=== PATIENT | male | born 1960 | race Caucasian/White ===

== ENCOUNTER 2024-03-10 21:38 | Inpatient (IN) | payer OTHER, SELFPAY ==
[2024-03-10 17:45] VITALS: BP 140/93
--- NOTE | 2024-03-10 18:39 | ED.GENMED ---
History of Present Illness
General
Chief Complaint: Abdominal Symptoms
Time Seen by Provider: 03/10/24 18:35
Travel History
Have you had any contact with someone who has COVID-19?: No
Do you have any symptoms of coronavirus? Fever > 100 degrees, chills, cough, shortness of breath, sore throat, loss of taste or smell, muscle aches, or headache?: No
History of Present Illness
History of Present Illness:
HPI: The patient presents with abrupt onset nausea and vomiting that started about 6 hours ago. He did not have any diarrhea. He states that he had a bowel movement about 4 hours ago that was like 'small boulders'�no diarrhea. He still has
ongoing symptoms. He denies any prior abdominal surgeries.
EXAM:
GENERAL: The patient has some intermittent retching and appears uncomfortable
HEENT: Moist oral mucosa
CARDIOVASCULAR: No murmurs, normal heart rate, regular rhythm, No chest wall tenderness
PULMONARY: No respiratory distress, breath sounds are clear and equal
ABDOMEN: Soft with no peritoneal signs, mild diffuse tenderness
NEUROLOGIC: Excellent strength all extremities, no coordination deficits
PSYCHIATRIC: Appropriate mental status, normal insight and judgement
EXTREMITIES: Nontender, no edema, moves all extremities equally
SKIN: No rash, no lesions
TIME OF INITIAL ENCOUNTER: 6:30 PM
NUMBER AND COMPLEXITY OF PROBLEMS ADDRESSED AT THE ENCOUNTER
� Chronic conditions affecting care: CAD, high blood pressure, hyperlipidemia, WPW, diabetes
� Acute Exacerbation and/or Progression of Chronic Illness:
� Differential Diagnosis includes: Viral syndrome/gastroenteritis, appendicitis less likely, bowel obstruction unlikely
AMOUNT AND/OR COMPLEXITY OF DATA TO BE REVIEWED AND ANALYZED
� I performed an independent evaluation of and my interpretation is:
EKG:
CT: CT imaging personally viewed and shows evidence of a bowel obstruction.
X-rays:
Laboratory Studies: White count 13.8, hemoglobin 0.4, renal function normal, glucose 365
Other:
� Review of other/old records: The patient was here in 2021 with chest pain in the setting of HOCM and had an elevated troponin at that time
� Clinical information was obtained by an independent historian: None needed
� Prescriptions/Medications Considered but not given:
� Further testing considered but not performed:
RISK OF COMPLICATIONS AND/OR MORBIDITY OR MORTALITY OF PATIENT MANAGEMENT
� Social determinants of health affecting care:
� Discussion with other providers: Discussed case with Dr. Remy -suspects that leukocytosis is related to dehydration as he does have hemoglobin of 16.4. The patient was given IV fluids. Dr. Nieves for admission
� Escalation of care including admission/observation vs risk of discharge considered: CT imaging shows bowel obstruction. Leukocytosis is noted. However on reassessment the patient appears more comfortable. Recommend keeping
the patient in the hospital for IV fluids/n.p.o.
Past History
Past History
ED Past Medical History: Arrthythmia (wpw), CAD, HTN, Hypercholesterolemia, NIDDM and Other (HOCM, WPW, LBBB, MR, BLAS, Migraines, )
ED Past Surgical History: Cardiac (ablation) and Orthopedic (Right hip replacement, Right hand surgery)
Social History
Tobacco: Smoker
Alcohol: None
Drug: None
Personal:
Living: with family
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
Family History
Family History: Other (Noncontributory)
Phy Exam
Physical Exam
Physical Exam:
See HPI
Course
Orders/Labs/Results
Orders:
Orders
03/10/24 18:35
0.9% Sodium Chloride 1000 ml [Nss] 1,000 ml IV BOLUS
Ondansetron Injectable [Zofran] 4 mg IV NOW STA
03/10/24 18:39
CT Abd/pelvis W Iv Cont Urgent
Comment:
Reason For Exam: pain vomiting
Famotidine [Pepcid] 20 mg IV NOW STA
03/10/24 18:44
Comprehensive Metabolic Panel Urgent
Lipase Urgent
03/10/24 18:45
Complete Blood Count/With Diff Urgent
Abnormal Lab Results
03/10/24 03/10/24
18:44 18:45
WBC 13.8 H 10^3/uL
(4.8-10.8)
MPV 10.9 H fL
(7.4-10.4)
Abs Immat Gran (auto) 0.1 H 10^3/uL
(0-0.05)
Absolute Neuts (auto) 12.2 H 10^3/uL
(1.4-6.5)
Absolute Lymphs (auto) 0.9 L 10^3/uL
(1.2-3.4)
Neutrophils % 88.2 H %
(42.2-75.2)
Lymphocytes % 6.8 L %
(20.5-51.1)
Glucose 365 H mg/dl
(70-99)
Calcium 10.4 H mg/dl
(8.4-10.2)
03/10/24 18:45
03/10/24 18:44
Vital Signs
Initial and Last Documented VS:
Initial Vital Signs
Temp Pulse Resp BP Pulse Ox
97.6 F 127 18 140/93 99
03/10/24 17:45 03/10/24 17:45 03/10/24 17:45 03/10/24 17:45 03/10/24 17:45
Last Documented Vital Signs
Temp Pulse Resp BP Pulse Ox
97.6 F 118 19 155/83 99
03/10/24 17:45 03/10/24 19:30 03/10/24 19:30 03/10/24 19:00 03/10/24 17:45
*Critical Care Note
Total Time (30-74mins, 75-104mins- exclusive of procedures): Not Applicable
ED Attending Note
-
Portions of this chart may have been created with voice recognition software.� Occasional wrong word or��sound alike� substitutions may have occurred due to the inherent limitations of voice recognition software.
Discharge Plan
Departure
Patient Disposition: Admit
Date of Disposition: 03/10/24
Time of Disposition: 20:52
Presentation/result/management discussed w/ accepting MD/DO: Hospitalist
Discharge Problem:
Small bowel obstruction
Prescriptions:
No Action
aspirin 81 mg Tablet,Chewable
81 mg PO DAILY 30 Days Qty: 30 0RF
rosuvastatin 40 mg Tablet
40 mg PO QPM 30 Days Qty: 30 0RF
insulin glargine [Lantus Solostar U-100 Insulin] 100 unit/mL (3 mL) insulin pen
10 unit SC QPM Qty: 15 2RF
(DME) pen needle, diabetic [1st Tier Unifine Pentips Plus] 29 gauge x 1/2' needle
See Rx Instructions .ROUTE Qty: 100 1RF
Rx Instructions:
As directed
atenolol 25 mg tablet
25 mg PO BID Qty: 60 2RF
Interventions
Interventions:
*Risk Screen - Suicide Last Done: 03/10/24 18:58
*General Assessment Last Done: 03/10/24 18:58
*Neglect/Abuse Screening Last Done: 03/10/24 18:58
ED- Fall Risk Assessment Last Done: 03/10/24 18:58
*ED COVID-19 Vaccine History Last Done: 03/10/24 17:46
BN-Lvuaui-Lmdnitjhtk Assessment Last Done: 03/10/24 18:58
Discharge Date and Time
Print Language: MONGOLIAN
[2024-03-10] MEDS: NSS 1000 IV ×2 (18:43→22:51)
[2024-03-10] MEDS: ZOFRAN 4 MG IV (18:44)
[2024-03-10] MEDS: PEPCID 20 MG IV (18:44)
[2024-03-10 18:51] VITALS: BP 155/103
[2024-03-10 18:59] LABS: % Basophils 0.6 % (0-2); % Eosinophils 0.1 % (0-6); % Immature Granulocytes 0.4 % (0-0.5); % Lymphocytes 6.8 % (20.5-51.1); % Monocytes 3.9 % (1.7-9.3); % Neutrophils 88.2 % (42.2-75.2); Absolute Basophils 0.1 10^3/uL (0-0.2); Absolute Immature Granulocytes 0.1 10^3/uL (0-0.05); Absolute Lymphocytes 0.9 10^3/uL (1.2-3.4); Absolute Monocytes 0.5 10^3/uL (0.1-0.6); Absolute Neutrophils 12.2 10^3/uL (1.4-6.5); Hemoglobin 16.4 g/dL (13.0-18.0); Mean Corp Hgb Conc. 35.7 g/dL (33.0-37.0); Mean Corpuscular Hgb 30.1 pg (27.0-31.0); Mean Corpuscular Volume 84.4 fL (80.0-94.0); Mean Platelet Volume 10.9 fL (7.4-10.4); Nucleated Red Blood Cells % 0 % (-); Platelet Count 240 10^3/uL (130-400); Red Blood Cell Count 5.45 10^6/uL (4.70-6.10); White Blood Cell Count 13.8 10^3/uL (4.8-10.8)
[2024-03-10 19:00] VITALS: BP 155/83
[2024-03-10 19:11] LABS: ALT (SGPT) 19 U/L (0-50); AST (SGOT) 20 U/L (17-59); Albumin 4.3 g/dl (3.5-5.0); Alkaline Phosphatase 98 U/L (38-126); Blood Urea Nitrogen 17 mg/dl (9-20); Calcium 10.4 mg/dl (8.4-10.2); Carbon Dioxide 29 mmol/L (22-30); Chloride 99 mmol/L (98-107); Glucose 365 mg/dl (70-99); Lipase 85 U/L (23-300); Potassium 4.5 mmol/L (3.5-5.1); Sodium 136 mmol/L (135-145); Total Bilirubin 0.7 mg/dl (0.2-1.3); Total Protein 6.9 g/dl (6.3-8.2); eGFR > 60.00
--- NOTE | 2024-03-10 21:33 | HPS.HSE ---
Family Physician
-
Family Physician: NOT KNOW UNKNOWN - PT DOES
Chief Complaint
-
Abd Pain
History of Present Illness
Patient is a 63y M with PMH significant for WPW and DM-II who presents to ED complaining of abdominal pain. Patient states that his symptoms started shortly after lunch today at [employer]. He developed a 'gassy' feeling that did not improve despite
time and 3 tabs of PeptoBismol. When he returned home from lunch, he had a small BM around 3 PM. This did not improve his symptoms. In fact, his pain became much more sever following this. Patient describes severe abdominal pain with inability to
find a comfortable position. He attempted to induce vomiting at home unsuccessfully. He presented to the ED for evaluation when his symptoms did not adam.
Patient has had no emesis [employer] or here in the ED.
He denies any prior history of similar symptoms.
He denies any prior history of intra-abdominal surgery.
Patient has multiple medical issues including Keisha-Parkinson's White Syndrome, HOCM, DM-II and hypertension. However, he admits that he is not taking any medications at present and has not been in quite some time.
Medical History
Past Medical History
Past Medical History: Reports Other
Additional Past Medical History:
WPW
HOCM
Hypertension
DM-II
Known LBBB
Past Surgical History: Reports Other
Additional Past Surgical History:
Cardiac / Catheter Ablation x Multiple - Partial Modification of Pathway (failed ablation)
Right VANNA
Right Hand Surgery
Social History
Tobacco: Smoker (Current every day smoker. 1/2 ppd with total of 40+ pack years.)
Alcohol: None
Drug: None
Family History
Family History: Other (Father: Colon Cancer Sister: Breast Cancer)
Allergies / Home Medications
Allergies reflects when Allergies were last updated in [facility].
Home Medications with original date entered in [facility]
Allergy/Medication List:
Allergies
Allergy/AdvReac Type Severity Reaction Status Date / Time
oxycodone Allergy Itching Verified 10/24/22 21:45
codeine [Codeine] AdvReac Nausea / Verified 10/24/22 21:45
Vomiting
Home Medications
No Meds [No Current Medications] 03/10/24
Patient is prescribed atenolol, Lantus and rosuvastatin - but admits he has taken no meds in quite some time.
Review of Systems
-
History Source: Patient
A 12 point ROS was completed and negative except as noted: Yes
Constitutional: Denies Fever or Chills
Respiratory: Denies Cough or Trouble Breathing
Cardiac: Denies Chest Pain or Palpitations
Abdomen/GI: Reports Abdominal Pain and Nausea; Denies Vomiting, Diarrhea, Bloody Stools or Black Stools
: Denies Dysuria, Frequency or Flank Pain
Neurological: Denies Dizzy or Headache
Psych: Denies Depression or Anxiety
Physical Exam
Vital Signs
Vital Signs
Temp Pulse Resp BP Pulse Ox
97.6 F 118 19 155/83 99
03/10/24 17:45 03/10/24 19:30 03/10/24 19:30 03/10/24 19:00 03/10/24 17:45
Physical Exam
General: Other (63y M in mild distress due to abdominal pain.)
HEENT: Moist mucous membranes and PERRLA
Respiratory: Clear; No Wheezes, Rales or Rhonchi
Cardiac: S1/S2, Tachycardia and Murmur (II/ MONI)
GI: Soft, Non Distended, Normal Bowel Sounds and Other (Pos tenderness with voluntary guarding - especially across lower abdomen.)
Musculoskeletal: No Clubbing, No Cyanosis and No Edema
Neuro: AO x 3
Laboratory Results
-
03/10/24 18:45
03/10/24 18:44
Laboratory Results
Total Bilirubin 0.7 mg/dl (0.2-1.3) 03/10/24 18:44
AST 20 U/L (17-59) 03/10/24 18:44
ALT 19 U/L (0-50) 03/10/24 18:44
Alkaline Phosphatase 98 U/L (38-126) 03/10/24 18:44
Lipase 85 U/L (23-300) 03/10/24 18:44
Impression/Plan
-
A/P: Patient is a 63y M with PMH significant for WPW, DM-II and noncompliance who presents to ED complaining of severe abdominal pain that started this afternoon.
SBO
- Admit for further evaluation and treatment.
- CT done today shows suspected SBO - though no transition point is identified by CT report.
- NPO, IVF, supportive care with pain control and antiemetics.
- NG decompression if pain worsens or patient develops emesis.
- Surgery consulted for additional recommendations / potential intervention.
- Follow for clinical improvement.
- Note no prior abdominal surgeries.
WPW
- Patient tachycardic on exam and tele showing HR = 124 bpm.
- Possible sinus tach due to pain; however, concern with partially treated WPW and regularity of his tachycardia.
- Check EKG now.
- Monitor on telemetry.
- Avoid AV doris blockers.
- Cardiology evaluation for additional recommendations.
DM-II
- Uncontrolled / noncompliant with treatment.
- Glucose > 300 today without elevated anion gap, etc.
- Begin Lantus daily.
- Follow glucose and cover with SSI as needed.
- Update A1C.
Benign Hypertension
- Previously on atenolol, but patient stopped this as he felt fatigued.
- Monitor BP with adequate pain control.
- Consider initiation of BP medication if needed.
DVT Prophylaxis: SCDs
Code Status: Full
[2024-03-10 22:47] VITALS: BP 154/92; BMI 25.9
[2024-03-10] MEDS: TORADOL 15 MG IV (22:53)
[2024-03-10 23:53] LABS: Glucose - Point of Care 301 mg/dl (70-99)
[2024-03-11] MEDS: TENORMIN 50 MG PO (00:41)
[2024-03-11] MEDS: LANTUS 0.0299999999999999989 UNITS SC (00:45)
[2024-03-11 02:47] LABS: TSH Reflex To Free T4 1.23 uIU/ml (0.47-4.68)
[2024-03-11 03:53] VITALS: BP 105/62
[2024-03-11 05:49] VITALS: BMI 26.0
[2024-03-11 05:56] LABS: Glucose - Point of Care 247 mg/dl (70-99)
--- NOTE | 2024-03-11 06:01 | PTCARENOTE ---
Patient received from ED via stretcher and ambulated to bed with Ax1. He was oriented to room and surroundings. Patient continues c/o abdominal pain and cramping. No BM this shift. Toradol as per prn order with relief. IVF as ordered. Tele
rhythm unclear. HR 110-120's. Am EKG done A-flutter with variable AV Block. TT to COURT COMMISSIONER, covering house. Atenolol as per order. Rate decreased to 70's and Aflutter noted on tele monitor. Fingerstick glucose 301. Patient refused Lantus 10
units stated she would take 3 units. Order obtained and administered. Am Fingerstick 247. Patient voided 300ml sade urine, Bladder scan 0.
[2024-03-11] MEDS: NOVOLOG FLEXPEN-MODERATE RESISTANCE 3 UNITS SC ×2 (06:11→12:41)
[2024-03-11] MEDS: NSS 1000 IV ×3 (06:13→22:37)
[2024-03-11 06:55] LABS: Hematocrit 41.1 % (39.0-52.0); Hemoglobin 14.4 g/dL (13.0-18.0); Mean Corpuscular Hgb 29.9 pg (27.0-31.0); Mean Corpuscular Volume 85.4 fL (80.0-94.0); Mean Platelet Volume 11.6 fL (7.4-10.4); Platelet Count 233 10^3/uL (130-400); Red Blood Cell Count 4.81 10^6/uL (4.70-6.10); Red Cell Dist. Width 12.9 % (11.5-14.5); White Blood Cell Count 10.1 10^3/uL (4.8-10.8)
--- NOTE | 2024-03-11 07:47 | CON.CAR ---
Addendum entered and electronically signed by Jignesh Smith MD 03/11/24 19:23:
63-year-old man with history of hypertrophic cardiomyopathy, also with history of WPW syndrome status post attempts at ablation, now with an accessory pathway that is not consistently conducting and not associated with tachyarrhythmia. Last seen in
our office in August 2020 now admitted with partial small bowel obstruction currently being managed medically, found to have new onset atrial flutter with controlled ventricular response. No symptoms, rate controlled
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
PSH: Right total hip arthroplasty, ORIF of right wrist
Meds: Currently none, had been on atenolol, statins in the past, had been on glimepiride
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
FH: Currently noncontributory
Allergies: Poorly tolerant of statins, OxyContin
ROS: Negative except as above
126/75, pulse 64, respirate 16, afebrile, sats 98%, disheveled, head neck exam unremarkable, lungs relatively clear, systolic murmur, no obvious jugular venous pressure, carotid bruits, abdomen somewhat tender to palpation with hypoactive bowel
sounds extremities without edema neuro nonfocal
Abdominal and pelvic CT: Pancreatic atrophy consistent with pancreatitis
Hemoglobin 14.4 white count 10.1, BUN and creatinine 19 and 0.6, troponin 0.017
Atrial flutter with 2:1 conduction and PVCs, intraventricular conduction delay
Impression:
SBO 03/10/24
Newly diagnosed atrial flutter of unclear duration
Hypertrophic cardiomyopathy
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
HTN
cLBBB
Mild to mod MR by echo 05/16/22
DM 2
Depression
Hypercholesterolemia
Ongoing tobacco abuse
History of sleep apnea
Lexiscan nuclear stress test 07/19/2017: Moderate area of mildly decreased perfusion that is minimally reversible in the inferior lateral, inferior, inferior septal segments consistent with soft tissue attenuation, EF 55%, dilated left ventricle
Echo February 2024: Small LV with severe LVH, EF 50-55%, LVOT gradient 147 mmHg increasing to 229 mmHg with Valsalva, severely dilated left atrium, mildly dilated right atrium, normal RV, mild to moderate MR chordal KADIE, aortic sclerosis with mild to
moderate aortic regurgitation normal pulmonary artery systolic pressure
Plan:
He presents with atrial flutter of uncertain duration and a ventricular response that is reasonable despite the absence of beta-kristi therapy. Furthermore he has hypertrophic cardiomyopathy with an extreme LVOT gradient.
This is all in the setting of a partial small bowel obstruction that hopefully can be managed noninvasively.
Inadequate social support and noncompliance or major issues in this case as well.
At present would simply focus on anticoagulation and adequate rate control. If a beta-kristi can be added without producing symptomatic bradycardia, that would be ideal.
For now, continue heparin. Start beta-blockade over the next 24 hours if possible.
Happily and surprisingly, his accessory pathway seems to have atrophied and is no longer a factor, which is especially of benefit in the setting of atrial arrhythmia
He will need case management consultation to see if he can obtain insurance, qualify for Medicaid, etc.
Thereafter we can determine whether he should undergo transesophageal echo, cardioversion, rate control, etc.
Further management can be based upon the results of his clinical course.
Original Note:
Consultation
Consultation Request
Date/Time Consultation Requested: 03/10/24 at 2305
Date/Time Consultation Performed: 03/11/24 at 0730
Requesting Provider: Dr. Nivees with the hospitalists
Performing Provider: Dr. ZIGGY Smith
Reason for Consultation: Abnormal ECG, possible atrial flutter
Medical History
-
History of Present Illness:
Patient came to [facility] last night with abdominal pain and is now admitted with a SBO, cardiology has been consulted for abnormal ECG. Patient has a h/o WPW and had previous slow pathway modification 25+ years ago that was only partially successful.
Patient also has a h/o HOCM. Patient was last seen in the cardiology office on 03/02/20 and has been a no-show for subsequent appointments. Patient was taking atenolol 50 mg daily at last office visit, but says he is no longer taking any daily
medications. Patient denies chest pain or palpitations. He says he had ANNA that felt like being out of shape when he was walking the boardwalk at the [place] this past Monday night, but otherwise no SOB. He ate lunch at [employer] on Monday afternoon
and hours later started with abdominal pain and vomiting. He came to [facility] and was admitted with SBO. ECG showed sinus tachycardia and with his h/o WPW and HOCM cardiology was consulted. ECG and tele reviewed by me today looks like atrial flutter. No
h/o atrial flutter.
PMH:
Hypertrophic cardiomyopathy
Xierq-Xttxeiuhb-Cfxfz syndrome status post attempted ablation, accessory pathway currently conduction intermittently only
HTN
cLBBB
Mild to mod MR by echo 05/16/22
DM 2
Depression
Hypercholesterolemia
Ongoing tobacco abuse
History of sleep apnea
Past Medical History
Past Medical History: Other (in HPI)
Past Surgical History: Cardiac (WPW with failed ablation with partial modification of pathway x2) and Orthopedic
Social History
Tobacco: Smoker
Alcohol: None
Drug: None
Personal: Single
Living: Alone
Employment: Employed (works for a [employer])
Family History
Family History: Cancer and Diabetes
Allergies / Home Medications
Allergy/AdvReac Type Severity Reaction Status Date / Time
oxycodone Allergy Itching Verified 10/24/22 21:45
codeine [Codeine] AdvReac Nausea / Verified 10/24/22 21:45
Vomiting
�Medication �Instructions �Recorded �Confirmed �Type
No Meds [No Current Medications] 03/10/24 03/10/24 History
Review of Systems
-
History Source: Patient
All other systems: Negative unless noted
Physical Exam
Vital Signs
Temp Pulse Resp BP Pulse Ox
98.5 F 85 18 105/62 98
03/11/24 03:53 03/11/24 03:53 03/11/24 03:53 03/11/24 03:53 03/11/24 03:53
GEN: NAD. AAOx3
HEENT: EOMI, MMM
LUNGS: CTA B/L, no wheezes or rales
CV: Irreg irreg, S1/S2, no murmur
ABD: soft, BS+, NT, ND
EXT: No clubbing, cyanosis, lesions or edema B/L
NEURO: Gross non-focal
SKIN: Warm, dry and pink. No rash
Lab Results
03/11/24 05:56
Impression / Plan
-
PCP: Garret BLASTING MINER
Human Resources Office Assistant: Dr. ZIGGY Smith
Impression:
Admitted with SBO 03/10/24
Newly diagnosed atrial flutter of unclear duration
Hypertrophic cardiomyopathy
Kwjjz-Gdoktyzxv-Gsoen syndrome status post attempted ablation, accessory pathway currently conduction intermittently only
HTN
cLBBB
Mild to mod MR by echo 05/16/22
DM 2
Depression
Hypercholesterolemia
Ongoing tobacco abuse
History of sleep apnea
Lexiscan nuclear stress test 07/19/2017: Moderate area of mildly decreased perfusion that is minimally reversible in the inferior lateral, inferior, inferior septal segments consistent with soft tissue attenuation, EF 55%, dilated left ventricle
Echo 07/19/2017:�EF 70 to 75%, severe LVH, stage I DD, LVOT gradient peak gradient 82 mmHg, moderate dilated LA, normal RA, thickened MV with moderate systolic anterior motion in the anterior leaflet and moderate eccentric posterior directed MR.
Calcified AV.� Trace AI.� Trace TR, PAP 20 to 25 mmHg
Echo 05/16/22: EF 55-60%, normal wall motion, severe conc LVH, LVOT gradient 102 mmHg at rest that increases 177 mmHg with Valsalva, stage I diastolic dysfunction, mild aortic regurgitation, mildly dilated aortic root
Plan:
-Patient came to [facility] last night with abdominal pain and is now admitted with a SBO, cardiology has been consulted for abnormal ECG. Patient has a h/o WPW and had previous slow pathway modification 25+ years ago that was only partially successful.
Patient also has a h/o HOCM. Patient was last seen in the cardiology office on 03/02/20 and has been a no-show for subsequent appointments. Patient was taking atenolol 50 mg daily at last office visit, but says he is no longer taking any daily
medications. Patient denies chest pain or palpitations. He says he had ANNA that felt like being out of shape when he was walking the boardwalk at the [place] this past Monday night, but otherwise no SOB. He ate lunch at [facility] on Monday afternoon
and hours later started with abdominal pain and vomiting. He came to [facility] and was admitted with SBO. ECG showed sinus tachycardia and with his h/o WPW and HOCM cardiology was consulted. ECG and tele reviewed by me today looks like atrial flutter. No
h/o atrial flutter.
-Check echo
-Tele and ECG reviewed by me, appears to be newly diagnosed atrial flutter of unclear duration. He is asymptomatic.
-Will add Heparin gtt.
-Patient does not appear to have health insurance, will ask CM to check on cost of Eliquis 5 mg BID. Patient can use the 1 month free card and afterwards might be eligible for patient prescription assistance.
-Patient had fatigue with atenolol. HRs controlled so will not start BB at this time.
-Consider TAMIKO/CV prior to discharge pending SBO outcome. Patient would need to be able to take uninterrupted for 4 weeks after CV.
-Patient previously prescribed glimepiride 4 mg BID and metformin 1000 mg BID, but has not taken any meds for years. HgbA1c is pending, but patient has been hyperglycemic since admission. Recommend tighter blood sugar control.
-Eventual outpatient BLAS evaluation with new atrial arrhythmia.
-TSH was normal
[2024-03-11 07:55] VITALS: BP 102/60
[2024-03-11 07:58] LABS: Blood Urea Nitrogen 19 mg/dl (9-20); Calcium 9.6 mg/dl (8.4-10.2); Carbon Dioxide 22 mmol/L (22-30); Chloride 107 mmol/L (98-107); Estimated Creatinine Clearance > 125 ml/min; Glucose 250 mg/dl (70-99); Potassium 4.5 mmol/L (3.5-5.1); Sodium 136 mmol/L (135-145); eGFR > 60.00
[2024-03-11] MEDS: PROTONIX IV 40 MG IV (09:13)
[2024-03-11] MEDS: NSS (PRESERVATIVE FREE) 10 ML IV (09:13)
--- NOTE | 2024-03-11 09:44 | W.PN.HOSP.TC ---
Today's Communication/Plan
-
see bold
Assessment / Plan
Assessment / Plan
HPI: 63y M with PMH significant for WPW, DM-II and noncompliance who presents to ED complaining of severe abdominal pain that started this afternoon.
SBO
- CT done shows suspected SBO - though no transition point is identified by CT report.
- Appreciate general surgery input, NPO, IVF, supportive care with pain control and antiemetics.
- NG decompression if pain worsens or patient develops emesis.
- Likely will need small bowel follow-through with contrast tomorrow
WPW
Newly diagnosed atrial flutter
-Appreciate cardiology input, started on heparin drip
-Monitor on telemetry
DM-II
- Uncontrolled / noncompliant with treatment.
- Hemoglobin A1c 13.1, patient stopped taking his metformin and his glimepiride
- Patient refusing glargine 10 units at bedtime
Benign Hypertension
- Previously on atenolol, but patient stopped this as he felt fatigued.
- Monitor BP with adequate pain control.
DVT Prophylaxis: Heparin drip
Code Status: Full
Total time spent to see the patient on the floor, examine the patient, review data and lab results, discuss treatment plan with patient, nursing staff around 35 minutes.
Physical Exam
General: No acute distress
HEENT: Normocephalic, Atraumatic, EOMI, MMM
Respiratory: Clear to Auscultation bilaterally
Cardiac: Normal S1/S2, Regular Rate and Rhythm
GI: Soft, hypoactive bowel sounds, nontender, mildly distended
Extremities: No Clubbing, Cyanosis, or Edema
Neuro: Nonfocal/Grossly Intact
Psych: Calm, Cooperative
Derm: No Visible lesions
Anticipated Discharge: 24 - 48 hours
Subjective/Interval History
-
Date of Service: March 11, 2024
Patient denies nausea, vomiting, abdominal pain. No bowel movement. He is passing gas. No fever.
Objective Data
-
Labs:
Laboratory Results
03/11/24 03/11/24
05:56 09:04
WBC 10.1
Hgb 14.4
Hct 41.1
Plt Count 233
APTT 24.0
Sodium 136
Potassium 4.5
Chloride 107
Carbon Dioxide 22
BUN 19
Creatinine 0.6 L
Glucose 250 H
Calcium 9.6
Vital Signs:
Vital Signs
Temp Pulse Resp BP Pulse Ox
98.2 F 60 16 102/60 97
03/11/24 07:55 03/11/24 07:55 03/11/24 07:55 03/11/24 07:55 03/11/24 07:55
I&O
03/10/24 03/11/24 03/12/24
06:59 06:59 06:59
Intake Total 1000 / 1000
Output Total 300 / 300
Balance 700 / 700
[2024-03-11] MEDS: HEPARIN 25000 UNITS/250 ML IV (10:06)
--- NOTE | 2024-03-11 10:11 | CON.GS ---
Addendum entered and electronically signed by Arias Remy MD 03/11/24 17:15:
I saw and examined the patient independently.
The Senior Office Assistant's note was reviewed and I agree with the note, assessment and plan except where noted below.
Comment: This is a 63-year-old male with a history of Aucvk-Cewoccdqa-Wwdev, not on medications, diabetes uncontrolled, no prior abdominal surgeries who presents with a 1 day history of abdominal pain after eating a large lunch. He did have some
nausea but no vomiting. He does endorse passing flatus today and had a small BM yesterday evening. He did have a CT scan last night which did show dilated proximal loops of bowel and distal decompressed loops without clear transition point
although there is a tapering that could be appreciated. On exam today he is soft minimally distended and nontender.
Will manage this partial small bowel obstruction nonoperatively for now.
N.p.o., IV fluids.
If clinically improves will probably be able to advance his diet tomorrow however if not we will plan for contrasted small bowel follow-through study.
Patient agreeable to plan of care above.
Remainder of medical care per primary.
General surgery will continue to follow.
Original Note:
Medical History
-
Chief Complaint: Abdominal pain
History of Present Illness:
Mr. Ford is a 63 yo male with a h/o WPW, DM and no prior abdominal surgeries who presents with abdominal pa9in which began yesterday after a large lunch at [facility]. He notes that he tried to vomit to see if this would give him relief but was unable.
He otherwise denies nausea/vomiting. He notes his pain is better but is yeast distiller to the mid upper abdomen on exam with distention noted. He reports that he was able to pass a very small BM yesterday evening and has had some flatus since. He
denies sick contacts.
Past Medical History
Past Medical History: Arrhythmias (WPW, HOCM), HTN and NIDDM
Past Surgical History: Cardiac (ablations) and Orthopedic (right alma, right hand surgery)
Social History
Tobacco: Smoker (1/2 ppd x40+ years)
Alcohol: None
Drug: None
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
Family History
Family History: Cancer (colon ca father)
Allergies / Home Medications
Allergy/AdvReac Type Severity Reaction Status Date / Time
oxycodone Allergy Itching Verified 10/24/22 21:45
codeine [Codeine] AdvReac Nausea / Verified 10/24/22 21:45
Vomiting
�Medication �Instructions �Recorded �Confirmed �Type
No Meds [No Current Medications] 03/10/24 03/10/24 History
Review of Systems
-
History Source: Patient
All other systems: Negative unless noted
A 10 point review of systems was completed, and was negative except as per HPI.
Physical Exam
Vital Signs
Temp Pulse Resp BP Pulse Ox
98.2 F 60 16 102/60 97
03/11/24 07:55 03/11/24 07:55 03/11/24 07:55 03/11/24 07:55 03/11/24 07:55
03/10/24 03/11/24 03/12/24
06:59 06:59 06:59
Actual Weight 79.832 kg
Body Mass Index (BMI) 26.0
Lab Results
03/11/24 05:56
03/11/24 05:56
WBC 10.1 10^3/uL (4.8-10.8) 03/11/24 05:56
Hgb 14.4 g/dL (13.0-18.0) 03/11/24 05:56
Hct 41.1 % (39.0-52.0) 03/11/24 05:56
Plt Count 233 10^3/uL (130-400) 03/11/24 05:56
Abs Immat Gran (auto) 0.1 10^3/uL (0-0.05) H 03/10/24 18:45
Neutrophils % 88.2 % (42.2-75.2) H 03/10/24 18:45
Physical Exam
General: Well Developed, Well Nourished and No Apparent Distress
HEENT: Moist Mucous Membranes
Respiratory: Non Labored Respirations
GI: Soft, Tender (right mid abdomen) and Distended (tympany present)
Skin: Warm and Dry
Neuro: Awake, Alert and AO x 3
Psych: Calm
Data Reviewed
-
CT Scan: Image Personally Visualized and interpreted, Report Reviewed by me, Discussed with Physician and Discussed with Patient
Labs: Labs Reviewed by me, Discussed with Physician and Discussed with Patient
Old Records: Reviewed
Assessment / Plan
-
63 yo male with h/o WPW and DM and no prior abdominal surgeries presenting with acute onset of abdominal pain yesterday. Leukocytosis on presentation now resolved. AFVSS. CT with IV contrast only reviewed with SB distention present and concern for
possible pSBO of unclear etiology. No evidence of closed loop obstruction or bowel threat/compromise. Passing flatus with some improvement in symptoms/pain.
No plans for emergent surgery at this time, will follow closely with medical management
--NPO for bowel rest, NGT if develops n/v
--IVF while NPO
--analgesics/antiemetics prn
--tentative PO contrast study if no improvement
[2024-03-11 10:16] LABS: Glycohemoglobin (HgbA1c) 13.1 % (4.0-5.6)
[2024-03-11 11:20] VITALS: BP 117/60
[2024-03-11 12:20] LABS: Glucose - Point of Care 208 mg/dl (70-99)
[2024-03-11 12:58] LABS: Glucose - Point of Care 194 mg/dl (70-99)
--- NOTE | 2024-03-11 13:18 | PTCARENOTE ---
pt c/o chest discomfort, no pain. states having difficulty breathing and his heart feels like racing. pt is clammy. EKG done Aflutter, BP is 113/66 Hr in 60's, pulse o2 97% on room air. Accu check 196. no fever. Cardio and Hospitalist made aware.
no new order at this time. will continue plan of care.
[2024-03-11 13:50] LABS: Troponin I 0.018 ng/ml
[2024-03-11 15:55] VITALS: BP 126/75
--- NOTE | 2024-03-11 15:57 | CM ---
Alert awake oriented patient who lives with his daughter Maggie who lives in an apartment with 14 step to enter. He is independent in driving and in all activities of daily living.He was offered VN he declined need.Pt has no insurance . LM with
[facility] concerning no insurance.
No VN hx / No SNF history
Pharmacy [facility]
PCP DR Aniyah Tyson
PLAN Home Declined VN
[2024-03-11 16:16] LABS: APTT 33.8 Sec (23.4-35.0)
[2024-03-11 16:27] LABS: Troponin I 0.017 ng/ml
[2024-03-11 17:39] LABS: Glucose - Point of Care 168 mg/dl (70-99)
[2024-03-11] MEDS: NOVOLOG FLEXPEN-MODERATE RESISTANCE 1 UNITS SC (17:50)
[2024-03-11] MEDS: DILAUDID 0.5 MG IV (19:14)
[2024-03-11 19:55] VITALS: BP 113/64
[2024-03-11 23:05] VITALS: BP 122/68
[2024-03-11 23:21] LABS: APTT 51.5 Sec (23.4-35.0)
[2024-03-11 23:36] LABS: Glucose - Point of Care 141 mg/dl (70-99)
[2024-03-11] MEDS: NOVOLOG FLEXPEN-MODERATE RESISTANCE SC (23:37)
[2024-03-12 03:49] VITALS: BP 130/83
[2024-03-12] MEDS: HEPARIN 25000 UNITS/250 ML IV ×2 (05:16→21:19)
[2024-03-12 05:44] LABS: Glucose - Point of Care 150 mg/dl (70-99)
[2024-03-12] MEDS: NOVOLOG FLEXPEN-MODERATE RESISTANCE 1 UNITS SC ×2 (05:44→17:03)
[2024-03-12 06:00] VITALS: BMI 26.6
[2024-03-12 06:17] LABS: Troponin I 0.021 ng/ml
[2024-03-12 07:47] VITALS: BP 138/85
[2024-03-12] MEDS: NSS (PRESERVATIVE FREE) 10 ML IV (08:02)
[2024-03-12] MEDS: NSS 1000 IV (08:02)
[2024-03-12] MEDS: PROTONIX IV 40 MG IV (08:02)
--- NOTE | 2024-03-12 09:04 | W.PN.GS2 ---
Addendum entered and electronically signed by Beni David MD 03/12/24 11:40:
Nursing reports that patient has had a bowel movement. Will hold on UGI given clinical improvement. Plan to start trial of clears.
Original Note:
Today's Communication / Plan
-
-- SBFT, dietary advancement pending findings
-- OOB/ambulate, correct lytes, minimize narcotics
-- No plans for surgical intervention at this time
Assessment / Plan
-
Patient is a 63 yo M p/w pSBO versus ileus
Some clinical improvement with passage of flatus. Continues to have crampy lower abdominal pain with no passage of a BM. Likely slow clinical improvement. Plan for UGI with SBFT both for diagnostic and therapeutic purposes. Dietary advancement
pending these findings. All questions answered.
-- SBFT, dietary advancement pending findings
-- OOB/ambulate, correct lytes, minimize narcotics
-- No plans for surgical intervention at this time
Subjective Data
-
Date of Service: March 12, 2024
Reports abdominal crampy lower abdominal pain in the evening. Denies any nausea or vomiting. No worsening abdominal distention. Passing flatus, no BM. Ambulating.
Objective Data
-
Intake and Output
03/11/24 03/12/24 03/13/24
06:59 06:59 06:59
Intake Total 1000 / 1000 3282 / 3282
Output Total 300 / 300 190 / 190
Balance 700 / 700 3092 / 3092
Intake:
Oral fluids 0 / 0
IV fluids (Total) 1000 / 1000 3000 / 3000
IV piggybacks 282 / 282
Output:
Urine, Voided 300 / 300 190 / 190
Other:
Number of approximated MODERATE 1
amounts of urine
Vital Signs
Temp Pulse Resp BP Pulse Ox
98.4 F 92 18 138/85 96
03/12/24 07:47 03/12/24 07:47 03/12/24 07:47 03/12/24 07:47 03/12/24 07:47
Lab Results
03/11/24 05:56
03/11/24 05:56
Calcium 9.6 mg/dl (8.4-10.2) 03/11/24 05:56
Total Bilirubin 0.7 mg/dl (0.2-1.3) 03/10/24 18:44
AST 20 U/L (17-59) 03/10/24 18:44
ALT 19 U/L (0-50) 03/10/24 18:44
Alkaline Phosphatase 98 U/L (38-126) 03/10/24 18:44
Total Protein 6.9 g/dl (6.3-8.2) 03/10/24 18:44
Albumin 4.3 g/dl (3.5-5.0) 03/10/24 18:44
Physical Exam
-
Gen: NAD
Abd: soft, mild tenderness, ND, non-peritoneal
--- NOTE | 2024-03-12 09:06 | W.PN.HOSP.TC ---
Today's Communication/Plan
-
see bold
Assessment / Plan
Assessment / Plan
HPI: 63y M with PMH significant for WPW, DM-II and noncompliance who presents to ED complaining of severe abdominal pain that started this afternoon.
SBO
- CT done shows suspected SBO - though no transition point is identified by CT report.
- Appreciate general surgery input, start clear liquid diet, since patient had BM today
- Continue to monitor
WPW
Newly diagnosed atrial flutter
-Appreciate cardiology input, started on heparin drip, likely can transition to Xarelto tomorrow
-Monitor on telemetry
DM-II
- Uncontrolled / noncompliant with treatment.
- Hemoglobin A1c 13.1, patient stopped taking his metformin and his glimepiride
- Patient refusing glargine 10 units at bedtime, he is willing to take glargine 5 units at bedtime�will decrease dose
Benign Hypertension
- Previously on atenolol, but patient stopped this as he felt fatigued.
- Monitor BP with adequate pain control.
DVT Prophylaxis: Heparin drip
Code Status: Full
Total time spent to see the patient on the floor, examine the patient, review data and lab results, discuss treatment plan with patient, nursing staff around 35 minutes.
Physical Exam
General: No acute distress
HEENT: Normocephalic, Atraumatic, EOMI, MMM
Respiratory: Clear to Auscultation bilaterally
Cardiac: Normal S1/S2, Regular Rate and Rhythm
GI: Soft, hypoactive bowel sounds, nontender, mildly distended
Extremities: No Clubbing, Cyanosis, or Edema
Neuro: Nonfocal/Grossly Intact
Psych: Calm, Cooperative
Derm: No Visible lesions
Anticipated Discharge: 24 - 48 hours
Subjective/Interval History
-
Date of Service: March 12, 2024
Patient had a bowel movement today. No abdominal pain, no nausea, no vomiting. No fever.
Objective Data
-
Labs:
Laboratory Results
03/11/24 03/12/24 03/12/24
23:00 05:40 12:10
APTT 51.5 H 60.0 H Pending
Vital Signs:
Vital Signs
Temp Pulse Resp BP Pulse Ox
98.4 F 92 18 138/85 96
03/12/24 07:47 03/12/24 07:47 03/12/24 07:47 03/12/24 07:47 03/12/24 07:47
I&O
03/11/24 03/12/24 03/13/24
06:59 06:59 06:59
Intake Total 1000 / 1000 3282 / 3282
Output Total 300 / 300 190 / 190
Balance 700 / 700 3092 / 3092
--- NOTE | 2024-03-12 09:33 | W.PN.CARDCBS ---
Addendum entered and electronically signed by Adriana Mendez PA-C 03/12/24 15:04:
Patient agreeable to start Xarelto 20 mg once a day. Discussed this needs to be taken with food. He was given 6 weeks of samples plus free 30-day co-pay card until insurance issues can be worked out.
Per discussion with surgical team, Dr. David, continue IV heparin until 03/13/2024 then hopefully transition to Xarelto pending resolution of SBO as pt diet is still being advanced.
Dr. Sanchez also updated via TT
Addendum entered and electronically signed by Fidel Hurtado MD 03/12/24 12:34:
I saw and examined the patient.
The TELEPHONE AD TAKER or PA's note was reviewed and I agree with the note.
Comment: General: Well developed, well nourished in NAD.
Neck: Supple, no JVD, HJR, carotids +2 B/L, no bruits bilaterally.
Heart: Non displaced PMI, irregular, no murmurs, No S3, S4, no rubs.
Lungs: Clear to auscultation bilaterally, no wheeze, rhonchi, rubs bilaterally,
normal expiratory phase.
Extremities: No clubbing, cyanosis or edema bilaterally.
Neuro: Grossly nonfocal, awake, alert and oriented x3.
He really wants to go home. Heart rate control is reasonable and will add Toprol-XL 25 mg daily. Will add either Xarelto or Eliquis depending on better program for possible free meds. Will arrange outpatient follow-up and consider cardioversion
if patient has been compliant. Stable cardiology status for discharge.
Original Note:
Today's Communication / Plan
-
Continue rate control, will add Toprol 25 mg daily
Case management working on if patient would qualify for insurance/Medicaid
Continue heparin with hopeful transition to DOAC versus Coumadin
Consider unit educator consultation
Impression / Plan
-
PCP: Garret CASTANEDA
Logistics Solution Manager: Dr. ZIGGY Smith
Impression:
Admitted with SBO 03/10/24
Newly diagnosed atrial flutter of unclear duration
Hypertrophic cardiomyopathy
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
HTN
cLBBB
Mild to mod MR by echo 05/16/22
DM 2
Depression
Hypercholesterolemia
Ongoing tobacco abuse
History of sleep apnea
Lexiscan nuclear stress test 07/19/2017: Moderate area of mildly decreased perfusion that is minimally reversible in the inferior lateral, inferior, inferior septal segments consistent with soft tissue attenuation, EF 55%, dilated left ventricle
Echo 07/19/2017:�EF 70 to 75%, severe LVH, stage I DD, LVOT gradient peak gradient 82 mmHg, moderate dilated LA, normal RA, thickened MV with moderate systolic anterior motion in the anterior leaflet and moderate eccentric posterior directed MR.
Calcified AV.� Trace AI.� Trace TR, PAP 20 to 25 mmHg
Echo 05/16/22: EF 55-60%, normal wall motion, severe conc LVH, LVOT gradient 102 mmHg at rest that increases 177 mmHg with Valsalva, stage I diastolic dysfunction, mild aortic regurgitation, mildly dilated aortic root
Echo 03/11/2024: EF 50 to 55%, LVOT 147 that increases to 229 with Valsalva. Severe concentric LVH biatrial enlargement. Mild to moderate MR. Mild to moderate AI. Moderate TR, PAP 20 to 25 mmHg
Plan:
-Presented 03/10/2024 with abdominal pain and found to have SBO
-New onset atrial flutter unknown duration, asymptomatic. Favor rate control and initiation of anticoagulation with consideration of eventual outpatient cardioversion if patient has been compliant with anticoagulation for 4 weeks.
-Previously on atenolol however due to lack of follow-up, insurance issues and fatigue patient self discontinued medication years ago. Would consider adding back low-dose beta-kristi, Toprol 25 mg daily
-Continue Heparin gtt.
-Patient does not have health insurance. Case management left message with [facility] concerning no insurance to see if patient will qualify for Medicaid awaiting response.
-He will need anticoagulation. Awaiting input from case management to check on cost of Eliquis 5 mg BID vs Xarelto. Patient can use the 1 month free card and afterwards might be eligible for patient prescription assistance. If not may need to
consider Coumadin, although compliance with INRs may be an issue
-Patient had large bowel movement this morning. No surgical intervention warranted at this time for SBO. Diet being advanced
-Patient previously prescribed glimepiride 4 mg BID and metformin 1000 mg BID, but has not taken any meds for years. HgbA1c 13.1%. Needs consult with unit educator.
-Eventual outpatient BLAS evaluation with new atrial arrhythmia.
-TSH was normal
HPI 03/11/24:
Patient came to [facility] last night with abdominal pain and is now admitted with a SBO, cardiology has been consulted for abnormal ECG. Patient has a h/o WPW and had previous slow pathway modification 25+ years ago that was only partially successful.
Patient also has a h/o HOCM. Patient was last seen in the cardiology office on 03/02/20 and has been a no-show for subsequent appointments. Patient was taking atenolol 50 mg daily at last office visit, but says he is no longer taking any daily
medications. Patient denies chest pain or palpitations. He says he had ANNA that felt like being out of shape when he was walking the board[place] at the [place] this past Monday night, but otherwise no SOB. He ate lunch at [facility] on Monday afternoon
and hours later started with abdominal pain and vomiting. He came to [facility] and was admitted with SBO. ECG showed sinus tachycardia and with his h/o WPW and HOCM cardiology was consulted. ECG and tele reviewed by me today looks like atrial flutter. No
h/o atrial flutter
Progress Note - Logistics Solution Manager
Subjective
Date of Service: March 12, 2024
Patient seen and examined. Patient resting comfortably in bed. Patient denies having abdominal pain reports he had a bowel movement this morning. Denies chest pain, shortness of breath, dizziness, lightheadedness or palpitations.
Objective
Labs:
03/11/24 05:56
03/11/24 05:56
Labs
Hgb 14.4 g/dL (13.0-18.0) 03/11/24 05:56
Hct 41.1 % (39.0-52.0) 03/11/24 05:56
Plt Count 233 10^3/uL (130-400) 03/11/24 05:56
APTT 60.0 Sec (23.4-35.0) H 03/12/24 05:40
Sodium 136 mmol/L (135-145) 03/11/24 05:56
Potassium 4.5 mmol/L (3.5-5.1) 03/11/24 05:56
BUN 19 mg/dl (9-20) 03/11/24 05:56
Creatinine 0.6 mg/dL (0.7-1.3) L 03/11/24 05:56
Glucose 250 mg/dl (70-99) H 03/11/24 05:56
Troponins
03/11/24 03/11/24 03/12/24
13:15 15:56 05:40
Troponin I 0.018 0.017 0.021
Vital Signs and I&O:
Vital Signs
Temp Pulse Resp BP Pulse Ox
98.4 F 92 18 138/85 96
03/12/24 07:47 03/12/24 07:47 03/12/24 07:47 03/12/24 07:47 03/12/24 07:47
Vital Signs
Temp Pulse Resp BP Pulse Ox
98.4 F 92 18 138/85 96
03/12/24 07:47 03/12/24 07:47 03/12/24 07:47 03/12/24 07:47 03/12/24 07:47
Intake & Output
03/10/24 03/11/24 03/12/24 03/13/24
06:59 06:59 06:59 06:59
Intake Total 1000 / 1000 3282 / 3282
Output Total 300 / 300 190 / 190
Balance 700 / 700 3092 / 3092
Physical Exam
Physical Exam
GEN: No distress, awake, Ox3
HEENT: supple, anicteric, mmm
LUNGS: CTA, no wheezes/rales
CV: Re irregularly irregular, S1/S2, 1/6 syst murmur, no rubs or gallops
ABD: soft, BS+, NT/ND
EXT: No edema, clubbing or cyanosis
NEURO: Gross non-focal
SKIN: No rash, warm, dry, pink
[2024-03-12 11:12] LABS: Glucose - Point of Care 136 mg/dl (70-99)
[2024-03-12] MEDS: NOVOLOG FLEXPEN-MODERATE RESISTANCE SC (11:15)
[2024-03-12 11:23] VITALS: BP 137/82
[2024-03-12 12:18] LABS: APTT 77.1 Sec (23.4-35.0)
[2024-03-12] MEDS: TOPROL XL 25 MG PO (12:27)
[2024-03-12 15:32] VITALS: BP 155/80
[2024-03-12] MEDS: NSS IV (15:51)
[2024-03-12 16:37] LABS: Glucose - Point of Care 167 mg/dl (70-99)
[2024-03-12 18:37] LABS: APTT 107.8 Sec (23.4-35.0)
[2024-03-12 19:40] VITALS: BP 122/73
[2024-03-12 21:17] LABS: Glucose - Point of Care 190 mg/dl (70-99)
[2024-03-12] MEDS: LANTUS 0.0500000000000000028 UNITS SC (21:21)
[2024-03-12 23:42] VITALS: BP 105/62
[2024-03-13 03:42] VITALS: BP 118/59
--- NOTE | 2024-03-13 05:28 | DOWNTIME ---
There was a [employer] Client Derrick Hand Downtime on 03/13/2024 from 0100 to 03/13/2024 at 0337. Downtime documentation of patient's care, including medication administrations, has been reconciled in the electronic record per guidelines. Refer to the
patient's paper chart under the miscellaneous tab to see printed paper medication records and downtime forms.
[2024-03-13 06:00] VITALS: BMI 26.8
[2024-03-13 06:32] LABS: Hemoglobin 13.7 g/dL (13.0-18.0); Mean Corp Hgb Conc. 35.1 g/dL (33.0-37.0); Mean Corpuscular Hgb 30.1 pg (27.0-31.0); Mean Corpuscular Volume 85.7 fL (80.0-94.0); Mean Platelet Volume 10.8 fL (7.4-10.4); Platelet Count 212 10^3/uL (130-400); Red Blood Cell Count 4.55 10^6/uL (4.70-6.10); Red Cell Dist. Width 13.1 % (11.5-14.5); White Blood Cell Count 5.8 10^3/uL (4.8-10.8)
[2024-03-13 07:03] LABS: APTT > 200 Sec (23.4-35.0)
[2024-03-13 07:04] VITALS: BP 147/75
[2024-03-13 07:47] LABS: Glucose - Point of Care 140 mg/dl (70-99)
[2024-03-13] MEDS: TOPROL XL 25 MG PO (07:52)
[2024-03-13] MEDS: NOVOLOG FLEXPEN-MODERATE RESISTANCE SC ×2 (07:52→10:57)
[2024-03-13] MEDS: NSS (PRESERVATIVE FREE) 10 ML IV (07:53)
[2024-03-13] MEDS: PROTONIX IV 40 MG IV (07:53)
[2024-03-13 08:04] LABS: Blood Urea Nitrogen 11 mg/dl (9-20); Calcium 8.3 mg/dl (8.4-10.2); Carbon Dioxide 21 mmol/L (22-30); Chloride 112 mmol/L (98-107); Estimated Creatinine Clearance > 125 ml/min; Glucose 114 mg/dl (70-99); Magnesium 1.6 mg/dl (1.6-2.3); Phosphorus 3.4 mg/dl (2.5-4.5); Potassium 3.4 mmol/L (3.5-5.1); Sodium 139 mmol/L (135-145); eGFR > 60.00
--- NOTE | 2024-03-13 08:49 | W.PN.CARDCBS ---
Addendum entered and electronically signed by Karthik Grant MD 03/13/24 10:43:
I saw and examined the patient.
The Return Agent Airport's note was reviewed and I agree with the note.
Comment: Briefly, 63-year-old man past medical history of hypertrophic cardiomyopathy who was admitted with SBO found to have new diagnosis of atrial flutter
Ventricular rates are well-controlled on p.o. metoprolol
Started on Xarelto for cardioembolic prophylaxis
Outpatient cardiology follow-up arranged
Stable cardiac status, we will sign off
Original Note:
Today's Communication / Plan
-
Xarelto samples and sample card provided
He can fill Toprol XL Rx at [facility]
Cardiology f/u arranged
Impression / Plan
-
PCP: Garret CASTANEDA
Machine Marker: Dr. ZIGGY Smith
Impression:
Admitted with SBO 03/10/24
Newly diagnosed atrial flutter of unclear duration
Hypertrophic cardiomyopathy
Kelsp-Rxvcuwyhu-Dawfh syndrome status post attempted ablation, accessory pathway currently conduction intermittently only
HTN
cLBBB
Mild to mod MR by echo 05/16/22
DM 2
Depression
Hypercholesterolemia
Ongoing tobacco abuse
History of sleep apnea
Lexiscan nuclear stress test 07/19/2017: Moderate area of mildly decreased perfusion that is minimally reversible in the inferior lateral, inferior, inferior septal segments consistent with soft tissue attenuation, EF 55%, dilated left ventricle
Echo 07/19/2017:�EF 70 to 75%, severe LVH, stage I DD, LVOT gradient peak gradient 82 mmHg, moderate dilated LA, normal RA, thickened MV with moderate systolic anterior motion in the anterior leaflet and moderate eccentric posterior directed MR.
Calcified AV.� Trace AI.� Trace TR, PAP 20 to 25 mmHg
Echo 05/16/22: EF 55-60%, normal wall motion, severe conc LVH, LVOT gradient 102 mmHg at rest that increases 177 mmHg with Valsalva, stage I diastolic dysfunction, mild aortic regurgitation, mildly dilated aortic root
Echo 03/11/2024: EF 50 to 55%, LVOT 147 that increases to 229 with Valsalva. Severe concentric LVH biatrial enlargement. Mild to moderate MR. Mild to moderate AI. Moderate TR, PAP 20 to 25 mmHg
Plan:
-SBO has resolved and patient is hoping for discharge 03/13/24.
-Gave patient a note to return to work at regular duty 03/14/24 from a cardiac perspective.
-Newly diagnosed atrial flutter present since admission. HR controlled and patient overall asymptomatic. Patient has no insurance and no real plans to obtain insurance. Plan is for rate control. Samples of Xarelto 20 mg daily given to patient, 6
weeks worth of sample bottles plus an additional 30 day supply card that he can submit to a pharmacy for additional free samples. Beyond that it isn't clear if he will qualify for patient prescription assistance.
-Consideration of eventual outpatient cardioversion if patient has been compliant with anticoagulation for 4 weeks, but if he doesn't have outpatient medical insurance then he won't be able to have elective outpatient CV.
-New to Toprol XL 25 mg daily this admission and he can fill this at [facility]
-Patient previously prescribed glimepiride 4 mg BID and metformin 1000 mg BID, but has not taken any meds for years. HgbA1c 13.1%.
-Eventual outpatient BLAS evaluation with new atrial arrhythmia, but not sure how he can complete outpatient testing without insurance.
-TSH was normal
-Cardiology will be able to see patient once in the office at no cost to patient due to lack of insurance, but beyond that he will need to pay walsh which he says he isn't interested in doing
HPI 03/11/24:
Patient came to [facility] last night with abdominal pain and is now admitted with a SBO, cardiology has been consulted for abnormal ECG. Patient has a h/o WPW and had previous slow pathway modification 25+ years ago that was only partially successful.
Patient also has a h/o HOCM. Patient was last seen in the cardiology office on 03/02/20 and has been a no-show for subsequent appointments. Patient was taking atenolol 50 mg daily at last office visit, but says he is no longer taking any daily
medications. Patient denies chest pain or palpitations. He says he had ANNA that felt like being out of shape when he was walking the boardwalk at the [place] this past Monday night, but otherwise no SOB. He ate lunch at [facility] on Monday afternoon
and hours later started with abdominal pain and vomiting. He came to [facility] and was admitted with SBO. ECG showed sinus tachycardia and with his h/o WPW and HOCM cardiology was consulted. ECG and tele reviewed by me today looks like atrial flutter. No
h/o atrial flutter
Progress Note - Machine Marker
Subjective
Date of Service: March 13, 2024
He feels well and wants to go home
Objective
Labs:
03/13/24 06:23
03/13/24 06:24
Labs
Hgb 13.7 g/dL (13.0-18.0) 03/13/24 06:23
Hct 39.0 % (39.0-52.0) 03/13/24 06:23
Plt Count 212 10^3/uL (130-400) 03/13/24 06:23
APTT > 200 Sec (23.4-35.0) H* 03/13/24 06:23
Sodium 139 mmol/L (135-145) 03/13/24 06:24
Potassium 3.4 mmol/L (3.5-5.1) L 03/13/24 06:24
BUN 11 mg/dl (9-20) 03/13/24 06:24
Creatinine 0.5 mg/dL (0.7-1.3) L 03/13/24 06:24
Glucose 114 mg/dl (70-99) H 03/13/24 06:24
Troponins
03/11/24 03/11/24 03/12/24
13:15 15:56 05:40
Troponin I 0.018 0.017 0.021
Vital Signs and I&O:
Vital Signs
Temp Pulse Resp BP Pulse Ox
97.5 F 62 18 147/75 99
03/13/24 07:04 03/13/24 07:04 03/13/24 07:04 03/13/24 07:04 03/13/24 07:04
Vital Signs
Temp Pulse Resp BP Pulse Ox
97.5 F 62 18 147/75 99
03/13/24 07:04 03/13/24 07:04 03/13/24 07:04 03/13/24 07:04 03/13/24 07:04
Intake & Output
03/11/24 03/12/24 03/13/24 03/14/24
06:59 06:59 06:59 06:59
Intake Total 1000 / 1000 3282 / 3282 3326 / 3326
Output Total 300 / 300 190 / 190
Balance 700 / 700 3092 / 3092 3326 / 3326
Physical Exam
Physical Exam
GEN: NAD. AAOx3
HEENT: MMM
LUNGS: No audible wheeze
CV: Atrial flutter on tele
ABD: ND
EXT: No edema B/L
NEURO: Gross non-focal
SKIN: No rash
--- NOTE | 2024-03-13 09:04 | W.PN.HOSP.TC ---
Today's Communication/Plan
-
Discharge if tolerating solids
Assessment / Plan
Assessment / Plan
HPI: 63y M with PMH significant for WPW, DM-II and noncompliance who presents to ED complaining of severe abdominal pain that started this afternoon.
SBO
- CT done shows suspected SBO - though no transition point is identified by CT report.
- Appreciate general surgery input, advance to solids, discharge if tolerating solids
- Continue to monitor
WPW
Newly diagnosed atrial flutter
-Appreciate cardiology input, can transition to Xarelto today, status post IV heparin drip
-Monitor on telemetry
DM-II
- Uncontrolled / noncompliant with treatment.
- Hemoglobin A1c 13.1, patient stopped taking his metformin and his glimepiride
- Patient refusing glargine 10 units at bedtime, he is willing to take glargine 5 units at bedtime�prescription sent
Benign Hypertension
- Previously on atenolol, but patient stopped this as he felt fatigued.
- Monitor BP with adequate pain control.
Chronic pancreatitis
� Monitor
DVT Prophylaxis: Xarelto
Code Status: Full
Physical Exam
General: No acute distress
HEENT: Normocephalic, Atraumatic, EOMI, MMM
Respiratory: Clear to Auscultation bilaterally
Cardiac: Normal S1/S2, Regular Rate and Rhythm
GI: Soft, hypoactive bowel sounds, nontender, mildly distended
Extremities: No Clubbing, Cyanosis, or Edema
Neuro: Nonfocal/Grossly Intact
Psych: Calm, Cooperative
Derm: No Visible lesions
Anticipated Discharge: Today
Subjective/Interval History
-
Date of Service: March 13, 2024
Patient continues to have multiple bowel movements. He tolerated his clear liquid diet. No chest pain, shortness of breath, palpitations.
Objective Data
-
Labs:
Laboratory Results
03/13/24 03/13/24
06:23 06:24
WBC 5.8
Hgb 13.7
Hct 39.0
Plt Count 212
APTT > 200 H*
Sodium 139
Potassium 3.4 L
Chloride 112 H
Carbon Dioxide 21 L
BUN 11
Creatinine 0.5 L
Glucose 114 H
Calcium 8.3 L
Vital Signs:
Vital Signs
Temp Pulse Resp BP Pulse Ox
97.5 F 62 18 147/75 99
03/13/24 07:04 03/13/24 07:04 03/13/24 07:04 03/13/24 07:04 03/13/24 07:04
I&O
03/12/24 03/13/24 03/14/24
06:59 06:59 06:59
Intake Total 3282 / 3282 3326 / 3326
Output Total 190 / 190
Balance 3092 / 3092 3326 / 3326
[2024-03-13] MEDS: KCL 20 MEQ PO (09:21)
[2024-03-13 11:06] LABS: Glucose - Point of Care 146 mg/dl (70-99)
--- NOTE | 2024-03-13 11:12 | W.PN.GS2 ---
Today's Communication / Plan
-
Adv to LRD >> DC when tolerating
Assessment / Plan
-
Patient is a 63 yo M p/w pSBO versus ileus
Some clinical improvement with passage of flatus. Continues to have crampy lower abdominal pain with no passage of a BM. Likely slow clinical improvement. Plan for UGI with SBFT both for diagnostic and therapeutic purposes. Dietary advancement
pending these findings. All questions answered.
-- Adv to LRD
-- OOB/ambulate, correct lytes, minimize narcotics
-- GS will sign off, OK for DC when tolerating LRD, pls call with ?s
Subjective Data
-
Date of Service: March 13, 2024
No com,plaints, denies n/v, passing flatus, radha fulls
Objective Data
-
Intake and Output
03/12/24 03/13/24 03/14/24
06:59 06:59 06:59
Intake Total 3282 / 3282 3326 / 3326
Output Total 190 / 190
Balance 3092 / 3092 3326 / 3326
Intake:
Oral fluids 0 / 0 1680 / 1680
IV fluids (Total) 3000 / 3000 1250 / 1250
IV piggybacks 282 / 282 396 / 396
Output:
Urine, Voided 190 / 190
Other:
Number of approximated MODERATE 1 2
amounts of urine
Vital Signs
Temp Pulse Resp BP Pulse Ox
97.5 F 62 18 147/75 99
03/13/24 07:04 03/13/24 07:04 03/13/24 07:04 03/13/24 07:04 03/13/24 08:00
Lab Results
03/13/24 06:23
03/13/24 06:24
Calcium 8.3 mg/dl (8.4-10.2) L 03/13/24 06:24
Phosphorus 3.4 mg/dl (2.5-4.5) 03/13/24 06:24
Magnesium 1.6 mg/dl (1.6-2.3) 03/13/24 06:24
Total Bilirubin 0.7 mg/dl (0.2-1.3) 03/10/24 18:44
AST 20 U/L (17-59) 03/10/24 18:44
ALT 19 U/L (0-50) 03/10/24 18:44
Alkaline Phosphatase 98 U/L (38-126) 03/10/24 18:44
Total Protein 6.9 g/dl (6.3-8.2) 03/10/24 18:44
Albumin 4.3 g/dl (3.5-5.0) 03/10/24 18:44
Physical Exam
-
Gen: NAD
Abd: soft, nt, nd
[2024-03-13 11:22] VITALS: BP 153/89
--- NOTE | 2024-03-13 11:50 | W.DCSUMMARY ---
Discharge Summary
Discharge Data
Date of Admission: 03/10/24
Date of Discharge: 03/13/24
-
Pending Results: No
Hospital Course
Discharge diagnosis:
Acute partial small bowel obstruction
New onset atrial flutter
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
History of hypertrophic cardiomyopathy
Uncontrolled type 2 diabetes
Cigarette nicotine dependency
Benign essential hypertension
Depression
Hyperlipidemia
Consults: Cardiology, general surgery
CT abd/pelvis:
Small bowel obstruction. Uncertain etiology. No evidence of wall thickening or pneumatosis. No evidence of perforation. No abscess.
Progressive coarse pancreatic calcification, most likely reflecting changes of chronic pancreatitis. No acute peripancreatic inflammatory changes.
Diverticulosis without acute diverticulitis.
Mild to moderate constipation.
Echo:
Left ventricle is small in size. Severe concentric left ventricular
hypertrophy. Normal systolic function. No regional wall motion abnormalities
are seen. LV ejection fraction is 50-55% by Downs's method of discs. There is
an LVOT gradient of 147 mmHg that increases to 229 mmHg with Valsalva.
Biatrial enlargement
Thickened mitral valve leaflets with chordal systolic anterior motion of the
anterior mitral valve leaflet. Mild to moderate mitral regurgitation.
Mild to moderate aortic regurgitation.
Mild tricuspid regurgitation. Estimated pulmonary artery pressure of 20-25 mmHg.
Compared to the previous echo from Apr 2022, AR was noted to be mild and the
LVOT gradient is slightly higher, no other significant change.
Hospital course:
63-year-old male with a past medical history of HOCM, WPW syndrome, hypertension, hyperlipidemia, cigarette nicotine dependency, and type 2 diabetes presented with abdominal pain, was found to have an acute partial small bowel obstruction.
Patient was seen in conjunction with general surgery. He was treated conservatively with bowel rest, IV fluids. He did not require an NG tube. After several days, he passed gas and stool. He tolerated a clear liquid diet, and then was advanced.
He then tolerated solids.
Patient's hospital course was complicated by new onset atrial flutter. Patient was seen in conjunction with cardiology. He was treated with an IV heparin drip while on bowel rest. He was then converted to Xarelto. He was also started on
metoprolol succinate 25 mg daily. His heart rate is controlled.
Patient has uncontrolled type 2 diabetes, with a hemoglobin A1c of 13.1. Patient self discontinued his metformin and glimepiride. He is agreeable to taking Lantus. He states he has it at home. He is willing to take Lantus 5 units at bedtime,
prescriptions were sent.
Patient's multiple medical conditions have been optimized. He is medically stable for discharge. He needs to follow-up with cardiology as directed, as well as his primary care doctor in 1 week.
Disposition: Home self-care
Discharge planning: Required 38 minutes
Discharge Plan
-
Patient Disposition: Home (Routine Discharge)
Discharge Diagnosis/Procedures: Small bowel obstruction, new onset atrial flutter, type 2 diabetes
Condition: Good
Diet: Diabetic, Carb Controlled
Activity: As tolerated
Driving Restrictions: As prior to admission
Activity Restrictions/Additional Instructions:
Please follow-up with your primary care doctor in 1 week, and cardiology as scheduled.
Referrals:
Giselle Pfeiffer PA-C [Specified Professional Personl] - 04/08/24 8:00 am (You have cardiology follow up with Giselle Pfeiffer PA-C April 08 at 8 [address] in [address] in [address] [facility] which is located behind the hospital. If you are unable to make this
appointment please call [phone] to reschedule)
Dariela Combs CRNP [Non-Admitting Privileges] - in one week
UNKNOWN - PT DOES,NOT KNOW [Family Provider] -
Additional Discharge Medication Instructions: -You can use the 'free 30 day' card for your first prescription fill of Xarelto, you also have 6 weeks worth of samples in bottles given to you prior to discharge that you can use. Beyond that you might
qualify for patient prescription assistance through the Xarelto wind turbine mechanical engineer. You can apply with the help of 's office.
Prescriptions:
New
metoprolol succinate 25 mg Tablet Extended Release 24 Hr
25 mg PO DAILY Qty: 30 11RF
Xarelto 20 mg tablet
20 mg PO DAILY Qty: 30 11RF
insulin glargine [Lantus U-100 Insulin] 100 unit/mL solution
5 unit SC QPM Qty: 10 0RF
(DME) insulin syringe-needle U-100 [Insulin Syringe] 0.5 mL 29 gauge x 1/2' syringe
See Rx Instructions .Route Qty: 100 0RF
Rx Instructions:
As directed
Discharge Orders:
Discharge Patient (As Directed); Ordered 03/13/24
Ordered By: Norberto Sanchez
Discharge Date and Time
Discharge Date/Time: 03/13/24 13:11
Print Language: SERBIAN
[2024-03-13] MEDS: XARELTO 20 MG PO (12:21)
--- NOTE | 2024-03-13 13:35 | PN.CDI ---
CDI
- -
CDI:
Physician Documentation Request
Admit Date: 03/10/24 21:38
Dear Doctor Do,
Please review the following and provide your response in the progress notes.
Clinical Indicators:
Pt admitted with Small bowel obstruction.
The diagnosis of chronic pancreatitis was included in the signed CT Abd/Pelvis on
03/10 CT Abd/Pelvis: 'Progressive coarse pancreatic calcification, most likely reflecting changes of chronic pancreatitis. No acute peripancreatic inflammatory changes.' Laboratory Tests
03/10/24
18:44
Total Bilirubin 0.7
AST 20
ALT 19
Alkaline Phosphatase 98
Lipase 85
.
Additional clinical indicators in the chart include:
Please indicate in your progress notes if you are in agreement that the above diagnosis is valid for this patient:
- Chronic Pancreatitis is a valid diagnosis (Please include it in your progress notes)
- Chronic Pancreatitis s not a valid diagnosis for this patient
- Chronic Pancreatitis is not yet confirmed but remains a suspected condition
- Other
- Unable to determine
Use of terms such as suspected, likely, concern for, or probable are acceptable for a diagnosis that is being evaluated, monitored or treated as if it exists and can be coded in the inpatient setting, when documented at the time of discharge.
Thank you,
Beba Jerome RN, BSN
CDI Specialist
Available via [facility] [employer]
Please use your independent medical judgment in providing your response.
--- NOTE | 2024-03-13 15:27 | CM ---
MD entered order for discharge.
[facility]SI saw pt .
Family drove him home.
PLAN Home no needs
== END 2024-03-13 13:11 | disposition home or self-care (01) | DRG 389 ==
LOC: 4 EAST ACU 21:38
PROVIDERS: Physician Assistant Medical; ADMITTING PHYSICIAN Hospitalist; ATTENDING PHYSICIAN Family Medicine; CONSULT PHYSICIAN Surgery; EMERGENCY PHYSICIAN Emergency Medicine; OTHER PHYSICIAN Internal Medicine Cardiovascular Disease
DX: K56.600 Partial intestinal obstruction, unspecified as to cause (principal); I42.1 Obstructive hypertrophic cardiomyopathy; I48.92 Unspecified atrial flutter; K86.1 Other chronic pancreatitis; E11.9 Type 2 diabetes mellitus without complications; I10 Essential (primary) hypertension; F32.A Depression, unspecified; K57.30 Diverticulosis of large intestine without perforation or abscess without bleeding; I45.6 Pre-excitation syndrome; K59.09 Other constipation; T44.7X6A Underdosing of beta-adrenoreceptor antagonists, initial encounter; T38.3X6A Underdosing of insulin and oral hypoglycemic [antidiabetic] drugs, initial encounter; T46.6X6A Underdosing of antihyperlipidemic and antiarteriosclerotic drugs, initial encounter; Z91.128 Patient's intentional underdosing of medication regimen for other reason; I44.7 Left bundle-branch block, unspecified; I25.10 Atherosclerotic heart disease of native coronary artery without angina pectoris; G47.33 Obstructive sleep apnea (adult) (pediatric); G43.909 Migraine, unspecified, not intractable, without status migrainosus; F17.210 Nicotine dependence, cigarettes, uncomplicated; E78.00 Pure hypercholesterolemia, unspecified; Z96.641 Presence of right artificial hip joint; Z88.5 Allergy status to narcotic agent
CPT/HCPCS: 74177; 80048; 80053; 82962; 83036; 83690; 83735; 84100; 84443; 84484; 85025; 85027; 85730; 93005; 93306; 96361; 96374; 96375; 99285; 99406; Q9967

== ENCOUNTER 2025-03-30 01:31 | Inpatient (IN) | payer OTHER, SELFPAY ==
[2025-03-29 19:53] VITALS: BMI 23.5
[2025-03-29 19:56] VITALS: BP 128/85
[2025-03-29 20:12] LABS: Hematocrit 42.7 % (39.0-52.0); Hemoglobin 14.9 g/dL (13.0-18.0); Mean Corp Hgb Conc. 34.9 g/dL (33.0-37.0); Mean Corpuscular Volume 88.8 fL (80.0-94.0); Nucleated Red Blood Cells % 0 % (-); Platelet Count 262 10^3/uL (130-400); Red Cell Dist. Width 12.7 % (11.5-14.5)
[2025-03-29 20:26] LABS: ALT (SGPT) 21 U/L (0-50); AST (SGOT) 20 U/L (17-59); Albumin 3.6 g/dl (3.5-5.0); Alkaline Phosphatase 104 U/L (38-126); Blood Urea Nitrogen 14 mg/dl (9-20); Calcium 9.6 mg/dl (8.4-10.2); Carbon Dioxide 28 mmol/L (22-30); Chloride 98 mmol/L (98-107); Potassium 4.9 mmol/L (3.5-5.1); Sodium 129 mmol/L (135-145); Total Protein 5.9 g/dl (6.3-8.2); eGFR > 60.00
[2025-03-29 20:38] LABS: Glucose 712 mg/dl (70-99)
[2025-03-29 21:05] VITALS: BP 97/75
[2025-03-29 21:25] VITALS: BP 120/78
[2025-03-29] MEDS: NSS 1000 IV (21:44)
[2025-03-29 22:00] VITALS: BP 122/80
[2025-03-29 22:01] LABS: Venous Blood Gas B.E. 0.5 mmol/L (-4 to +4); Venous Blood Gas O2 Sat % 98.4 %
[2025-03-29 22:45] LABS: Glucose - Point of Care > 600 mg/dl (70-99)
--- NOTE | 2025-03-29 22:50 | ED.GENMED ---
History of Present Illness
General
Chief Complaint: Urinary Symptoms
Time Seen by Provider: 03/29/25 21:18
History of Present Illness
History of Present Illness:
64-year-old male with history of WPW and diabetes on insulin, however notes that he has been noncompliant with his insulin for years, secondary to insurance reasons, presenting for incontinence of urine. Patient in the past few days he has been
urinating on himself secondary to urgency, cannot make it to the bathroom. Also notes increased thirst. Patient does not check his sugar. Denies any back pain. Denies any chest pain. Denies any abdominal pain. Denies any burning with
urination. Does note some dizziness and generalized weakness, which has also been ongoing for several days. Denies any fever. Denies additional acute medical complaints
Past History
Past History
ED Past Medical History: Arrthythmia (wpw), CAD, HTN, Hypercholesterolemia, NIDDM and Other (HOCM, WPW, LBBB, MR, BLAS, Migraines, )
ED Past Surgical History: Cardiac (ablation) and Orthopedic (Right hip replacement, Right hand surgery)
Social History
Tobacco: Smoker
Alcohol: None
Drug: None
Personal:
Living: with family
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
Family History
Family History: Other (Noncontributory)
Phy Exam
Physical Exam
Physical Exam:
General: Dry mucous membranes
HEENT: protecting airway
Neck: appears supple
CV: Normal heart rate, regular rhythm
Resp: No accessory muscle use, no increased work of breathing, lungs clear to auscultation bilaterally
Abd: Soft and non-distended, no tenderness to palpation
Extremities: No deformities, no swelling, no erythema. No tenderness to the back
Neuro: alert, no focal neurologic deficit
: deferred
Rectal: deferred
Psych: Normal affect
Skin: Intact
Course
Orders/Labs/Results
Orders:
Orders
03/29/25 20:04
B-Hydroxybutyrate Urgent
Comment: ADD ON
Complete Blood Count/With Diff Urgent
Comprehensive Metabolic Panel Urgent
03/29/25 21:12
Urinalysis Reflex To Culture Urgent
Date Specimen was Collected: 03/29/25
Time Specimen was Collected: 22:47
03/29/25 21:38
0.9% Sodium Chloride 1000 ml [Nss] 1,000 ml IV BOLUS
03/29/25 21:56
Venous Blood Gas Urgent
%Oxygen/Room Air: 21
03/29/25 22:30
Insulin Human Regular [Novolin R] 10 units SC NOW STA
03/29/25 22:48
Glucose Stat
0.9% Sodium Chloride 500 ml [Nss] 500 ml IV BOLUS
Abnormal Lab Results
03/29/25 03/29/25 03/29/25
20:04 21:56 22:44
MPV 10.9 H fL
(7.4-10.4)
VBG pO2 130 H mmHg
(30-50)
Sodium 129 L mmol/L
(135-145)
Creatinine 0.6 L mg/dL
(0.7-1.3)
Glucose 712 H* mg/dl
(70-99)
Total Protein 5.9 L g/dl
(6.3-8.2)
POC Glucose > 600 H* mg/dl
(70-99)
03/29/25 20:04
Vital Signs
Initial and Last Documented VS:
Initial Vital Signs
Temp Pulse Resp BP Pulse Ox
98.0 F 121 16 128/85 100
03/29/25 19:56 03/29/25 19:56 03/29/25 19:56 03/29/25 19:56 03/29/25 19:56
Last Documented Vital Signs
Temp Pulse Resp BP Pulse Ox
98.0 F 118 25 122/80 97
03/29/25 19:56 03/29/25 22:00 03/29/25 22:00 03/29/25 22:00 03/29/25 22:00
MDM/Problems Addressed
MDM/Problems Addressed:
64-year-old male with history of untreated diabetes presenting for polyuria and polydipsia. Vital signs on arrival significant for tachycardia.
On exam, patient is very dry in appearance, dry mucous membranes, tachycardic. He is otherwise afebrile, nontoxic. Glucose on arrival are than 700. Suspect patient's presenting urinary symptoms are from profound hyperglycemia with consideration
of DKA. Suspect that hyperglycemia secondary to medication noncompliance. Patient notes that he has been 'incontinent ', however on further questioning, reports that he can feel himself urinating, however has difficulty making it to the bathroom.
Without any present concern for spinal compromise as etiology of urinary symptoms. Plan for laboratory analysis and IV fluids.
22:50 - Patient without anion gap. Normal beta hydroxybutyrate. Glucose rechecked after a liter of fluids, still reading high. Will administer insulin, continue IV fluids and plan for admission
*Pulse Oximetry
SaO2: 97
Oxygen Mode of Delivery: Room air
Patient hypoxic: no
*Critical Care Note
Total Time (30-74mins, 75-104mins- exclusive of procedures): Not Applicable
ED Attending Note
-
Portions of this chart may have been created with voice recognition software.� Occasional wrong word or��sound alike� substitutions may have occurred due to the inherent limitations of voice recognition software.
Discharge Plan
Departure
Prescriptions:
No Action
metoprolol succinate 25 mg Tablet Extended Release 24 Hr
25 mg PO DAILY Qty: 30 11RF
Xarelto 20 mg tablet
20 mg PO DAILY Qty: 30 11RF
insulin glargine [Lantus U-100 Insulin] 100 unit/mL solution
5 unit SC QPM Qty: 10 0RF
(DME) insulin syringe-needle U-100 [Insulin Syringe] 0.5 mL 29 gauge x 1/2' syringe
See Rx Instructions .Route Qty: 100 0RF
Rx Instructions:
As directed
Referrals:
NONE,* [Family Provider, Internal Medicine]
Interventions
Interventions:
*Risk Screen - Suicide Last Done: 03/29/25 19:56
*General Assessment Last Done: 03/29/25 19:56
*Neglect/Abuse Screening Last Done: 03/29/25 21:00
*ED- Fall Risk Assessment Last Done: 03/29/25 21:00
*ED COVID-19 Vaccine History Last Done: 03/29/25 21:00
ED-Male Genitourinary Assessment Last Done: 03/29/25 21:59
Discharge Date and Time
Print Language: AMHARIC
[2025-03-29] MEDS: NOVOLIN R 10 UNITS SC (22:55)
[2025-03-29] MEDS: NSS 500 IV (22:55)
[2025-03-29 23:00] VITALS: BP 108/82
[2025-03-29 23:02] LABS: Urine Character Clear (Clear)
[2025-03-29 23:14] LABS: Urine Red Blood Cell 0-2 /HPF (0-2); Urine White Cell 0-2 /HPF (0-5)
[2025-03-29 23:15] LABS: Glucose 553 mg/dl (70-99)
[2025-03-29] MEDS: NOVOLIN R INSULIN INFUSION 100 IV (23:28)
[2025-03-30] VITALS (14 sets, daily range): BP systolic 84–127; BP diastolic 56–89; BMI 23.1
--- NOTE | 2025-03-30 00:14 | HPS.HSE ---
Family Physician
-
Family Physician: * NONE
Chief Complaint
-
urinary incontinence
History of Present Illness
Mr. Zana Ford is a 64 yo man with hx CAD, essential HTN, HLD, WPW s/p ablation, IDDM with medication non-compliance (hasn't used insulin for years 2/2 insurance reasons) presents to the ER with urinary incontinence and increased thirst.
Patient has been off of insulin for years. He currently doesn't take any medications. He reports that over past several weeks he has been urinating more and yesterday couldn't make it to the bathroom.
No recent fevers/chills. No chest pain or shortness of breath. No nausea/vomiting. No LE swelling. No rash.
Medical History
Past Medical History
Past Medical History: Reports Other (CAD, essential HTN, HLD, WPW s/p ablation, IDDM with medication non-compliance)
Past Surgical History: Reports Cardiac (ablation) and Orthopedic
Social History
Tobacco: Smoker
Alcohol: None
Family History
Family History: Not pertinent
Allergies / Home Medications
Allergies reflects when Allergies were last updated in [facility].
Home Medications with original date entered in [facility]
Allergy/Medication List:
*patient reports not taking any medications
Review of Systems
-
History Source: Patient
A 12 point ROS was completed and negative except as noted: Yes
Physical Exam
Vital Signs
Vital Signs
Temp Pulse Resp BP Pulse Ox
98.0 F 117 19 108/82 97
03/29/25 19:56 03/29/25 23:15 03/29/25 23:15 03/29/25 23:00 03/29/25 23:15
Physical Exam
General: No Apparent Distress
Respiratory: Clear; No Wheezes
Cardiac: S1/S2 and Regular Rhythm
GI: Soft and Non Tender
Musculoskeletal: No Edema
Skin: Warm and Dry; No Rash
Neuro: AO x 3
Psych: Calm
Laboratory Results
-
03/29/25 20:04
03/29/25 22:53
Laboratory Results
Total Bilirubin 0.6 mg/dl (0.2-1.3) 03/29/25 20:04
AST 20 U/L (17-59) 03/29/25 20:04
ALT 21 U/L (0-50) 03/29/25 20:04
Alkaline Phosphatase 104 U/L (38-126) 03/29/25 20:04
Data Reviewed
-
Diagnostic Radiology: Report Reviewed by me
Lab Data: Labs Reviewed by me
Impression/Plan
-
Mr. Zana Ford is a 64 yo man with hx CAD, essential HTN, HLD, WPW s/p ablation, IDDM with medication non-compliance (hasn't used insulin for years 2/2 insurance reasons) presents to the ER with urinary incontinence and increased thirst.
Triage VS: T 98, P 121, RR 16, BP 128/85, SpO2 100%
LABS: WBC 6.7, Hg 14.9, PLT 262, Na 129 (corrected 139), K+ 4.9, CO2 28, BUN 14, Cr 0.6, Glucose 712, liver enzymes WNL
UA with 4+ glucose, 0-2 WBC
MAR: regular insulin 10 units followed by IV insulin gtt, 1.5L
Hyperglycemia with glucose 712 on admit
DM, medication non-compliance
-insulin gtt started in the ER given degree of hyperglycemia. Patient is not acidotic or confused
-admit to IMU
-additional 500cc x 1 now (total 2)
-K 4.9; will start running IVF with 20MeQ K
-BMP q 4 hours to monitor K on insulin
-when glucose < 250 then OK to start diet and transition to subQ insulin
-DM PRIZE COORDINATOR consult, DM educator consult
-CM consult to help with insurance coverage of insulin
Sinus tachycardia
-in setting of dehydration and elevated glucose levels
-obtain EKG
-additional IVF now, monitor on telemetry
Hx CAD
Essential HTN
-patient does not take any medications
WPW s/p ablation
DVT Ppx Lovenox subQ
FULL CODE
76 minute spent on patient care
[2025-03-30 00:34] LABS: Glucose - Point of Care 416 mg/dl (70-99)
[2025-03-30] MEDS: NSS 500 IV (01:09)
[2025-03-30 01:20] LABS: Potassium 3.6 mmol/L (3.5-5.1)
[2025-03-30 01:23] LABS: Blood Urea Nitrogen 14 mg/dl (9-20); Calcium 8.9 mg/dl (8.4-10.2); Carbon Dioxide 24 mmol/L (22-30); Chloride 108 mmol/L (98-107); Estimated Creatinine Clearance 124 ml/min; Glucose 366 mg/dl (70-99); Sodium 134 mmol/L (135-145); eGFR > 60.00
[2025-03-30 01:39] LABS: Glucose - Point of Care 288 mg/dl (70-99)
[2025-03-30] MEDS: NSS with KCL 20 MEQ 1000 IV ×4 (01:39→20:47)
[2025-03-30 02:21] LABS: Blood Urea Nitrogen 13 mg/dl (9-20); Calcium 8.6 mg/dl (8.4-10.2); Carbon Dioxide 25 mmol/L (22-30); Chloride 112 mmol/L (98-107); Estimated Creatinine Clearance 124 ml/min; Glucose 243 mg/dl (70-99); Potassium 3.0 mmol/L (3.5-5.1); Sodium 137 mmol/L (135-145); eGFR > 60.00
[2025-03-30] MEDS: KCL 40 MEQ PO (02:39)
[2025-03-30 02:47] LABS: Magnesium 1.7 mg/dl (1.6-2.3)
[2025-03-30 02:53] LABS: Glucose - Point of Care 181 mg/dl (70-99)
[2025-03-30 05:23] LABS: Hematocrit 36.9 % (39.0-52.0); Hemoglobin 12.8 g/dL (13.0-18.0); INR 0.90; Mean Corp Hgb Conc. 34.7 g/dL (33.0-37.0); Mean Corpuscular Volume 88.3 fL (80.0-94.0); Nucleated Red Blood Cells % 0 % (-); PT 12.4 Sec (11.4-14.6); Platelet Count 224 10^3/uL (130-400); Red Cell Dist. Width 12.5 % (11.5-14.5)
[2025-03-30 05:24] LABS: APTT 24.0 Sec (23.4-35.0)
[2025-03-30 05:42] LABS: Blood Urea Nitrogen 12 mg/dl (9-20); Calcium 8.6 mg/dl (8.4-10.2); Carbon Dioxide 22 mmol/L (22-30); Chloride 112 mmol/L (98-107); Estimated Creatinine Clearance 124 ml/min; Glucose 127 mg/dl (70-99); Potassium 3.8 mmol/L (3.5-5.1); Sodium 137 mmol/L (135-145); eGFR > 60.00
[2025-03-30 06:29] LABS: Magnesium 1.8 mg/dl (1.6-2.3)
--- NOTE | 2025-03-30 06:31 | PTCARENOTE ---
Received patient from the ED with insulin gtt on hold. Blood sugar less than 250- construction carpenters helper provider made aware and d/cd insulin gtt and started patient on a diet and sq insulin. automation design engineer provider reviewed am BMP.
[2025-03-30 08:37] LABS: Glucose - Point of Care 208 mg/dl (70-99)
[2025-03-30] MEDS: LANTUS 0.1 UNITS SC (08:44)
[2025-03-30] MEDS: NOVOLOG FLEXPEN-LOW RESISTANCE 2 UNITS SC (09:13)
[2025-03-30 10:26] LABS: Glycohemoglobin (HgbA1c) 16.5 % (4.0-5.6)
--- NOTE | 2025-03-30 11:19 | CM ---
CM following re: discharge planning.
Reviewed pt's chart, met with pt.
Pt is a 64 year old male, admitted with primary dx of Hyperglycemia with glucose 712 on admit.
Pt reports he lives with daughter and a granddaughter in an apartment, has 2 living supportive daughters, one daughter and today is 1 year anniversary. Emotional support offered and provided. 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
CM received TTed consult from MD to assist pt with insulin affordable coverage. CM reports he cannot afford insurance. [facility] insurance information provided and pt stated he will apply.
CM spoke to [facility] pharmacist in [facility] and she confirmed they do have programs for uninsured patients and pt will need to come to the pharmacy with insulin prescription and they will help to afford the flaherty. Per pharmacist Novolog pen -
$83.88 for 1500 units and Novolog vill 1500 units - $57.88.
CM discussed it with the pt and pt stated he goes to [facility] pharmacy and pt stated he will afford $57.88 flaherty and he will come to [facility] pharmacy to get prescribed insulin. Also, pt has been informed of using [facility] for affordable
flaherty for insulin. A printed coupon for Novolin with $57.25 for 100 units for topday 03/30/25 given to the pt and pt is aware to have [facility] printed coupon on the day coming to the pharmacy.
PCP: [facility] [place]
Pharmacy: [facility].
D/C plan: home with family support and to follow up with [facility] to obtain an affordable insurance.
CM will follow with discharge plan updates as hospitalization progresses
[2025-03-30 13:00] LABS: Glucose - Point of Care 310 mg/dl (70-99)
[2025-03-30] MEDS: NOVOLOG FLEXPEN-LOW RESISTANCE 4 UNITS SC (13:29)
--- NOTE | 2025-03-30 16:43 | W.PN.HOSP.TC ---
Today's Communication/Plan
-
Assessment / Plan
Assessment / Plan
Uncontrolled Diabetes
A1c 16.3
Off insulin gtt
Without evidence of HHNK or DKA
Now started on long and short acting insulin
Will need CM help in assistance of affording insulin
Will need a new glucometer
Diabetes education
Diabetes management consult
Hypokalemia
Repleted
CAD hx
Not on statin nor Asa
Will check Lipid profile
Anticipated Discharge: Within 24 hours
Subjective/Interval History
-
Date of Service: March 30, 2025
seen and exmained. no new complaints. no acute ovenright events
Objective Data
-
Labs:
Laboratory Results
03/30/25
04:54
WBC 6.8
Hgb 12.8 L
Hct 36.9 L
Plt Count 224
PT 12.4
INR 0.90
APTT 24.0
Sodium 137
Potassium 3.8 D
Chloride 112 H
Carbon Dioxide 22
BUN 12
Creatinine 0.4 L
Glucose 127 H
Calcium 8.6
Vital Signs:
Vital Signs
Temp Pulse Resp BP Pulse Ox
98.5 F 96 10 86/65 98
03/30/25 15:51 03/30/25 08:02 03/30/25 08:02 03/30/25 08:02 03/30/25 14:29
I&O
03/29/25 03/30/25 03/31/25
06:59 06:59 06:59
Intake Total 600 / 600
Output Total 600 / 600
Balance 600 / 600 -600 / -600
Physical Exam
-
General: Well Developed and Well Nourished
HEENT: Normocephalic and Atraumatic
Respiratory: Clear to Auscultation
Cardiac: Regular Rhythm and S1/S2
Musculoskeletal: No Clubbing, No Cyanosis and No Edema
Neuro: Awake and AO x 3
[2025-03-30] MEDS: LOVENOX 40 MG SC (17:36)
[2025-03-30 17:48] LABS: Glucose - Point of Care 447 mg/dl (70-99)
[2025-03-30 18:18] LABS: Glucose 356 mg/dl (70-99)
[2025-03-30] MEDS: NOVOLOG FLEXPEN-LOW RESISTANCE 5 UNITS SC (18:32)
[2025-03-30] MEDS: TYLENOL 650 MG PO (23:38)
[2025-03-31] VITALS (10 sets, daily range): BP systolic 109–146; BP diastolic 67–99
[2025-03-31] MEDS: NSS with KCL 20 MEQ 1000 IV (03:23)
--- NOTE | 2025-03-31 06:25 | PTCARENOTE ---
No acute events overnight. Remains on IVF. Plan for solution director and case management consult today.
--- NOTE | 2025-03-31 07:48 | PN.DE.MGMTRT ---
Insulin Management
- -
03/31/2025: Diabetes Management Consult
64 yo man with hx CAD, essential HTN, HLD, WPW s/p ablation, IDDM with medication non-compliance. Patient presented to the ER with urinary incontinence, increased thirst and generalized weakness. States he has been off of insulin for a few years and
currently doesn't take any medications due to cost and lack of insurance coverage. on admission he was noted for severe hyperglycemia (glucose 712). No evidence of DKA or HHS given pt was not acidotic or confused.
he was initiated on the critical care glycemic protocol for a brief period of time and was transitioned to SQ insulin; Lantus 10 unit in AM with corrective insulin.
Will stop Lantus and switch to 70/30 insulin, due cost and no health insurance coverage,
Start 70/30 insulin - 15 units BID, 1st dose now and Metformin 500 mg BID. Change to moderate corrective with meals.
Discussed regimen with pt and he was receptive. Will cont to follow and make further dose adjustments if necessary
Discussed with Nurse at bedside.
Diabetes History
- -
Type of Diabetes: 2 requiring insulin
Pre-Admission Diabetes Regimen
Lab Results
Hemoglobin A1c 16.5 % (4.0-5.6) H 03/30/25 04:54
Insulin Pump Settings
IP Diabetes Regimen
03/30/25 03/30/25 03/30/25
08:26 12:49 17:37
Glucose
POC Glucose 208 H 310 H 447 H
03/30/25
17:46
Glucose 356 H
POC Glucose
Patient Education
[2025-03-31] MEDS: LANTUS SC (08:28)
[2025-03-31 08:44] LABS: Glucose - Point of Care 288 mg/dl (70-99)
--- NOTE | 2025-03-31 08:50 | W.PN.HOSP.TC ---
Today's Communication/Plan
-
Diabetes STABLE HELPER consult
Cardiology consult
Assessment / Plan
Assessment / Plan
Gen-AAOx3, NAD
HEENT-NC, AT, anicteric, clear oral mm
Neck-supple
CV-reg, no M, +S1/S2, tachycardic
Lungs-clear B/L
Abd-soft, NT, ND
Ext-no edema
Musculoskeletal-no cyanosis, clubbing
Skin-warm and dry
Neuro-grossly non-focal
Psych-calm, cooperative
DM2 with hyperglycemia -has been noncompliant with diabetes care for at least 2 years. Stopped insulin a couple years ago. Does not have health insurance.
Hemoglobin A1c 16.5%. Glucose 288 this morning.
Diabetes STABLE HELPER consulted. Case management to assist with Medical assistance, currently does not have health insurance.
Hypokalemia -resolved.
Rapid Atrial flutter/WPW -discontinued atenolol, Xarelto years ago. Was lost to follow-up with cardiology. Known to Dr. Jignesh Smith. Currently heart rate in the 120s. Asymptomatic. Cardiology consulted.
CAD hx
Not on statin nor Asa
Will check Lipid profile
Full code
Anticipated Discharge: 24 - 48 hours
Subjective/Interval History
-
Date of Service: March 31, 2025
Patient seen and examined. No complaints.
Objective Data
-
Vital Signs:
Vital Signs
Temp Pulse Resp BP Pulse Ox
98.1 F 101 7 129/76 95
03/31/25 07:10 03/31/25 04:00 03/31/25 04:00 03/31/25 04:00 03/31/25 00:26
I&O
03/30/25 03/31/25 04/01/25
06:59 06:59 06:59
Intake Total 600 / 600 1800 / 1800
Output Total 2049 350 / 350
Balance 600 / 600 -250 / -250 -350 / -350
Review of Systems
-
History Source: Patient
All other systems: Reviewed and negative
[2025-03-31] MEDS: NOVOLOG FLEXPEN-LOW RESISTANCE 3 UNITS SC (09:12)
[2025-03-31] MEDS: GLUCOPHAGE 500 MG PO ×2 (09:12→17:42)
[2025-03-31] MEDS: NOVOLOG MIX 70/30 FLEXPEN 15 UNITS SC ×2 (09:48→18:28)
--- NOTE | 2025-03-31 09:57 | PTCARENOTE ---
Patient AOx3. On RA with SpO2 greater than 92%. Sinus tach with PAC's, PVC's, and a fib on the monitor. BP stable. Assist x1 when ambulating in room. Call rowan within reach, bed in lowest position, and bed of wheels locked.
--- NOTE | 2025-03-31 10:36 | CON.CAR ---
Addendum entered and electronically signed by Fidel Hurtado MD 03/31/25 12:43:
I saw and examined the patient.
The GRADER PATROL or PA's note was reviewed and I agree with the note.
Comment: General: Well developed, well nourished in NAD.
Neck: Supple, no JVD, HJR, carotids +2 B/L, no bruits bilaterally.
Heart: Non displaced PMI, RRR, no murmurs, No S3, S4, no rubs.
Lungs: Clear to auscultation bilaterally, no wheeze, rhonchi, rubs bilaterally,
normal expiratory phase.
Extremities: No clubbing, cyanosis or edema bilaterally.
Neuro: Grossly nonfocal, awake, alert and oriented x3.
Zana has a history of atrial flutter not anticoagulated as patient unable to afford anticoagulation, type 2 diabetes, hypertrophic cardiomyopathy with LVOT gradient of 147 mm at rest increased to 9 mmHg with Valsalva in February 2024,
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 Patient has
been lost to follow-up in our office since March 2024. He presented with decreased urine output and generalized weakness admitted with type 2 diabetes [id number]. Cardiology is consulted for rapid atrial flutter on ECG.
Will start Toprol and attempt to control atrial flutter. Unclear if he will be a candidate for TAMIKO/cardioversion as compliance with anticoagulation may be an issue and also has no insurance. Will continue rate control for now. Will check
echocardiogram.
Original Note:
Consultation
Consultation Request
Date/Time Consultation Requested: 03/31/2025 at 0845
Date/Time Consultation Performed: 03/31/2025 at 1025
Requesting Provider: Dr. Ventura
Performing Provider: Dr. Hurtado
Reason for Consultation: Atrial flutter
Medical History
-
History of Present Illness:
Patient came to the ER yesterday with increased urine output and generalized weakness and was admitted with type 2 diabetes that was tcr-vi-[id number] with hyperglycemia and cardiology is consulted for persistent atrial flutter seen on ECG. Patient
was admitted to [facility] 03/10/2024 until 03/13/2024 with SBO and was newly diagnosed with atrial flutter at that time. TAMIKO/CV was deferred due to the SBO, but unfortunately the patient did not have medical insurance and while he was able to follow-up
in the office once 04/08/2024 he did not have additional follow-up because he could not afford it and he also could not afford an elective outpatient TAMIKO/CV. When he was last seen in the office on 04/08/2024 he reported that he was taking his Xarelto
20 mg daily and at that time we increased his Toprol XL to 50 mg daily. Patient says at this point he is not taking any medications. He thinks he stopped taking his Xarelto because it made him feel poorly, but he is really not sure. ECG on
admission shows atrial flutter with HR 103 bpm. HR is a bit faster up to 120 in the room with me now, the patient denies any palpitations and overall seems to be asymptomatic with his atrial flutter. He denies any chest pain or SOB. No orthopnea
or edema.
PM:
Previous admission for SBO and atrial flutter 03/10/2024 until 03/13/2024
Type 2 diabetes
Persistent atrial flutter, present since at least 02/2024
Not chronically anticoagulated, unable to afford OAC as an outpatient
h/o hypertrophic cardiomyopathy
LVOT 147 mmHg at rest, increased to 229 mmHg with Valsalva by echo 03/11/2024
h/o Jpgpq-Ujpngycld-Cpbti syndrome status post attempted ablation, accessory pathway currently conduction intermittently only
HTN
cLBBB
Mild to mod MR by echo 05/16/22, stable on echo 03/11/2024
Depression
Hypercholesterolemia
Ongoing tobacco abuse
History of sleep apnea
Past Medical History
Past Medical History: Other (in HPI)
Past Surgical History: Cardiac (WPW with failed ablation with partial modification of pathway x2) and Orthopedic
Social History
Tobacco: Smoker
Alcohol: None
Drug: None
Personal: Single
Living: Alone
Employment: Employed (works for a [employer])
Family History
Family History: Cancer and Diabetes
Allergies / Home Medications
Allergy/AdvReac Type Severity Reaction Status Date / Time
oxycodone Allergy Itching Verified 03/29/25 19:55
codeine (Codeine) AdvReac Nausea / Verified 03/29/25 19:55
Vomiting
�Medication �Instructions �Recorded �Confirmed �Type
insulin glargine 100 unit/mL 5 unit (0.05 mL) SC QPM #10 mL 03/13/24 Rx
subcutaneous solution (Lantus
U-100 Insulin)
insulin syringe-needle U-100 0.5 #100 ea 03/13/24 Rx
mL 29 gauge x 1/2' (Insulin
Syringe)
metoprolol succinate 25 mg 25 mg PO DAILY Arrhythmia #30 tabs 03/13/24 Rx
tablet,extended release 24 hr
rivaroxaban 20 mg tablet (Xarelto) 20 mg PO DAILY Blood clot 03/13/24 Rx
prevention/tx #30 tabs
Review of Systems
-
History Source: Patient
All other systems: Negative unless noted
Physical Exam
Vital Signs
Temp Pulse Resp BP Pulse Ox
98.1 F 122 10 132/74 96
03/31/25 07:10 03/31/25 10:00 03/31/25 10:00 03/31/25 08:00 03/31/25 08:00
GEN: NAD. AAOx3
HEENT: MMM
LUNGS: RA. No audible wheeze
CV: Atrial flutter on tele. Irreg irreg. No murmur
ABD: ND, NT, +BS, soft
EXT: No edema B/L
NEURO: Gross non-focal
SKIN: No rash
Lab Results
03/30/25 04:54
03/30/25 22:00
Impression / Plan
-
PCP: Garret CASTANEDA
Hide Buyer: Dr. ZIGGY Smith
Impression:
Admitted with DM 2 and hyperglycemia and atrial flutter 03/29/25
Previous admission for SBO and atrial flutter 03/10/2024 until 03/13/2024
Type 2 diabetes, HgbA1c 16%
Persistent atrial flutter, present since at least 02/2024
Not chronically anticoagulated, unable to afford OAC as an outpatient
h/o hypertrophic cardiomyopathy
LVOT 147 mmHg at rest, increased to 229 mmHg with Valsalva by echo 03/11/2024
h/o Zhuqn-Zsyhobwsu-Oreom syndrome status post attempted ablation, accessory pathway currently conduction intermittently only
HTN
cLBBB
Mild to mod MR by echo 05/16/22, stable on echo 03/11/2024
DM 2
Depression
Hypercholesterolemia
Ongoing tobacco abuse
History of sleep apnea
Lexiscan nuclear stress test 07/19/2017: Moderate area of mildly decreased perfusion that is minimally reversible in the inferior lateral, inferior, inferior septal segments consistent with soft tissue attenuation, EF 55%, dilated left ventricle
Echo 07/19/2017:�EF 70 to 75%, severe LVH, stage I DD, LVOT gradient peak gradient 82 mmHg, moderate dilated LA, normal RA, thickened MV with moderate systolic anterior motion in the anterior leaflet and moderate eccentric posterior directed MR.
Calcified AV.� Trace AI.� Trace TR, PAP 20 to 25 mmHg
Echo 05/16/22: EF 55-60%, normal wall motion, severe conc LVH, LVOT gradient 102 mmHg at rest that increases 177 mmHg with Valsalva, stage I diastolic dysfunction, mild aortic regurgitation, mildly dilated aortic root
Echo 03/11/2024: EF 50 to 55%, LVOT 147 that increases to 229 with Valsalva. Severe concentric LVH biatrial enlargement. Mild to moderate MR. Mild to moderate AI. Moderate TR, PAP 20 to 25 mmHg
Plan:
-Patient came to the ER yesterday with increased urine output and generalized weakness and was admitted with type 2 diabetes that was hru-wh-tzpmfch with hyperglycemia and cardiology is consulted for persistent atrial flutter seen on ECG. Patient
was admitted to [facility] 03/10/2024 until 03/13/2024 with SBO and was newly diagnosed with atrial flutter at that time. TAMIKO/CV was deferred due to the SBO, but unfortunately the patient did not have medical insurance and while he was able to follow-up
in the office once 04/08/2024 he did not have additional follow-up because he could not afford it and he also could not afford an elective outpatient TAMIKO/CV. When he was last seen in the office on 04/08/2024 he reported that he was taking his Xarelto
20 mg daily and at that time we increased his Toprol XL to 50 mg daily. Patient says at this point he is not taking any medications. He thinks he stopped taking his Xarelto because it made him feel poorly, but he is really not sure. ECG on
admission shows atrial flutter with HR 103 bpm. HR is a bit faster up to 120 in the room with me now, the patient denies any palpitations and overall seems to be asymptomatic with his atrial flutter. He denies any chest pain or SOB. No orthopnea
or edema.
-ECG reviewed by me looks like atrial flutter with HR 103 bpm. QTc looks long at 513 ms, but he is in atrial flutter
-Recheck ECG, recheck QT, ordered by me
-Patient with persistent atrial flutter. We were previously unable to perform TAMIKO/CV as his admission 02/2024 was due to SBO and outpatient care complicated by lack of medical insurance. We made a plan to check echo and if EF is reduced then make
an attempt at TAMIKO/CV. If EF is otherwise preserved then we will have to discuss ongoing management with rate control and OAC vs an attempt at rhythm control to see if there is any change in his symptoms, but otherwise he is asymptomatic with atrial
flutter.
-Patient plans to sign up for Medicare when he turns 65 in July, but until then he will not have the ability to pay for OAC. If patient were to have TAMIKO/CV this admission we could use a 30-day free Eliquis card to get us through that month.
Otherwise he will likely be unable to afford both his insulin and generic Pradaxa which would be the only generic DOAC available. He would be unable to use warfarin as he would have to pay [id number] for INRs.
-Check echo, ordered by me
-Restart Toprol XL at 25 mg daily and then increase as BP tolerates, ordered by me
-Patient also with history of hypertrophic cardiomyopathy gradients as outlined above, recheck gradients on echo
[2025-03-31 12:03] LABS: Glucose - Point of Care 325 mg/dl (70-99)
--- NOTE | 2025-03-31 12:48 | PTCARENOTE ---
03/31/2025
I met with Zana to review diabetes management. He is inpatient with hyperglycemia, not taking Lantus due to cost and does not have health insurance due to high premium cost through his employer. Spoke to CM and requested consult. He also states
that he has been drinking 1 liter regular soda per day. I educated patient to avoid soda and increase water intake.
I educated on physiology of T2D, organ damage, managing with medications, monitoring BG, nutrition, activity, sleep and managing stress. He states he does have neuropathy. I reinforced signs of hyperglycemia, hypoglycemia and hypoglycemia protocol;
BS parameters and recommended HbA1c goals, glucometer instructions, glucose tracker, medic alert bracelet and outpatient DSME program. Written material provided.
I educated and reviewed using Contour Next glucometer, member acknowledged understanding with a self demonstration of checking BS. Provided him with a Contour Next sample kit.
I educated and demonstrated on insulin injection technique, timing, and storage. Discussed long, short acting and 70/30 insulin onset/peak/duration. Discussed normal target glucose ranges and a monitoring schedule 30 minutes before each meal
when prescribed 70/30, and preprandial AM and/or bedtime as recommended by MD. Mr. Ford states that he does not eat breakfast, just lunch and dinner. Encouraged him to discuss this with
Referred patient to [facility] for their over the counter glucometer, test, strips and lancets. 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
He has not seen his PCP in years, I encouraged patient to follow up with his PCP for post d/c appointment and to monitor medication and blood glucose levels. Provided list of endocrinologists if desired. Patient verbalized understanding.
--- NOTE | 2025-03-31 12:50 | PTCARENOTE ---
Assumed care of patient. Assessment completed and documented in shift assessment.
Patient is AAOX4, cooperative with care. A Flutter on monitor. B/L FA IV patent. R FA Abrasion. BP Stable. Trace edema to bilateral pedals, + pulses. RA, diminished throughout/crackles to bases. Round abdomen, + BS, ordered 1800 diabetic diet. Voids
clear/yellow urine. OOB without assist. Pending echocardiogram. Evaluated by Diabetic SPRING BENDER this afternoon.
[2025-03-31] MEDS: NOVOLOG FLEXPEN-LOW RESISTANCE SC (13:14)
[2025-03-31] MEDS: TOPROL XL 25 MG PO (13:55)
[2025-03-31] MEDS: NOVOLOG FLEXPEN-MODERATE RESISTANCE 7 UNITS SC (14:32)
[2025-03-31 17:39] LABS: Glucose - Point of Care 434 mg/dl (70-99)
[2025-03-31] MEDS: LOVENOX 40 MG SC (17:42)
[2025-03-31 17:57] LABS: Glucose 295 mg/dl (70-99)
[2025-03-31] MEDS: NOVOLOG FLEXPEN-MODERATE RESISTANCE 5 UNITS SC (18:29)
[2025-03-31 22:12] LABS: Glucose - Point of Care 265 mg/dl (70-99)
--- NOTE | 2025-03-31 23:55 | PTCARENOTE ---
Patient aao x3 since start of shift, denies pain, able to make needs known. ST on the monitor with PVCs, PACs, a flutter at times. Lungs cta throughout, bs active x4. Patient using call rowan appropriately, will continue to monitor patient closely.
[2025-04-01] VITALS (10 sets, daily range): BP systolic 98–131; BP diastolic 60–86
[2025-04-01 03:30] LABS: Hematocrit 38.9 % (39.0-52.0); Hemoglobin 13.5 g/dL (13.0-18.0); Mean Corp Hgb Conc. 34.7 g/dL (33.0-37.0); Mean Corpuscular Volume 88.0 fL (80.0-94.0); Platelet Count 231 10^3/uL (130-400); Red Cell Dist. Width 12.7 % (11.5-14.5)
[2025-04-01 03:55] LABS: Blood Urea Nitrogen 12 mg/dl (9-20); Calcium 9.4 mg/dl (8.4-10.2); Carbon Dioxide 27 mmol/L (22-30); Chloride 106 mmol/L (98-107); Estimated Creatinine Clearance 124 ml/min; Glucose 203 mg/dl (70-99); Magnesium 1.7 mg/dl (1.6-2.3); Potassium 4.3 mmol/L (3.5-5.1); Sodium 135 mmol/L (135-145); eGFR > 60.00
--- NOTE | 2025-04-01 04:13 | PTCARENOTE ---
Earlier this am, patients hr increased to 200's, then quickly returned to low 100's. Shortly after, patients hr increased to high 100's. Patient denies palpitations, pain, or discomfort and states that he was returning to bed and adjusting the
blankets. EKG obtained to confirm, am labwork drawn and sent at that time as well. HOOKER OPERATOR notified, no changed, no new orders. Will continue to monitor.
[2025-04-01 07:54] LABS: Glucose - Point of Care 330 mg/dl (70-99)
--- NOTE | 2025-04-01 08:27 | PTCARENOTE ---
Patient received from shift manager. Patient resting comfortably in bed. AAO, VSS. No events noted overnight. No complaints of pain at this time. Currently on Room Air. Continuing glucose management. No fluids via IV. Patient in for ECHO
today, no other tests scheduled. Call rowan in reach.
--- NOTE | 2025-04-01 08:36 | W.PN.HOSP.TC ---
Addendum entered and electronically signed by Bebo Ventura DO 04/01/25 12:40:
I spoke with Dr. Deng, unfortunately patient can not afford DOAC (Xarelto, Eliquis) on discharge. Case management states cost would be $800/month.
Cardiology office no longer provides samples.
Will discharge him on aspirin for stroke prophylaxis.
Addendum entered and electronically signed by Bebo Ventura DO 04/01/25 12:29:
Hyponatremia -present on admission. Likely pseudohyponatremia due to hyperglycemia. Resolved.
Cardiology to comment on need for anticoagulation on discharge.
Possible discharge later today after echocardiogram if stable.
Original Note:
Today's Communication/Plan
-
Await echocardiogram
Assessment / Plan
Assessment / Plan
Gen-AAOx3, NAD
HEENT-NC, AT, anicteric, clear oral mm
Neck-supple
CV-reg, no M, +S1/S2, tachycardic
Lungs-clear B/L
Abd-soft, NT, ND
Ext-no edema
Musculoskeletal-no cyanosis, clubbing
Skin-warm and dry
Neuro-grossly non-focal
Psych-calm, cooperative
DM2 with hyperglycemia -has been noncompliant with diabetes care for at least 2 years. Stopped insulin a couple years ago. Does not have health insurance.
Hemoglobin A1c 16.5%. Glucose 203 this morning.
Diabetes REFRACTORY SPECIALIST consulted. Case management to assist with Medical assistance, currently does not have health insurance.
Currently on NovoLog Mix 70/30, 15 units twice daily. Moderate resistance NovoLog scale. Will need higher doses moving forward, awaiting diabetes REFRACTORY SPECIALIST to round.
Hypokalemia -resolved.
Rapid Atrial flutter/WPW -discontinued atenolol, Xarelto years ago. Was lost to follow-up with cardiology. Known to Dr. Jignesh Smith. Currently heart rate in the 120s. Started Toprol XL. Check echocardiogram.
CAD hx
Not on statin nor Asa
Will check Lipid profile
Full code
Anticipated Discharge: Within 24 hours
Subjective/Interval History
-
Date of Service: April 01, 2025
Patient seen and examined. No complaints.
Objective Data
-
Labs:
Laboratory Results
04/01/25
03:00
WBC 6.9
Hgb 13.5
Hct 38.9 L
Plt Count 231
Sodium 135
Potassium 4.3
Chloride 106
Carbon Dioxide 27
BUN 12
Creatinine 0.4 L
Glucose 203 H
Calcium 9.4
Vital Signs:
Vital Signs
Temp Pulse Resp BP Pulse Ox
98.4 F 93 9 107/66 96
04/01/25 07:05 04/01/25 04:00 04/01/25 04:00 04/01/25 04:00 04/01/25 04:17
I&O
03/31/25 04/01/25 04/02/25
06:59 06:59 06:59
Intake Total 1800 / 1800
Output Total 2049 1600 / 1600
Balance -250 / -250 -1600 / -1600
Review of Systems
-
History Source: Patient
All other systems: Reviewed and negative
--- NOTE | 2025-04-01 09:11 | PN.DE.MGMTRT ---
Insulin Management
- -
04/01/2025: Diabetes Management Consult Follow up
Patient admitted 03/29 with urinary incontinence, increased thirst and generalized weakness. PMH CAD, essential HTN, HLD, WPW s/p ablation, IDDM with medication non-compliance. States he has been off of insulin for a few years and currently doesn't
take any medications due to cost and lack of insurance coverage.
Lantus stopped 03/31, switched to 70/30 insulin, due cost and no health insurance coverage, received 70/30 15 units BID and Metformin 500 mg BID with moderate corrective with meals.
04/01 Patient is awake alert and oriented, able to discuss diabetes care. States he has had diabetes 12 years, hasn't seen his primary due to no insurance. Fasting glucose 330, will increase 70/30 to 20 units BID, continue metformin and moderate
corrective.
Discussed regimen with pt and he was receptive. Strongly encouraged to reconnect with primary doctor. He is also encouraged to obtain the [facility] glucose monitor as the supplies are more reasonable. He has been given the Contour glucose
monitor. Will cont to follow and make further dose adjustments if necessary
Discussed with Nurse.
Will follow.
Diabetes History
- -
Type of Diabetes: 2 requiring insulin
Pre-Admission Diabetes Regimen
04/01/25
03:00
Creatinine 0.4 L
Lab Results
Hemoglobin A1c 16.5 % (4.0-5.6) H 03/30/25 04:54
Insulin Pump Settings
IP Diabetes Regimen
03/31/25 03/31/25 03/31/25
11:50 17:27 17:35
Glucose 295 H
POC Glucose 325 H 434 H
03/31/25 04/01/25 04/01/25
22:00 03:00 07:41
Glucose 203 H
POC Glucose 265 H 330 H
Patient Education
[2025-04-01] MEDS: GLUCOPHAGE 500 MG PO ×2 (09:17→17:39)
[2025-04-01] MEDS: TOPROL XL 25 MG PO ×2 (09:17→11:22)
[2025-04-01] MEDS: NOVOLOG MIX 70/30 FLEXPEN SC (09:24)
[2025-04-01] MEDS: NOVOLOG FLEXPEN-MODERATE RESISTANCE 7 UNITS SC ×2 (09:29→13:19)
[2025-04-01] MEDS: NOVOLOG MIX 70/30 FLEXPEN 20 UNITS SC ×2 (09:31→17:39)
--- NOTE | 2025-04-01 10:11 | W.PN.CARDCBS ---
Documented by User: Silvio CorneliusVeronica Deep, [facility] 04/01/25 11:19
Today's Communication / Plan
-
We met with the patient to discuss his plan for potential discharge later today or tomorrow. We discussed increasing his Toprol XL to 50mg daily due to persistent atrial flutter with a HR up to 122 when seen today. Patient is agreeable with this
plan and will receive an additional dose of Toprol XL 25mg this afternoon. We will monitor his blood pressure and assure good tolerance before discharge. We are awaiting results of the echo to determine if cardioversion is an appropriate course of
action, emphasizing the importance of adherence to anticoagulation following cardioversion with the patient. He verbalized his understanding, but we will return to discuss treatment options once the results of the echo are in.
Impression / Plan
-
PCP: Garret CASTANEDA
Stitch Bonding Machine Tender: Dr. ZIGGY Smith
Impression:
Admitted with DM 2 and hyperglycemia and atrial flutter 03/29/25
Previous admission for SBO and atrial flutter 03/10/2024 until 03/13/2024
Type 2 diabetes, HgbA1c 16%
Persistent atrial flutter, present since at least 02/2024
Not chronically anticoagulated, unable to afford OAC as an outpatient
h/o hypertrophic cardiomyopathy
LVOT 147 mmHg at rest, increased to 229 mmHg with Valsalva by echo 03/11/2024
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
HTN
cLBBB
Mild to mod MR by echo 05/16/22, stable on echo 03/11/2024
DM 2
Depression
Hypercholesterolemia
Ongoing tobacco abuse
History of sleep apnea
Lexiscan nuclear stress test 07/19/2017: Moderate area of mildly decreased perfusion that is minimally reversible in the inferior lateral, inferior, inferior septal segments consistent with soft tissue attenuation, EF 55%, dilated left ventricle
Echo 07/19/2017:�EF 70 to 75%, severe LVH, stage I DD, LVOT gradient peak gradient 82 mmHg, moderate dilated LA, normal RA, thickened MV with moderate systolic anterior motion in the anterior leaflet and moderate eccentric posterior directed MR.
Calcified AV.� Trace AI.� Trace TR, PAP 20 to 25 mmHg
Echo 05/16/22: EF 55-60%, normal wall motion, severe conc LVH, LVOT gradient 102 mmHg at rest that increases 177 mmHg with Valsalva, stage I diastolic dysfunction, mild aortic regurgitation, mildly dilated aortic root
Echo 03/11/2024: EF 50 to 55%, LVOT 147 that increases to 229 with Valsalva. Severe concentric LVH biatrial enlargement. Mild to moderate MR. Mild to moderate AI. Moderate TR, PAP 20 to 25 mmHg
Echo 04/01/2025: pending
Plan:
-HR is elevated to 122 in the room with me 04/01/25, the patient denies any palpitations, chest pain, SOB, orthopnea or edema.
-ECG 04/01/2025 reviewed by me looks like atrial flutter with HR 93 bpm. QTc has shortened to 447 ms from 513 ms 03/30/2025.
-Patient with persistent atrial flutter. We were previously unable to perform TAMIKO/CV as his admission 02/2024 was due to SBO and outpatient care complicated by lack of medical insurance. The plan remains to check echo and if EF is reduced then make
an attempt at TAMIKO/CV. If EF is otherwise preserved then we will have to discuss ongoing management with rate control and OAC vs an attempt at rhythm control to see if there is any change in his symptoms, but otherwise he is asymptomatic with atrial
flutter. We will discuss again with patient once we have results of echo.
-Patient plans to sign up for Medicare when he turns 65 in July, but until then he will not have the ability to pay for OAC. If patient were to have TAMIKO/CV this admission we could use a 30-day free [employer] card to get us through that month.
Otherwise he will likely be unable to afford both his insulin and generic Pradaxa which would be the only generic DOAC available. He would be unable to use warfarin as he would have to pay [id number] for INRs.
-Echo pending, ordered by me
-Increase Toprol XL to 50 mg daily and then increase as BP tolerates, ordered by me
-Continue Lovenox 40mg sc QPM, but consider changing to Eliquis 5 mg BID (age 64 and wt 70kg) and then we could use the 30 day free sample card upon d/c
-Patient is currently attempting to quit nicotine use and would not like NRT at this time, tolerating well with no withdrawal symptoms
-Patient also with history of hypertrophic cardiomyopathy gradients as outlined above, recheck gradients on echo
HPI: Patient came to the ER 03/29/2025 with increased urine output and generalized weakness and was admitted with type 2 diabetes that was [id number] with hyperglycemia and cardiology is consulted for persistent atrial flutter seen on ECG.
Patient was admitted to [facility] 03/10/2024 until 03/13/2024 with SBO and was newly diagnosed with atrial flutter at that time. TAMIKO/CV was deferred due to the SBO, but unfortunately the patient did not have medical insurance and while he was able to
follow-up in the office once 04/08/2024 he did not have additional follow-up because he could not afford it and he also could not afford an elective outpatient TAMIKO/CV. When he was last seen in the office on 04/08/2024 he reported that he was taking
his Xarelto 20 mg daily and at that time we increased his Toprol XL to 50 mg daily. Patient says at this point he is not taking any medications. He thinks he stopped taking his Xarelto because it made him feel poorly, but he is really not sure.
ECG on admission shows atrial flutter with HR 103 bpm.
Progress Note - Stitch Bonding Machine Tender
Subjective
Date of Service: April 01, 2025
Patient us a 64 y.o WM admitted 02/27/2025 for hyperglycemia and cardiology consulted for uncontrolled asymptomatic atrial flutter. He has not been adherent to any medications due to lack of insurance and financial hardships. His hyperglycemia is
being managed by the hospitalist team and has improved. He is feeling well and in good spirits, denying palpitations, SOB, chest pain, edema or orthopnea.
Objective
Labs:
04/01/25 03:00
04/01/25 03:00
Labs
Hgb 13.5 g/dL (13.0-18.0) 04/01/25 03:00
Hct 38.9 % (39.0-52.0) L 04/01/25 03:00
Plt Count 231 10^3/uL (130-400) 04/01/25 03:00
PT 12.4 Sec (11.4-14.6) 03/30/25 04:54
INR 0.90 03/30/25 04:54
APTT 24.0 Sec (23.4-35.0) 03/30/25 04:54
Sodium 135 mmol/L (135-145) 04/01/25 03:00
Potassium 4.3 mmol/L (3.5-5.1) 04/01/25 03:00
BUN 12 mg/dl (9-20) 04/01/25 03:00
Creatinine 0.4 mg/dL (0.7-1.3) L 04/01/25 03:00
Glucose 203 mg/dl (70-99) H 04/01/25 03:00
Vital Signs and I&O:
Vital Signs
Temp Pulse Resp BP Pulse Ox
98.4 F 120 9 110/67 96
04/01/25 07:05 04/01/25 09:17 04/01/25 04:00 04/01/25 09:17 04/01/25 04:17
Vital Signs
Temp Pulse Resp BP Pulse Ox
98.4 F 120 9 110/67 96
04/01/25 07:05 04/01/25 09:17 04/01/25 04:00 04/01/25 09:17 04/01/25 04:17
Intake & Output
03/30/25 03/31/25 04/01/25 04/02/25
06:59 06:59 06:59 06:59
Intake Total 600 / 600 1800 / 1800
Output Total 2049 / 2049 1600 / 1600
Balance 600 / 600 -250 / -250 -1600 / -1600
Physical Exam
Physical Exam
GEN: NAD. AAOx3
HEENT: MMM
LUNGS: RA. No audible wheeze
CV: Atrial flutter on tele. Reg irreg. No murmur
ABD: ND, NT, +BS, soft
EXT: No edema B/L
NEURO: Gross non-focal
SKIN: No rash

Documented by User: Guillermina Rock PA-C 04/01/25 14:41
Impression / Plan
-
PCP: Garret CASTANEDA
Stitch Bonding Machine Tender: Dr. ZIGGY Smith
Impression:
Admitted with DM 2 and hyperglycemia and atrial flutter 03/29/25
Previous admission for SBO and atrial flutter 03/10/2024 until 03/13/2024
Type 2 diabetes, HgbA1c 16%
Persistent atrial flutter, present since at least 02/2024
Not chronically anticoagulated, unable to afford OAC as an outpatient
h/o hypertrophic cardiomyopathy
LVOT 147 mmHg at rest, increased to 229 mmHg with Valsalva by echo 03/11/2024
h/o Dzkfo-Zspvialzx-Kqrtq syndrome status post attempted ablation, accessory pathway currently conduction intermittently only
HTN
cLBBB
Mild to mod MR by echo 05/16/22, stable on echo 03/11/2024
DM 2
Depression
Hypercholesterolemia
Ongoing tobacco abuse
History of sleep apnea
Lexiscan nuclear stress test 07/19/2017: Moderate area of mildly decreased perfusion that is minimally reversible in the inferior lateral, inferior, inferior septal segments consistent with soft tissue attenuation, EF 55%, dilated left ventricle
Echo 07/19/2017:�EF 70 to 75%, severe LVH, stage I DD, LVOT gradient peak gradient 82 mmHg, moderate dilated LA, normal RA, thickened MV with moderate systolic anterior motion in the anterior leaflet and moderate eccentric posterior directed MR.
Calcified AV.� Trace AI.� Trace TR, PAP 20 to 25 mmHg
Echo 05/16/22: EF 55-60%, normal wall motion, severe conc LVH, LVOT gradient 102 mmHg at rest that increases 177 mmHg with Valsalva, stage I diastolic dysfunction, mild aortic regurgitation, mildly dilated aortic root
Echo 03/11/2024: EF 50 to 55%, LVOT 147 that increases to 229 with Valsalva. Severe concentric LVH biatrial enlargement. Mild to moderate MR. Mild to moderate AI. Moderate TR, PAP 20 to 25 mmHg
Echo 04/01/2025: pending
Plan:
-HR is elevated to 122 in the room with me 04/01/25, the patient denies any palpitations, chest pain, SOB, orthopnea or edema.
-ECG 04/01/2025 reviewed by me looks like atrial flutter with HR 93 bpm. QTc has shortened to 447 ms from 513 ms 03/30/2025.
-Patient with persistent atrial flutter. We were previously unable to perform TAMIKO/CV as his admission 02/2024 was due to SBO and outpatient care complicated by lack of medical insurance. The plan remains to check echo and if EF is reduced then make
an attempt at TAMIKO/CV. If EF is otherwise preserved then we will have to discuss ongoing management with rate control and OAC vs an attempt at rhythm control to see if there is any change in his symptoms, but otherwise he is asymptomatic with atrial
flutter. We will discuss again with patient once we have results of echo.
-Patient plans to sign up for Medicare when he turns 65 in July, but until then he will not have the ability to pay for OAC. If patient were to have TAMIKO/CV this admission we could use a 30-day free Eliquis card to get us through that month.
Otherwise he will likely be unable to afford both his insulin and generic Pradaxa which would be the only generic DOAC available. He would be unable to use warfarin as he would have to pay [id number] for INRs.
-Echo pending, ordered by me
-Increase Toprol XL to 50 mg daily and then increase as BP tolerates, ordered by me
-Continue Lovenox 40mg sc QPM, but consider changing to Eliquis 5 mg BID (age 64 and wt 70kg) and then we could use the 30 day free sample card upon d/c
-Patient is currently attempting to quit nicotine use and would not like NRT at this time, tolerating well with no withdrawal symptoms
-Patient also with history of hypertrophic cardiomyopathy gradients as outlined above, recheck gradients on echo
HPI: Patient came to the ER 03/29/2025 with increased urine output and generalized weakness and was admitted with type 2 diabetes that was [id number] with hyperglycemia and cardiology is consulted for persistent atrial flutter seen on ECG.
Patient was admitted to [facility] 03/10/2024 until 03/13/2024 with SBO and was newly diagnosed with atrial flutter at that time. TAMIKO/CV was deferred due to the SBO, but unfortunately the patient did not have medical insurance and while he was able to
follow-up in the office once 04/08/2024 he did not have additional follow-up because he could not afford it and he also could not afford an elective outpatient TAMIKO/CV. When he was last seen in the office on 04/08/2024 he reported that he was taking
his Xarelto 20 mg daily and at that time we increased his Toprol XL to 50 mg daily. Patient says at this point he is not taking any medications. He thinks he stopped taking his Xarelto because it made him feel poorly, but he is really not sure.
ECG on admission shows atrial flutter with HR 103 bpm.
--- NOTE | 2025-04-01 10:37 | CM ---
Addendum entered by Jodi Hedrick RN 04/01/25 17:25:
Spoke with patient who was preparing for discharge. The patient states he feels ready to go home today. Reviewed his d/c med list with him- he feels he can afford what was ordered. The patient will drive himself home.
Plan home today.
Original Note:
Patient with Dx DM2 with hyperglycemia, Rapid Atrial flutter/WPW. Room air. Receiving SQ Insulin. Per nurse; ambulatory in room.
Spoke with Mari [facility]; the patient will not qualify for Medicaid as he is over-income.
Spoke with patient and daughter Katja;
provided update that we were informed by [facility] Rep that patient is over-income for Medicaid.
Patient aware that he can apply for Medicare 2 months before his birthday in Jul.
Patient states he can afford the 70/30 Insulin (around $60 per prior CM notes) at [facility], however the cost of additional meds would need to be checked. Katja was advised to register with [employer] or other discount program for additional
savings.
Patient states he was issued a glucometer by the development educator.
Plan assist patient with cost savings for d/c meds as needed.
Plan home.
--- NOTE | 2025-04-01 12:01 | PN.CDI ---
CDI
- -
CDI:
Physician Documentation Request
Admit Date: 03/30/25 01:31
Dear Doctor Audrey,
Patient admitted for management of DM2 with hyperglycemia.
Sodium results:
Laboratory Tests
03/29/25 03/30/25 04/01/25
20:04 00:38 03:00
Sodium 129 L 134 L 135
Could you please provide a diagnosis that supports the above lab abnormalities and additional evaluation/monitoring:
Hyponatremia
abnormal lab value clinically insignificant
Other
Use of terms such as suspected, likely, concern for, or probable (associated with a specific diagnosis that is being evaluated, monitored, or treated as if it exists) are acceptable and can be coded in the inpatient setting, when documented at the
time of discharge.
Thank you,
Britt Combs RN, BSN
CDI Specialist
tiger text
Please use your independent medical judgment in providing your response.
[2025-04-01 12:26] LABS: Glucose - Point of Care 327 mg/dl (70-99)
--- NOTE | 2025-04-01 14:05 | W.DS.TRANS ---
DC Summary - Cigarette Maker
-
Discharge Instructions:
Discharge Diagnosis/Procedures Uncontrolled diabetes, rapid atrial flutter
Diet Diabetic, Carb Controlled
Activity As tolerated
Driving Restrictions As prior to admission
Bathing Restrictions None
Instructions:
Stand-Alone Forms:
Changes to Home Medications: No
Discharge Medications:
DC Medications w/original date entered in [employer]
insulin syringe-needle U-100 0.5 mL 29 gauge x 1/2' (Insulin Syringe) #100 ea 03/13/24
aspirin 81 mg tablet 81 mg PO DAILY #60 tabs 04/01/25
insulin NPH-regular 70-30 U-100 insulin 100 unit/mL subcutaneous pen (Novolin 70-30 FlexPen U-100 Insulin) 20 unit (0.2 mL) SC BID@0800,1700 #5 mL 04/01/25
metformin 500 mg tablet 500 mg PO BID@0800,1700 #60 tabs 04/01/25
metoprolol succinate 50 mg tablet,extended release 24 hr 50 mg PO DAILY #30 tabs 04/01/25
pen needle, diabetic 32 gauge x ' (Annelise 2nd Gen Pen Needle) #100 ea 04/01/25
Home Medication Changes
Pending Results: No
--- NOTE | 2025-04-01 17:06 | W.PN.UPDATE ---
Update Note
Progress Note Update
Called patient in the room to update him on the results of echo, EF remains preserved. Patient is not interested in rhythm control therapy at this time so we will continue with rate control in the form of Toprol-XL. Cardiology follow-up arranged.
Patient is stable for discharge from cardiac standpoint and communicated with hospitalist attending.
[2025-04-01] MEDS: NOVOLOG FLEXPEN-MODERATE RESISTANCE SC ×2 (17:39→17:43)
[2025-04-01 17:48] LABS: Glucose - Point of Care 280 mg/dl (70-99)
--- NOTE | 2025-04-01 18:37 | PTCARENOTE ---
Patient was discharged. Patient left with all known belongings. Discharge instructions reviewed and all questions answered. Patient escorted via wheel chair and staff member to main lobby.
== END 2025-04-01 18:24 | disposition home or self-care (01) | DRG 638 ==
LOC: IMU 01:31
PROVIDERS: Hospitalist; Nurse Practitioner Family; ADMITTING PHYSICIAN Student in an Organized Health Care Education/Training Program; ATTENDING PHYSICIAN Hospitalist; CONSULT PHYSICIAN Internal Medicine Cardiovascular Disease; EMERGENCY PHYSICIAN Student in an Organized Health Care Education/Training Program
DX: E11.65 Type 2 diabetes mellitus with hyperglycemia (principal); E87.1 Hypo-osmolality and hyponatremia; I48.92 Unspecified atrial flutter; E87.6 Hypokalemia; I45.6 Pre-excitation syndrome; R32 Unspecified urinary incontinence; Z59.71 Insufficient health insurance coverage; I25.10 Atherosclerotic heart disease of native coronary artery without angina pectoris; I10 Essential (primary) hypertension; F17.200 Nicotine dependence, unspecified, uncomplicated; Z91.148 Patient's other noncompliance with medication regimen for other reason; Z91.128 Patient's intentional underdosing of medication regimen for other reason; F32.A Depression, unspecified; E78.00 Pure hypercholesterolemia, unspecified; Z79.4 Long term (current) use of insulin; Z79.01 Long term (current) use of anticoagulants; G47.33 Obstructive sleep apnea (adult) (pediatric); I48.91 Unspecified atrial fibrillation; T45.516A Underdosing of anticoagulants, initial encounter; Z88.5 Allergy status to narcotic agent; Z96.641 Presence of right artificial hip joint
CPT/HCPCS: 80048; 80053; 81003; 81015; 82010; 82805; 82947; 82962; 83036; 83735; 85025; 85027; 85610; 85730; 93005; 93306; 96361; 96365; 96366; 96372; 96375; 99284; 99406

== ENCOUNTER 2025-05-15 18:51 | Inpatient (IN) | payer OTHER, SELFPAY ==
[2025-05-15] VITALS (19 sets, daily range): BP systolic 82–146; BP diastolic 51–91; BMI 23.9; BMI 23.0
[2025-05-15 12:40] LABS: Hematocrit 43.3 % (39.0-52.0); Hemoglobin 14.7 g/dL (13.0-18.0); Mean Corp Hgb Conc. 33.9 g/dL (33.0-37.0); Mean Corpuscular Volume 88.2 fL (80.0-94.0); Nucleated Red Blood Cells % 0 % (-); Platelet Count 250 10^3/uL (130-400); Red Cell Dist. Width 12.8 % (11.5-14.5)
[2025-05-15 12:49] LABS: ALT (SGPT) 16 U/L (0-50); AST (SGOT) 17 U/L (17-59); Albumin 3.9 g/dl (3.5-5.0); Alkaline Phosphatase 102 U/L (38-126); Blood Urea Nitrogen 14 mg/dl (9-20); Calcium 9.7 mg/dl (8.4-10.2); Carbon Dioxide 29 mmol/L (22-30); Chloride 99 mmol/L (98-107); Glucose 388 mg/dl (70-99); Potassium 5.5 mmol/L (3.5-5.1); Sodium 133 mmol/L (135-145); Total Protein 6.3 g/dl (6.3-8.2); eGFR > 60.00
[2025-05-15] MEDS: NSS 1000 IV ×3 (14:02→20:26)
--- NOTE | 2025-05-15 14:29 | ED.GENMED ---
History of Present Illness
General
Chief Complaint: Skin Problem
Source: patient
Exam Limitations: none
Time Seen by Provider: 05/15/25 13:31
Nursing documentation reviewed up to this point in time: agreed with
History of Present Illness
History of Present Illness:
The patient is a pleasant 64-year-old man with a past medical history of insulin-dependent diabetes who reports gradual onset of bump under his left armpit which is now become painful, red and swollen over the last 2 to 3 days. Patient denies
fevers and chills. Patient reports his blood sugar is elevated because he admits he did not take his insulin last night or this morning. He reports he last took insulin at 11:30 AM today. Patient reports he has never had an abscess before. He
denies injury to the area. Patient reports that the pain is mild to moderate and worse when he touches the area. Patient denies chest pain shortness of breath
Past History
Past History
ED Past Medical History: Arrthythmia (wpw), CAD, HTN, Hypercholesterolemia, NIDDM and Other (HOCM, WPW, LBBB, MR, BLAS, Migraines, )
ED Past Surgical History: Cardiac (ablation) and Orthopedic (Right hip replacement, Right hand surgery)
Social History
Tobacco: Smoker
Alcohol: None
Drug: None
Personal:
Living: with family
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
Family History
Family History: Other (Noncontributory)
Review of Systems
Review of Systems
Allergies reviewed?: Yes
All Other Systems: ROS reviewed and negative except as documented in HPI and ROS
Constitutional: Reports no symptoms
EENT: Reports no symptoms
Respiratory: Reports no symptoms
Cardiac: Reports no symptoms
ABD/GI: Reports no symptoms
: Reports no symptoms
Musculoskeletal: Reports no symptoms
Skin: Reports other
Neurological: Reports no symptoms
Endocrine: Reports no symptoms
Hematologic/Lymphatic: Reports no symptoms
Psychiatric: Reports no symptoms
Phy Exam
Physical Exam
Physical Exam:
Physical Exam
General: no apparent distress, not acutely ill. Well appearing
Neck: supple. no meningeal signs. normal psoterior pharynx
Heart: Tachycardic, irregular
Lungs: no acute respiratory distress. clear bilaterally
Abdomen: normal bowel sounds. not tender. no CVAT
Neuro: alert and oriented. no focal neurological deficits
Skin: Fluctuant, erythematous and tender lump in left axilla area surrounded by 6 cm x 4 cm area of skin warmth and erythema
Psychiatric: well kept. interactive and cooperative
Extremities: no edema. no calf tenderness. negative homans. good distal pulses
Course
Orders/Labs/Results
Orders:
Orders
05/15/25 12:21
Complete Blood Count/With Diff Urgent
Comprehensive Metabolic Panel Urgent
05/15/25 13:36
Electrocardiogram (*1) Urgent
Reason for Study: Tachycardia
EKG- Treatment ONCE
05/15/25 13:47
0.9% Sodium Chloride 1000 ml [Nss] 1,000 ml IV BOLUS
05/15/25 14:08
Wound Culture [Wound/Abscess/Other Culture] Urgent
LISA Source: Axilla
Specimen Description:
Date Specimen was Collected: 05/15/25
Time Specimen was Collected: 14:06
Comment: left axilla
05/15/25 14:15
Acetaminophen [Tylenol] 1,000 mg PO NOW STA
05/15/25 14:33
Clindamycin 600 mg/50 ml [Cleocin] 600 mg in 50 ml IV NOW
05/15/25 15:39
Glucose Urgent
Potassium Urgent
05/15/25 15:47
Electrocardiogram (*1) Urgent
Reason for Study: Tachycardia
EKG- Treatment ONCE
05/15/25 17:48
0.9% Sodium Chloride 1000 ml [Nss] 1,000 ml IV BOLUS
05/15/25 17:49
Vancomycin [Vancocin] 2,000 mg 0.9% Sodium Chloride 500 ml [Nss] 500 ml IV NOW
05/15/25 17:50
Admit/Transfer Patient As Directed
Co-Sign Provider:
Level of Care: Inpatient admission
Assign to:: Telemetry
Physician / Group: Jossie
Diagnosis: Cellulitis, subaxillar abscess
Reason for Telemetry: Arrhythmia
Date to Stop Telemetry: 05/18/25
Time to Stop Telemetry: 11:00
Reason for Hospitalization: Cellulitis, subaxillar abscess
Expected length of stay greater than two midnights?: Yes
ELOS- Estimated Length of Stay in days: 2
I certify the patient meets the requirements for IP care: Yes
VANCOMYCIN Pharmacy to Dose [VANCOCIN Pharmacy to Dose] 1 each Pharmacy To Prepare [Call Pharmacy To Prepare] 0 ml IV PER PROTOCOL
PRN Pain Medication Management As Directed
May give lesser potent ordered pain med per pt: Yes
preference::
Protocol:: Medication orders for pain may be administered in a
manner that supports deferring to patient preference
when the pt is:
- Requesting an ordered lesser potent pain medication.
Least to most potent pain medications are defined
as: acetaminophen < NSAID < tramadol < opioids
(morphine, oxycodone, hydromorphone).
- Requesting a lesser dose of the same medication IF
ORDERED.
- Requesting a less intrusive route of administration
if both routes are prescribed by the provider (PO <
IV).
05/15/25 17:51
Code Status As Directed
Resuscitation Status: Full Code
05/15/25 18:01
Piperacillin/Tazo 3.375 Gram [Zosyn] 3.375 gram in 50 ml IV NOW
05/15/25 18:06
CARDIOLOGY CONSULT Routine
Consulting Provider: Ramón Sparrow
Was physician already notified: Yes
Reason for consult: afib, aflutter not on AC
05/15/25 18:31
Lactate Level [Lactic Acid] Q6H
Blood Culture Q30M
LISA Source: Blood/Venous
Specimen Description:
Blood Culture Q30M
LISA Source: Blood/Venous
Specimen Description:
Vancomycin MRSA PCR Screen Routine
LISA Source: Nose
Specimen Description:
05/16/25 00:00
Lactate Level [Lactic Acid] Q6H
Piperacillin/Tazo 3.375 Gram [Zosyn] 3.375 gram in 50 ml IV Q6H
05/18/25 11:00
DC Protocol for Telemetry ONCE
Abnormal Lab Results
05/15/25 05/15/25 05/15/25
12:21 15:39 18:31
WBC 12.3 H 10^3/uL
(4.8-10.8)
MPV 10.8 H fL
(7.4-10.4)
Absolute Neuts (auto) 10.5 H 10^3/uL
(1.4-6.5)
Absolute Lymphs (auto) 0.9 L 10^3/uL
(1.2-3.4)
Absolute Monos (auto) 0.7 H 10^3/uL
(0.1-0.6)
Neutrophils % 85.4 H %
(42.2-75.2)
Lymphocytes % 7.2 L %
(20.5-51.1)
Sodium 133 L mmol/L
(135-145)
Potassium 5.5 H mmol/L
(3.5-5.1)
Creatinine 0.5 L mg/dL
(0.7-1.3)
Glucose 388 H mg/dl 199 H mg/dl
(70-99) (70-99)
Lactic Acid 2.7 H mmol/L
(0.7-2.0)
05/15/25 12:21
05/15/25 15:39
Vital Signs
Initial and Last Documented VS:
Initial Vital Signs
Temp Pulse Resp BP Pulse Ox
98.4 F 122 18 146/91 100
05/15/25 12:14 05/15/25 12:14 05/15/25 12:14 05/15/25 12:14 05/15/25 12:14
Last Documented Vital Signs
Temp Pulse Resp BP Pulse Ox
98.4 F 109 18 101/63 98
05/15/25 12:14 05/15/25 13:41 05/15/25 18:45 05/15/25 19:15 05/15/25 19:12
Procedures
Incision/Drainage/Joint Aspiration
Left:
Anethesia: 1% Lidocaine with Epi
Type of procedure: incise and drain
Nature of site: abscess
Description of abscess: less than 3cm
Loculations broken up: Yes
How much fluid was obtained?: small amount
Fluid description: blood tinged and yellowish
Treatment: packed with gauze and antibiotics started
Additional information:
Location of incision and drainage was left axilla area
MDM/Problems Addressed
Differential Diagnosis Includes:
Infected left axilla cyst, abscess, cellulitis
MDM/Problems Addressed:
Patient presents with acute red, swollen and painful soft tissue lump with surrounding redness
Chronic conditions affecting care: DM
Acute Exacerbation and/or Progression of Chronic Illness:
Patient is acutely hyperglycemic, likely due to mild infection as well as admittedly not taking insulin both last night and this morning. Labs do not suggest DKA patient appears nontoxic and well
*Pulse Oximetry
SaO2: 98
Oxygen Mode of Delivery: Room air
Patient hypoxic: no
Comment: 98% on room air
*EKG
Interpreted by ED Provider?: Yes
Interpretation: abnormal
Comparison EKG: changes noted
Rate: tachycardiac
Rhythm: a-fib
Sherman: normal axis
Interval: normal interval
QRS Pattern: wide non-specific
Ischemia: non-specific ST changes
*Commodity Buyer Interpretation
Rate: tachycardiac
Interpretation: abnormal
Rhythm: atrial flutter
*Critical Care Note
Total Time (30-74mins, 75-104mins- exclusive of procedures): 42 minutes
comment:
42 minutes critical care given to patient including reviewing his lab work, counseling the patient and discussing risks and benefits of the incision and drainage of left axillary abscess, as well as monitoring his blood pressure
Data Reviewed
Review of Other/Old Records Reveals: Discharge Summary (Discharge summary reviewed from March 2025 when patient was admitted for hyperglycemia)
Update Note
Update Note:
Patient became increasingly hypotensive, however, was fully awake, alert and oriented. Given patient has an elevated white blood cell count and has hypotension, I am concerned about sepsis.
ED Attending Note
-
Portions of this chart may have been created with voice recognition software.� Occasional wrong word or��sound alike� substitutions may have occurred due to the inherent limitations of voice recognition software.
Discharge Plan
Departure
Patient Disposition: Admit
Date of Disposition: 05/15/25
Time of Disposition: 17:21
Admit to: Telemetry
Presentation/result/management discussed w/ accepting MD/DO: Hospitalist
Patient with high blood pressure during this ER visit?: No
Condition: Fair
Covid-19: Not Applicable
Discharge Problem:
Infected left abscess, Acute hypotension
Interventions
Interventions:
*Risk Screen - Suicide Last Done: 05/15/25 12:14
*General Assessment Last Done: 05/15/25 12:14
*Neglect/Abuse Screening Last Done: 05/15/25 12:14
*ED- Fall Risk Assessment Last Done: 05/15/25 13:25
*ED COVID-19 Vaccine History Last Done: 05/15/25 13:25
ED-Skin Assessment Last Done: 05/15/25 13:25
Discharge Date and Time
Discharge Date/Time: 05/15/25 19:36
[2025-05-15] MEDS: TYLENOL 1000 MG PO (14:35)
[2025-05-15] MEDS: CLEOCIN 50 IV (15:09)
[2025-05-15 16:37] LABS: Glucose 199 mg/dl (70-99); Potassium 4.2 mmol/L (3.5-5.1)
--- NOTE | 2025-05-15 17:54 | HPS.HSE ---
Family Physician
-
Family Physician: MARY Marte
Chief Complaint
-
L subaxillary abscess
History of Present Illness
64yo M with PMHx of Aflutter, DM, CAD, WPW syndrome, HTN, hypertrophic CM came with 2 days of L subaxillary bump with redness. Does not report trauma to the area. Found subq abscess in ED that was drained, however also became hypotensive with
concern for early developign sepsis.
Medical History
Past Medical History
Past Medical History: Reports Other
Additional Past Medical History:
see above
Past Surgical History: Reports None
Social History
Tobacco: Smoker
Alcohol: None
Drug: None
Family History
Family History: Not pertinent
Allergies / Home Medications
Allergies reflects when Allergies were last updated in [facility].
Home Medications with original date entered in [facility]
Allergy/Medication List:
Allergies
Allergy/AdvReac Type Severity Reaction Status Date / Time
acetaminophen (From Percocet) Allergy QUICK Verified 05/15/25 17:52
TEMPER
atorvastatin (From Lipitor) Allergy FLU S/S Verified 05/15/25 17:52
codeine (Codeine) Allergy Nausea / Verified 05/15/25 17:52
Vomiting
oxycodone Allergy Itching Verified 05/15/25 17:52
pravastatin (From Pravachol) Allergy FLU S/S Verified 05/15/25 17:52
Home Medications
aspirin 81 mg tablet 81 mg PO DAILY #60 tabs 04/01/25
insulin NPH-regular 70-30 U-100 insulin 100 unit/mL subcutaneous pen (Novolin 70-30 FlexPen U-100 Insulin) 20 unit (0.2 mL) SC BID@0800,1700 #5 mL 04/01/25
metformin 500 mg tablet 500 mg PO BID@0800,1700 #60 tabs 04/01/25
metoprolol succinate 50 mg tablet,extended release 24 hr 50 mg PO DAILY #30 tabs 04/01/25
Review of Systems
-
History Source: Patient
A 12 point ROS was completed and negative except as noted: Yes
Skin: Reports See HPI
Physical Exam
Vital Signs
Vital Signs
Temp Pulse Resp BP Pulse Ox
98.4 F 109 16 91/57 81
05/15/25 12:14 05/15/25 13:41 05/15/25 13:41 05/15/25 16:51 05/15/25 16:39
Physical Exam
General: No Apparent Distress, Comfortable and Conversant
HEENT: NormoCephalic, Anicteric and Moist mucous membranes
Respiratory: Clear; No Wheezes, Rhonchi or Crackles
Cardiac: S1/S2 and Irregular Rhythm; No Tachycardia
GI: Soft, Non Tender and Non Distended
Genito-urinary: No costovertebral tender
Musculoskeletal: No Clubbing, No Cyanosis and No Edema
Skin: Other (L sub axillary redness with skin induration and draining tract )
Neuro: Awake, Alert, Oriented and AO x 3
Psych: Calm
Laboratory Results
-
05/15/25 12:21
05/15/25 15:39
Laboratory Results
Total Bilirubin 1.1 mg/dl (0.2-1.3) 05/15/25 12:21
AST 17 U/L (17-59) 05/15/25 12:21
ALT 16 U/L (0-50) 05/15/25 12:21
Alkaline Phosphatase 102 U/L (38-126) 05/15/25 12:21
Data Reviewed
-
Lab Data: Labs Reviewed by me
Impression/Plan
-
A/P:
#Cellulitis, L subaxillary abscess with early sepsis on admission
s/p I&D in ED
Wound Cx sent
BCx
Vanco/Zosyn
MRSA PCR
IVF 2L bolus+Sanding, serial lactate
#DM type 2 with neuropathy
cont home insulin
Check HgbA1c
Accuchekcs, Insulin SS, DM diet
#Afib, a.flutter
now not on AC, only ASA for CAD
previously on Coumadin
Cardio consult
#Essential HTN
#CAD, stable
cont home meds
DVT ppx Hep
Full code
I have spent at least 77min reviewing chart, test results, communication with consultants and providing direct patient care
[2025-05-15] MEDS: ZOSYN 50 IV (18:16)
[2025-05-15] MEDS: VANCOCIN 540 MG IV (18:40)
--- NOTE | 2025-05-15 20:35 | PHA.VAN.IN ---
Assessment
- Assessment
Renal Function: Appears similar to baseline
Concomitant Antimicrobials: ZOSYN
AUC Dosing Plan
- Dosing Variables
Dosing Weight (kg): 72.6
Dosing CrCl (ml/min): 125
Vd coefficient (L/kg): 0.7
- Empiric Dosing
Initial / Loading Dose: 2000 MG ~ 1845
Maintenance Regimen: 1250 MG IV Q12H
Estimated AUC (mcg*h/mL): 492
Estimated Peak (mcg*h/mL): 33.8
Estimated Trough (mcg/ml): 10.9
Estimated Half Life (H): 6.4
- Monitoring
No levels ordered at this time: Consider levels in the next few days
Pharmacokinetics Vancomycin I
- -
Patient Age: 64
Patient Sex: Male
Vancomycin Day #: 1
Indication: Skin And Soft Tissue
Requesting Provider: Dr Jossie Mak
Height / Weight:
Height 5 ft 10 in
Actual Weight 72.631 kg
Pertinent Past Medical History: NIDDM
- Vital Signs / Lab Results
Temp Pulse Resp BP Pulse Ox
98.5 F 103 18 115/67 99
05/15/25 19:49 05/15/25 19:49 05/15/25 19:49 05/15/25 19:49 05/15/25 19:49
Lab Results - Hematology
05/15/25
12:21
WBC 12.3 H
Lab Results - Chemistry
05/15/25
12:21
BUN 14
Creatinine 0.5 L
Albumin 3.9
05/15/25
18:31
Lactic Acid 2.7 H
Microbiology Results
05/15/25 14:08 Gram Stain - Preliminary
Axilla
[2025-05-16] VITALS (7 sets, daily range): BP systolic 96–125; BP diastolic 59–76
[2025-05-16 00:14] LABS: Glucose - Point of Care 84 mg/dl (70-99)
[2025-05-16] MEDS: ZOSYN 50 IV ×5 (00:19→23:48)
[2025-05-16] MEDS: HEPARIN 5000 UNITS SC ×4 (00:19→23:48)
[2025-05-16] MEDS: VANCOCIN 275 MG IV ×2 (06:00→17:25)
--- NOTE | 2025-05-16 06:48 | CON.CAR ---
Consultation
Consultation Request
Date/Time Consultation Requested: May 15, 2025
Date/Time Consultation Performed: May 16, 2025
Requesting Provider: Hospitalist
Performing Provider: Kyara
Reason for Consultation: Atrial flutter
Medical History
-
Chief Complaint: Atrial flutter
History of Present Illness:
64-year-old male who presents with elevated white count, left axillary pain with I&D of abscess in the emergency room and elevated lactic acid noted. He was feeling unwell for a few days. He was recently admitted and followed by our service and in
early to mid March for atrial flutter with modestly elevated rates and prior history of HOCM normal ejection fraction and elevated outflow tract gradients. Unfortunately he has difficulty pain for medications and was recommended for Coumadin but he
is unable to either take or afford. 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 With his hypertrophic cardiomyopathy he
also has associated moderate mitral digitation and mild aortic stenosis. He does not report any cardiovascular symptoms at this time. He is applying for Medicare per the notes 2 months early and would be eligible in May 2025 and some
discussion was also documented about consideration of the dabigatran given its now generic.
Past Medical History
Past Medical History: Arrhythmias and Other (Abscess)
Social History
Tobacco: Former Smoker
Alcohol: None
Drug: None
Personal: Other
Living: Other
Employment: Employed
Family History
Family History: Reviewed & Not Pertinent
Allergies / Home Medications
Allergy/AdvReac Type Severity Reaction Status Date / Time
acetaminophen (From Percocet) Allergy QUICK Verified 05/15/25 17:52
TEMPER
atorvastatin (From Lipitor) Allergy FLU S/S Verified 05/15/25 17:52
codeine (Codeine) Allergy Nausea / Verified 05/15/25 17:52
Vomiting
oxycodone Allergy Itching Verified 05/15/25 17:52
pravastatin (From Pravachol) Allergy FLU S/S Verified 05/15/25 17:52
�Medication �Instructions �Recorded �Confirmed �Type
aspirin 81 mg tablet 81 mg PO DAILY #60 tabs 04/01/25 05/15/25 Rx
insulin NPH-regular 70-30 U-100 20 unit (0.2 mL) SC BID@0800,1700 04/01/25 05/15/25 Rx
insulin 100 unit/mL subcutaneous #5 mL
pen (Novolin 70-30 FlexPen U-100
Insulin)
metformin 500 mg tablet 500 mg PO BID@0800,1700 #60 tabs 04/01/25 05/15/25 Rx
metoprolol succinate 50 mg 50 mg PO DAILY #30 tabs 04/01/25 05/15/25 Rx
tablet,extended release 24 hr
Review of Systems
-
All other systems: Negative unless noted
Respiratory: No Symptoms
Cardiac: No Symptoms
Physical Exam
Vital Signs
Temp Pulse Resp BP Pulse Ox
98.6 F 104 20 103/61 99
05/16/25 03:20 05/16/25 03:20 05/16/25 03:20 05/16/25 03:20 05/16/25 03:20
Physical Exam
General: Well Developed and Well Nourished
HEENT: Normocephalic and Anicteric
Respiratory: Clear
Cardiac: Irregular Rhythm and Murmur
Breast: Deferred by me
GI: Soft, Non Tender and Non Distended
Rectal: Deferred by Provider
Genito-urinary: Clear Urine
Musculoskeletal: No Clubbing and No Cyanosis
Skin: Warm and Dry
Neuro: Awake, Alert and Oriented
Hematologic/Lymphatic: No Lymphadenopathy
Psych: Calm
Impression / Plan
-
PCP: Garret LOFT RIGGER
Water Technician: Dr. ZIGGY Smith
Impression:
Admitted with left axillary abscess
Leukocytosis
Elevated lactic acid
Persistent atrial flutter
Previous admission for SBO and atrial flutter 03/10/2024 until 03/13/2024
Type 2 diabetes, HgbA1c 16%
Persistent atrial flutter, present since at least 02/2024
Not chronically anticoagulated, unable to afford OAC as an outpatient
h/o hypertrophic cardiomyopathy
LVOT 147 mmHg at rest, increased to 229 mmHg with Valsalva by echo 03/11/2024h/o [id number]-Dtgep syndrome status post attempted ablation, accessory pathway currently conduction intermittently only
HTN
cLBBB
Mild to mod MR by echo 05/16/22, stable on echo 03/11/2024
DM 2
Depression
Hypercholesterolemia
Ongoing tobacco abuse
History of sleep apnea
Lexiscan nuclear stress test 07/19/2017: Moderate area of mildly decreased perfusion that is minimally reversible in the inferior lateral, inferior, inferior septal segments consistent with soft tissue attenuation, EF 55%, dilated left ventricle
Echo 07/19/2017:�EF 70 to 75%, severe LVH, stage I DD, LVOT gradient peak gradient 82 mmHg, moderate dilated LA, normal RA, thickened MV with moderate systolic anterior motion in the anterior leaflet and moderate eccentric posterior directed MR.
Calcified AV.� Trace AI.� Trace TR, PAP 20 to 25 mmHg
Echo 05/16/22: EF 55-60%, normal wall motion, severe conc LVH, LVOT gradient 102 mmHg at rest that increases 177 mmHg with Valsalva, stage I diastolic dysfunction, mild aortic regurgitation, mildly dilated aortic root
Echo 03/11/2024: EF 50 to 55%, LVOT 147 that increases to 229 with Valsalva. Severe concentric LVH biatrial enlargement. Mild to moderate MR. Mild to moderate AI. Moderate TR, PAP 20 to 25 mmHg
Echo 04/01/2025: pending
Plan:
- Difficult situation and that he has difficulty paying for medications and I also wonder whether compliance is an issue. Continue current medications as ordered as his heart rates are in the high 90s on average. Once he establishes Medicare
hopefully as an outpatient he can take some of these medications long-term. Continue metoprolol for rate control and would start Pradaxa 150 mg twice daily while here to see if he can tolerate and with the reduced cost of a generic perhaps he can
continue this at discharge.
-Ultimately would consider TAMIKO guided cardioversion to restore sinus rhythm given his hypertrophic cardiomyopathy would be better to have him in sinus.
-Could consider amiodarone as adjunct rate control and ultimately for rhythm control yet as he is admitted for elevated lactic acid leukocytosis and axillary abscess drainage can hold off at this time as he is relatively rate controlled
-Patient with persistent atrial flutter. We were previously unable to perform TAMIKO/CV as his admission 02/2024 was due to SBO and outpatient care complicated by lack of medical insurance.
-Patient plans to sign up for Medicare when he turns 65 in July, but until then he will not have the ability to pay for OAC. If patient were to have TAMIKO/CV this admission we could use a 30-day free CSID card to get us through that month.
Otherwise he will likely be unable to afford both his insulin and generic Pradaxa which would be the only generic DOAC available. He would be unable to use warfarin as he would have to pay [id number] for INRs.
-Continue Toprol XL
Data Reviewed
-
EKG: Tracing Personally Visualized and interpreted
Radiology: Image Personally Visualized and interpreted
Labs: Labs Reviewed by me
Old Records: Reviewed
[2025-05-16 07:48] LABS: Glucose - Point of Care 133 mg/dl (70-99)
[2025-05-16] MEDS: LOW STRENGTH ASPIRIN 81 MG PO (07:49)
[2025-05-16] MEDS: NOVOLOG MIX 70/30 FLEXPEN 20 UNITS SC ×2 (07:55→16:46)
[2025-05-16] MEDS: NOVOLOG FLEXPEN-MODERATE RESISTANCE SC ×2 (07:55→12:08)
--- NOTE | 2025-05-16 07:59 | W.PN.HOSP.TC ---
Today's Communication/Plan
-
redness decreased, but persistent induration with concern for residual collection - GenSx consult for eval if additional I&D needed
cont Abx
Noted Cardio reccs
Toprol reduced - watch HR
Assessment / Plan
Assessment / Plan
64yo M with PMHx of Aflutter, DM, CAD, WPW syndrome, HTN, hypertrophic CM came with 2 days of L subaxillary bump with redness. Does not report trauma to the area. Found subq abscess in ED that was drained, however also became hypotensive with
concern for early developing sepsis.
A/P:
#Cellulitis, L subaxillary abscess with early sepsis on admission
s/p I&D in ED
Wound Cx sent
BCx
Vanco/Zosyn
MRSA PCR
IVF 2L bolus+Sanding, serial lactate
#DM type 2 with neuropathy
cont home insulin
Check HgbA1c
Accuchekcs, Insulin SS, DM diet
#Afib, a.flutter
now not on AC, only ASA for CAD
previously on Coumadin
Cardio consult: limited by absence of insurance, cont BB and consider to start Pradaxa
Toprol decreased to 25mg due to persistent borderline-low BP
#Essential HTN
#CAD, stable
cont home meds
DVT ppx Hep
Full code
I have spent at least 57min reviewing chart, test results, communication with consultants and providing direct patient care
Anticipated Discharge: > 48 hours
Subjective/Interval History
-
Date of Service: May 16, 2025
Objective Data
-
Labs:
Laboratory Results
05/16/25
07:40
WBC Pending
Hgb Pending
Hct Pending
Plt Count Pending
Sodium Pending
Potassium Pending
Chloride Pending
Carbon Dioxide Pending
BUN Pending
Creatinine Pending
Glucose Pending
Calcium Pending
Total Bilirubin Pending
AST Pending
ALT Pending
Alkaline Phosphatase Pending
Vital Signs:
Vital Signs
Temp Pulse Resp BP Pulse Ox
98.1 F 89 16 96/59 98
05/16/25 07:39 05/16/25 07:39 05/16/25 07:39 05/16/25 07:39 05/16/25 07:39
I&O
05/15/25 05/16/25 05/17/25
06:59 06:59 06:59
Intake Total 0 / 0
Balance 0 / 0
Review of Systems
-
History Source: Patient
All other systems: Reviewed and negative
Physical Exam
-
General: Comfortable
HEENT: Normocephalic
GI: Soft
Skin: Other (persistent purulemnt output and subq collection under L armpit)
Neuro: Awake, Alert, Oriented and AO x 3
Psych: Calm
[2025-05-16] MEDS: TOPROL XL 25 MG PO ×2 (08:05→12:14)
[2025-05-16 08:16] LABS: Hematocrit 39.0 % (39.0-52.0); Hemoglobin 12.8 g/dL (13.0-18.0); Mean Corp Hgb Conc. 32.8 g/dL (33.0-37.0); Mean Corpuscular Volume 89.9 fL (80.0-94.0); Nucleated Red Blood Cells % 0 % (-); Platelet Count 230 10^3/uL (130-400); Red Cell Dist. Width 12.8 % (11.5-14.5)
[2025-05-16 08:42] LABS: ALT (SGPT) 11 U/L (0-50); AST (SGOT) 14 U/L (17-59); Albumin 3.1 g/dl (3.5-5.0); Alkaline Phosphatase 91 U/L (38-126); Blood Urea Nitrogen 13 mg/dl (9-20); Calcium 9.2 mg/dl (8.4-10.2); Carbon Dioxide 28 mmol/L (22-30); Chloride 104 mmol/L (98-107); Estimated Creatinine Clearance > 125 ml/min; Glucose 144 mg/dl (70-99); Potassium 4.6 mmol/L (3.5-5.1); Sodium 135 mmol/L (135-145); Total Protein 5.4 g/dl (6.3-8.2); eGFR > 60.00
--- NOTE | 2025-05-16 09:12 | PHA.VAN.FU ---
Vancomycin Assessment / Plan
- Assessment
Renal Function: Stable
WBC's are: Trending Down
In the past 24 hrs, patient has been: Afebrile
Concomitant Antimicrobials: piperacillin/tazobactam
- Dosing Plan
Continue: Vanc 1250mg Q12H
- Monitoring Plan
No level(s) ordered at this time: consider levels in next few days
- Follow Up
Pharmacy will continue to follow.
Vancomycin Follow UP
- -
Patient Age: 64
Patient Sex: Male
Vancomycin Day #: 2
Indication: Skin And Soft Tissue
Requesting Provider: Dr Sethi
Pertinent Antimicrobial Allergies:
consider levels in next few days
Height / Weight:
Height 5 ft 10 in
Actual Weight 72.631 kg
Pertinent Past Medical History: DM 2
- Vital Signs / Lab Results
Temp Pulse Resp BP Pulse Ox
98.1 F 96 16 105/62 98
05/16/25 07:39 05/16/25 08:05 05/16/25 07:39 05/16/25 08:05 05/16/25 07:39
Lab Results - Hematology
05/15/25 05/16/25
12:21 07:40
WBC 12.3 H 11.2 H
Lab Results - Chemistry
05/15/25 05/16/25
12:21 07:40
BUN 14 13
Creatinine 0.5 L 0.5 L
Estimated Creat Clear > 125
Albumin 3.9 3.1 L
05/15/25 05/16/25
18:31 00:38
Lactic Acid 2.7 H 0.6 L
Microbiology Results
05/15/25 18:31 Nasal Screen MRSA (PCR) - Final
Nose MRSA not detected - performed by PCR methodology.
05/15/25 14:08 Gram Stain - Preliminary
Axilla
[2025-05-16 09:14] LABS: TSH 0.79 uIU/ml (0.47-4.68)
[2025-05-16] MEDS: XYLOCAINE 2% WITH EPINEPHRINE 20 ML INFIL (10:00)
--- NOTE | 2025-05-16 10:13 | WOUNDNOTE ---
WOC RN note: Confirmed with Jyoti Temple, general surgery PAD MACHINE FEEDER to cancel WOC RN consult. Surgery managing.
--- NOTE | 2025-05-16 11:00 | CON.GS ---
Consultation
-
Date/Time Consultation Requested: 05/16/2025 9 AM
Date/Time Consultation Performed: 05/16/2020 5:10 AM
Requesting Provider: Dr. Sethi
Performing Provider: Dr. Remy
Reason for Consultation: Left axillary abscess
Medical History
-
Chief Complaint: Left axillary abscess
History of Present Illness:
This is a 64-year-old male who presents with a symptomatic left axillary abscess that he has noticed for several days, worsening over the past 2. Of note he does have a history of diabetes, CAD, atrial fibrillation noncompliant with
anticoagulation. He denies any trauma to this area or previous infections in the armpit. The axilla was incised and drained in the ED however he still has significant erythema and swelling for which we were consulted. He also has continued
hypotension.
Past Medical History
Past Medical History: Reviewed & Noncontributory
Past Surgical History: Reviewed & Noncontributory
Social History
Alcohol: Chronic Alcoholic
Family History
Family History: Reviewed & Not Pertinent
Allergies / Home Medications
Allergy/AdvReac Type Severity Reaction Status Date / Time
acetaminophen (From Percocet) Allergy QUICK Verified 05/15/25 17:52
TEMPER
atorvastatin (From Lipitor) Allergy FLU S/S Verified 05/15/25 17:52
codeine (Codeine) Allergy Nausea / Verified 05/15/25 17:52
Vomiting
oxycodone Allergy Itching Verified 05/15/25 17:52
pravastatin (From Pravachol) Allergy FLU S/S Verified 05/15/25 17:52
�Medication �Instructions �Recorded �Confirmed �Type
aspirin 81 mg tablet 81 mg PO DAILY #60 tabs 04/01/25 05/15/25 Rx
insulin NPH-regular 70-30 U-100 20 unit (0.2 mL) SC BID@0800,1700 04/01/25 05/15/25 Rx
insulin 100 unit/mL subcutaneous #5 mL
pen (Novolin 70-30 FlexPen U-100
Insulin)
metformin 500 mg tablet 500 mg PO BID@0800,1700 #60 tabs 04/01/25 05/15/25 Rx
metoprolol succinate 50 mg 50 mg PO DAILY #30 tabs 04/01/25 05/15/25 Rx
tablet,extended release 24 hr
Review of Systems
-
History Source: Patient
All other systems: Negative unless noted
A 10 point review of systems was completed, and was negative except as per HPI.
Physical Exam
Vital Signs
Temp Pulse Resp BP Pulse Ox
98.1 F 96 16 105/62 98
05/16/25 07:39 05/16/25 08:05 05/16/25 07:39 05/16/25 08:05 05/16/25 07:39
05/15/25 05/16/25 05/17/25
06:59 06:59 06:59
Actual Weight 72.631 kg
Body Mass Index (BMI) 23.0
Lab Results
05/16/25 07:40
05/16/25 07:40
WBC 11.2 10^3/uL (4.8-10.8) H 05/16/25 07:40
Hgb 12.8 g/dL (13.0-18.0) L 05/16/25 07:40
Hct 39.0 % (39.0-52.0) 05/16/25 07:40
Plt Count 230 10^3/uL (130-400) 05/16/25 07:40
Abs Immat Gran (auto) 0.0 10^3/uL (0-0.05) 05/16/25 07:40
Neutrophils % 77.7 % (42.2-75.2) H 05/16/25 07:40
Physical Exam
General: Well Developed
HEENT: Normocephalic
Respiratory: Clear
Skin: Other (He has a fluctuant 4 cm mass in the left axilla with an incision with pus expressible from the wound.)
Data Reviewed
-
Total Time Spent with Patient (in minutes): 45
Assessment / Plan
-
This is a 64-year-old male with a history of diabetes, multiple cardiac issues, alcoholic who presents with a left axillary abscess status post partial incision and drainage.
Repeat bedside I&D performed today. See separate dictated note.
Antibiotics x 4 days. Follow-up cultures
Wound care: Continue packing the wound with iodoform packing wet to dry, change daily. Okay to shower.
Cardiac recommendations noted. Okay for therapeutic anticoagulation tomorrow.
Patient to follow-up with me in clinic in 2 weeks.
All questions answered, patient agreeable to plan of care above.
General surgery will sign off for now, please call with any questions or concerns.
--- NOTE | 2025-05-16 11:13 | W.PN.SURGUPD ---
Surgical Update
Surgical Update
Bedside incision and Drainage
A team time-out was performed confirming the location/laterality of the procedure, consent and allergies reviewed.
Location: Left axilla
Dimensions: 2 cm
Local: 1% Lidocaine
Financial Quantitative Analyst: Guillermina
The skin was cleaned with alcohol and anesthetized with lidocaine. A cruciate incision was made over his prior linear incision and dissection carried down through subcutaneous tissue. The abscess was identified. The wound was irrigated with sterile
saline. Hemostasis was obtained. There was minimal blood loss. The skin was packed with a packing strip. No specimens were sent to Pathology/Culture. The patient tolerated the procedure well, discharge instructions reviewed and all questions were
answered.
[2025-05-16 12:08] LABS: Glucose - Point of Care 147 mg/dl (70-99)
--- NOTE | 2025-05-16 12:42 | W.PN.UPDATE ---
Update Note
Progress Note Update
Patient had 11 beat run of A-fib with aberrancy versus NSVT. Reviewed with electrophysiology will add amiodarone 200 mg twice a day
[2025-05-16] MEDS: PACERONE 200 MG PO ×2 (12:47→20:03)
[2025-05-16 13:04] LABS: Magnesium 1.8 mg/dl (1.6-2.3)
--- NOTE | 2025-05-16 15:02 | CM ---
CM reviewed chart, patient seen bedside, initial assessment completed. Patient is a 64-year-old man with a past medical history of insulin-dependent diabetes who reports gradual onset of bump under his left armpit which is now become painful, red
and swollen over the last 2 to 3 days. Patient resides with his daughter and granddaughter in an apartment. Patient denies DME, VN/SNF hx. PCP Shivam Mensah, [facility]. Patient does not have insurance, reports he is
employed [employer], is not able to afford insurance. CM discussed consult for VN for wound care, discussed with no insurance, not likely to get any VN, patient aware. CM will continue to follow for all discharge planning needs.
Plan; home no needs, patient does not have insurance, unable to get VN
[2025-05-16] MEDS: NOVOLOG FLEXPEN-MODERATE RESISTANCE 5 UNITS SC (16:47)
[2025-05-16 16:48] LABS: Glucose - Point of Care 296 mg/dl (70-99)
--- NOTE | 2025-05-16 18:22 | PTCARENOTE ---
Patient transferred to 4W to 4E for private room due to +MRSA swab. Patient AAOx3, no acute complaints at this time. Oriented patient to room and plan of care. Call rowan within reach.
[2025-05-16 21:32] LABS: Glucose - Point of Care 223 mg/dl (70-99)
[2025-05-17 02:52] VITALS: BP 127/68
[2025-05-17] MEDS: ZOSYN 50 IV (05:13)
[2025-05-17] MEDS: VANCOCIN 275 MG IV (06:19)
[2025-05-17 07:00] VITALS: BP 136/79
[2025-05-17 07:09] LABS: Glucose - Point of Care 100 mg/dl (70-99)
[2025-05-17] MEDS: NOVOLOG FLEXPEN-MODERATE RESISTANCE SC (07:35)
[2025-05-17] MEDS: PACERONE 200 MG PO (07:37)
[2025-05-17] MEDS: LOW STRENGTH ASPIRIN 81 MG PO (07:37)
[2025-05-17] MEDS: TOPROL XL 25 MG PO (07:37)
[2025-05-17] MEDS: HEPARIN 5000 UNITS SC (07:38)
[2025-05-17] MEDS: NOVOLOG MIX 70/30 FLEXPEN 20 UNITS SC (07:41)
[2025-05-17 08:53] LABS: Hematocrit 42.1 % (39.0-52.0); Hemoglobin 13.9 g/dL (13.0-18.0); Mean Corp Hgb Conc. 33.0 g/dL (33.0-37.0); Mean Corpuscular Volume 90.9 fL (80.0-94.0); Nucleated Red Blood Cells % 0 % (-); Platelet Count 265 10^3/uL (130-400); Red Cell Dist. Width 12.8 % (11.5-14.5)
[2025-05-17 09:06] LABS: ALT (SGPT) 13 U/L (0-50); AST (SGOT) 17 U/L (17-59); Albumin 3.5 g/dl (3.5-5.0); Alkaline Phosphatase 90 U/L (38-126); Blood Urea Nitrogen 12 mg/dl (9-20); Calcium 9.3 mg/dl (8.4-10.2); Carbon Dioxide 31 mmol/L (22-30); Chloride 104 mmol/L (98-107); Estimated Creatinine Clearance > 125 ml/min; Glucose 90 mg/dl (70-99); Potassium 3.9 mmol/L (3.5-5.1); Sodium 141 mmol/L (135-145); Total Protein 5.9 g/dl (6.3-8.2); eGFR > 60.00
--- NOTE | 2025-05-17 09:46 | W.PN.CARDCBS ---
Today's Communication / Plan
-
Cont rate control strategy for persistent atrial flutter
Cont Toprol for rate control
Cont Pradaxa for prophylaxis
Eventual consideration for TAMIKO/cv as outpt once tolerating and able to afford anticoagulation
Cont amiodarone for rate control and for episode of NSVT
d/c on amiodarone 200 mg daily.
Recent echo with preserved EF
Outpt follow up to be arranged.
Impression / Plan
-
.
PCP: Garret CASTANEDA
Shader And Toner: Dr. ZIGGY Smith
Impression:
Admitted with left axillary abscess
Leukocytosis
Elevated lactic acid
Persistent atrial flutter
NSVT
Previous admission for SBO and atrial flutter 03/10/2024 until 03/13/2024
Persistent atrial flutter, present since at least 02/2024
Not chronically anticoagulated, unable to afford OAC as an outpatient
Type 2 diabetes, HgbA1c 16%
Hx hypertrophic cardiomyopathy
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
HTN
cLBBB
Mild to mod MR by echo 05/16/22, stable on echo 03/11/2024
DM 2
Depression
Hypercholesterolemia
Ongoing tobacco abuse
History of sleep apnea
Lexiscan nuclear stress test 07/19/2017: Moderate area of mildly decreased perfusion that is minimally reversible in the inferior lateral, inferior, inferior septal segments consistent with soft tissue attenuation, EF 55%, dilated left ventricle
Echo 07/19/2017:�EF 70 to 75%, severe LVH, stage I DD, LVOT gradient peak gradient 82 mmHg, moderate dilated LA, normal RA, thickened MV with moderate systolic anterior motion in the anterior leaflet and moderate eccentric posterior directed MR.
Calcified AV.� Trace AI.� Trace TR, PAP 20 to 25 mmHg
Echo 05/16/22: EF 55-60%, normal wall motion, severe conc LVH, LVOT gradient 102 mmHg at rest that increases 177 mmHg with Valsalva, stage I diastolic dysfunction, mild aortic regurgitation, mildly dilated aortic root
Echo 03/11/2024: EF 50 to 55%, LVOT 147 that increases to 229 with Valsalva. Severe concentric LVH biatrial enlargement. Mild to moderate MR. Mild to moderate AI. Moderate TR, PAP 20 to 25 mmHg
Echo 04/01/2025: Hypertrophic heart disease with severe asymmetric septal hypertrophy
Left ventricular ejection fraction visually estimated 50-55%
Dynamic LVOT obstruction with peak LVOT gradient 54 mmHg with Valsalva
Normal RV size and systolic function
Moderately dilated left atrium
Thickened mitral valve leaflets with systolic anterior motion of the anterior
leaflet. Moderate eccentric, posteriorly directed mitral regurgitation.
Cannot exclude prolapse of chordal structure.
Trileaflet thickened and calcified aortic valve with reduced systolic
excursion. Mild aortic stenosis. Peak/mean gradients 24/12 mmHg. Moderate
aortic insufficiency
Trace tricuspid insufficiency
Estimated pulmonary artery pressure of 21-23 mmHg assuming a right atrial
pressure of 3 to 5 mmHg.
No pericardial effusion
Compared to prior echocardiogram dated 03/11/2024, there is an area in
previously reported gradients which were reported as millimeters of mercury
instead of centimeters per second. Study personally reviewed with LVOT
gradient at rest 9 mmHg and with Valsalva 21 mmHg. Aortic valve is now mildly
stenotic. Mitral regurgitation previously reported mild to moderate. LV
ejection fraction remains unchanged.
Plan:
Cont rate control strategy for persistent atrial flutter
Cont Toprol for rate control
Cont Pradaxa for prophylaxis
Eventual consideration for TAMIKO/cv as outpt once tolerating and able to afford anticoagulation
Cont amiodarone for rate control and for episode of NSVT
d/c on amiodarone 200 mg daily.
Recent echo with preserved EF
Outpt follow up to be arranged.
HPI and consult EP plan info:
Difficult situation and that he has difficulty paying for medications and I also wonder whether compliance is an issue. Continue current medications as ordered as his heart rates are in the high 90s on average. Once he establishes Medicare
hopefully as an outpatient he can take some of these medications long-term. Continue metoprolol for rate control and would start Pradaxa 150 mg twice daily while here to see if he can tolerate and with the reduced cost of a generic perhaps he can
continue this at discharge.
-Ultimately would consider TAMIKO guided cardioversion to restore sinus rhythm given his hypertrophic cardiomyopathy would be better to have him in sinus.
-Patient with persistent atrial flutter. We were previously unable to perform TAMIKO/CV as his admission 02/2024 was due to SBO and outpatient care complicated by lack of medical insurance.
-Patient plans to sign up for Medicare when he turns 65 in July, but until then he will not have the ability to pay for OAC. If patient were to have TAMIKO/CV this admission we could use a 30-day free [employer] card to get us through that month.
Otherwise he will likely be unable to afford both his insulin and generic Pradaxa which would be the only generic DOAC available. He would be unable to use warfarin as he would have to pay [id number] for INRs.
Progress Note - Shader And Toner
Subjective
Date of Service: May 17, 2025
Pt seen and examined. No cp or dyspnea
Objective
Labs:
05/17/25 07:09
05/17/25 07:09
Labs
Hgb 13.9 g/dL (13.0-18.0) 05/17/25 07:09
Hct 42.1 % (39.0-52.0) 05/17/25 07:09
Plt Count 265 10^3/uL (130-400) 05/17/25 07:09
Sodium 141 mmol/L (135-145) 05/17/25 07:09
Potassium 3.9 mmol/L (3.5-5.1) 05/17/25 07:09
BUN 12 mg/dl (9-20) 05/17/25 07:09
Creatinine 0.5 mg/dL (0.7-1.3) L 05/17/25 07:09
Glucose 90 mg/dl (70-99) 05/17/25 07:09
Vital Signs and I&O:
Vital Signs
Temp Pulse Resp BP Pulse Ox
98.2 F 115 17 126/79 98
05/17/25 07:00 05/17/25 07:37 05/17/25 07:00 05/17/25 07:37 05/17/25 07:00
Vital Signs
Temp Pulse Resp BP Pulse Ox
98.2 F 115 17 126/79 98
05/17/25 07:00 05/17/25 07:37 05/17/25 07:00 05/17/25 07:37 05/17/25 07:00
Intake & Output
05/15/25 05/16/25 05/17/25 05/18/25
06:59 06:59 06:59 06:59
Intake Total 0 / 0 1495 / 1495 240 / 240
Balance 0 / 0 1495 / 1495 240 / 240
Physical Exam
Physical Exam
General: No acute distress, AAOX3
Neck: Negative JVD
Heart: Irregularly irregular, Negative S3 positive S1/S2, Negative S4, No murmur
Lungs: CTA b/l, negative wheezes/rales/rhonchi
Abd: Positive BS, NT/ND, neg rebound/rigidity/guarding
Ext: Negative cyanosis/clubbing/edema
Neuro: nonfocal
--- NOTE | 2025-05-17 09:48 | W.PN.HOSP.TC ---
Addendum entered and electronically signed by Sergio Sethi MD 05/17/25 10:00:
#Patient had 11 beat run of A-fib with aberrancy versus NSVT
#Hx of Afib, paroxysmal
Pradaxa as per cardio
Started Amiodarone on 05/16/25
Original Note:
Today's Communication/Plan
-
dc
Assessment / Plan
Assessment / Plan
64yo M with PMHx of Aflutter, DM, CAD, WPW syndrome, HTN, hypertrophic CM came with 2 days of L subaxillary bump with redness. Does not report trauma to the area. Found subq abscess in ED that was drained, however also became hypotensive with
concern for early developing sepsis. Improvd on Abx, had repeated I&D on the floor by [facility] to remove the rest of infected material. WoundCx grew MRSA sensitive to doxy. Reasonable to d/c to complete 10 days of doxy withprecautions to avoid calcium
supplements, multivitamins and direct sunlight. Patient to follow up with [facility] upon d/c
A/P:
#Cellulitis, L subaxillary abscess with early sepsis on admission
s/p I&D in ED and repeated I&D by [facility] on 05/17/25
Wound Cx MRSA sensitive to Doxy
BCx NTD
#DM type 2 with neuropathy
cont home insulin
Check HgbA1c
Accuchekcs, Insulin SS, DM diet
#Afib, a.flutter
now not on AC, only ASA for CAD
previously on Coumadin
Cardio consult: limited by absence of insurance, cont BB and consider to start Pradaxa
Toprol decreased to 25mg due to persistent borderline-low BP
#Essential HTN
#CAD, stable
cont home meds
DVT ppx Hep
Full code
I have spent at least 36min reviewing chart, test results, communication with consultants and providing direct patient care
Anticipated Discharge: Today
Subjective/Interval History
-
Date of Service: May 17, 2025
Objective Data
-
Labs:
Laboratory Results
05/17/25
07:09
WBC 8.3
Hgb 13.9
Hct 42.1
Plt Count 265
Sodium 141
Potassium 3.9
Chloride 104
Carbon Dioxide 31 H
BUN 12
Creatinine 0.5 L
Glucose 90
Calcium 9.3
Total Bilirubin 0.6
AST 17
ALT 13
Alkaline Phosphatase 90
Vital Signs:
Vital Signs
Temp Pulse Resp BP Pulse Ox
98.2 F 115 17 126/79 98
05/17/25 07:00 05/17/25 07:37 05/17/25 07:00 05/17/25 07:37 05/17/25 07:00
I&O
05/16/25 05/17/25 05/18/25
06:59 06:59 06:59
Intake Total 0 / 0 1495 / 1495 240 / 240
Balance 0 / 0 1495 / 1495 240 / 240
Review of Systems
-
History Source: Patient
All other systems: Reviewed and negative
Physical Exam
-
General: No Apparent Distress
HEENT: Normocephalic
Respiratory: Clear to Auscultation
GI: Soft, Nontender and Nondistended
Musculoskeletal: No Clubbing, No Cyanosis and No Edema
Neuro: Awake, Alert, Oriented and AO x 3
Psych: Calm
--- NOTE | 2025-05-17 10:51 | W.DCSUMMARY ---
Discharge Summary
Discharge Data
Date of Admission: 05/15/25
Date of Discharge: 05/17/25
-
Pending Results: No
Hospital Course
64yo M with PMHx of Aflutter, DM, CAD, WPW syndrome, HTN, hypertrophic CM came with 2 days of L subaxillary bump with redness. Does not report trauma to the area. Found subq abscess in ED that was drained, however also became hypotensive with
concern for early developing sepsis. Improvd on Abx, had repeated I&D on the floor by [facility] to remove the rest of infected material. WoundCx grew MRSA sensitive to doxy. Reasonable to d/c to complete 10 days of doxy with precautions to avoid calcium
supplements, multivitamins and direct sunlight. Patient to follow up with [facility] upon d/c. As per discussion with cardiology - started on Pradaxa and daily Amiodarone and ASA stopped. Unfortunately management limited with absence of the insurance.
Patient has also a friend, who is VN and will help with dressing changes. Asked RN to provide teaching and, if possible, supplements as well. Medically stable for d/c home
I have spent at least 36min reviewing chart, test results, communication with consultants and providing direct patient care
Patient was manahed for:
#Cellulitis, L subaxillary abscess with early sepsis on admission
#DM type 2 with neuropathy
#WPW syndrome
#Afib, a.flutter permanent
#Patient had 11 beat run of A-fib with aberrancy versus NSVT
#Essential HTN
#CAD, stable
Discharge Plan
-
Patient Disposition: Home with Home Care
Discharge Diagnosis/Procedures: Subcutaneous abscess
Bathing Restrictions: OK to Shower
Wound Care: Continue packing the wound with iodoform packing wet to dry, change daily. Okay to shower.
Referrals:
Adrian Mensah CRNP [Family Provider, Family Practice]
Ramón Sparrow MD [Active, Cardiology] - in one to two weeks
Arias Remy MD [Active, Surgical]
Additional Discharge Medication Instructions: avoid calcium supplements, multivitamins and direct sunlight while on Doxycycline
Prescriptions:
New
doxycycline hyclate 100 mg Capsule
100 mg PO Q12 Qty: 20 0RF
amiodarone [Pacerone] 200 mg Tablet
200 mg PO DAILY Qty: 30 0RF
dabigatran etexilate [Pradaxa] 150 mg Capsule
150 mg PO BID Qty: 60 0RF
metoprolol succinate 25 mg Tablet Extended Release 24 Hr
25 mg PO DAILY Qty: 30 0RF
Continued
Novolin 70-30 FlexPen U-100 100 unit/mL (70-30) Insulin Pen
20 unit SC BID@0800,1700 Qty: 5 1RF
Rx Instructions:
Take with breakfast and dinner
metformin 500 mg tablet
500 mg PO BID@0800,1700
Discontinued
metoprolol succinate 50 mg Tablet Extended Release 24 Hr
50 mg PO DAILY Qty: 30 0RF
aspirin 81 mg tablet
81 mg PO DAILY Qty: 60 0RF
Discharge Orders:
Discharge Patient (As Directed); Ordered 05/17/25
Ordered By: Sergio Sethi
Discharge Date and Time
Print Language: SYRIAC
[2025-05-17 11:00] VITALS: BP 135/72
[2025-05-17] MEDS: VIBRAMYCIN 100 MG PO (11:02)
[2025-05-17 11:56] LABS: Glucose - Point of Care 192 mg/dl (70-99)
[2025-05-17] MEDS: NOVOLOG FLEXPEN-MODERATE RESISTANCE 1 UNITS SC (11:56)
--- NOTE | 2025-05-17 12:46 | PTCARENOTE ---
pt education provided surrounding wound care of left lower axilla abscess site. pt expressed understanding, states he has a friend who will help if needed. supplies provided.
--- NOTE | 2025-05-17 13:42 | CM ---
Patient has been medically cleared for discharge to home with no additional skilled services. Patient does not have insurance. services not available. Patient was educated on wound care. A friend will assist. Patient has arranged for transport
home.
== END 2025-05-17 14:38 | disposition home or self-care (01) | DRG 872 ==
LOC: 4 WEST ACU 18:51
PROVIDERS: Emergency Medicine; ADMITTING PHYSICIAN Internal Medicine; CONSULT PHYSICIAN Internal Medicine Cardiovascular Disease; CONSULT PHYSICIAN Surgery; EMERGENCY PHYSICIAN Emergency Medicine; FAMILY PHYSICIAN Nurse Practitioner Family
DX: A41.9 Sepsis, unspecified organism (principal); L02.412 Cutaneous abscess of left axilla; I48.92 Unspecified atrial flutter; E87.20 Acidosis, unspecified; L03.112 Cellulitis of left axilla; I45.6 Pre-excitation syndrome; I48.91 Unspecified atrial fibrillation; I11.9 Hypertensive heart disease without heart failure; I25.10 Atherosclerotic heart disease of native coronary artery without angina pectoris; Z79.4 Long term (current) use of insulin; Z79.84 Long term (current) use of oral hypoglycemic drugs; F17.200 Nicotine dependence, unspecified, uncomplicated; Z88.5 Allergy status to narcotic agent; Z79.82 Long term (current) use of aspirin; Z79.01 Long term (current) use of anticoagulants; E11.40 Type 2 diabetes mellitus with diabetic neuropathy, unspecified; E78.00 Pure hypercholesterolemia, unspecified; F32.A Depression, unspecified; G47.33 Obstructive sleep apnea (adult) (pediatric); Z91.148 Patient's other noncompliance with medication regimen for other reason; Z96.641 Presence of right artificial hip joint; G47.30 Sleep apnea, unspecified
CPT/HCPCS: 10060; 80053; 82947; 82962; 83605; 83735; 84132; 84443; 85025; 87040; 87070; 87147; 87186; 87205; 87641; 93005; 96365; 96367; 96375; 99291; 99406

== ENCOUNTER 2025-06-27 16:34 | Emergency (ER) | payer SELFPAY ==
[2025-06-27] VITALS (8 sets, daily range): BP systolic 95–146; BP diastolic 76–87; BMI 23.9
--- NOTE | 2025-06-27 18:23 | ED.GENMED ---
ED Provider Triage
<Amarjit Lizarraga MD, Resident - Last Filed: 06/27/25 22:24>
-
Patient seen by provider in Triage?: Seen in Triage
History of Present Illness
<Amarjit Lizarraga MD, Resident - Last Filed: 06/27/25 22:24>
General
Chief Complaint: Abdominal Symptoms
Source: patient
Exam Limitations: none
Time Seen by Provider: 06/27/25 17:54
Nursing documentation reviewed up to this point in time: agreed with
History of Present Illness
History of Present Illness:
64-year-old male who presents with sudden moderate intermittent crampy abdominal pain associated with more than 5 episodes of watery diarrhea since yesterday night. No fever, chills, vomiting, weight loss, nausea, confusion, shortness of breath,
cough, sore throat. No relieving factors. No recent history of travel or sick contacts. Patient smokes, no alcohol no drugs.
Past History
<Amarjit Lizarraga MD, Resident - Last Filed: 06/27/25 22:24>
Past History
ED Past Medical History: Arrthythmia (wpw), CAD, HTN, Hypercholesterolemia, NIDDM and Other (HOCM, WPW, LBBB, MR, BLAS, Migraines, )
ED Past Surgical History: Cardiac (ablation) and Orthopedic (Right hip replacement, Right hand surgery)
Social History
Tobacco: Smoker
Alcohol: None
Drug: None
Personal:
Living: with family
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
Family History
Family History: Other (Noncontributory)
Review of Systems
<Amarjit Lizarraga MD, Resident - Last Filed: 06/27/25 22:24>
Review of Systems
All Other Systems: ROS reviewed and negative except as documented in HPI and ROS
: Denies dysuria, frequency, incontinence or difficulty voiding
Skin: Denies itching or rash
Neurological: Reports no symptoms
Phy Exam
<Amarjit Lizarraga MD, Resident - Last Filed: 06/27/25 22:24>
General Physical Exam
General Presentation: well appearing and no apparent distress
General age: appears stated age
General Skin: warm and dry
General Habitus: normal
General Mental: alert
Cardiovascular Exam
Cardiovascular Exam: other (Irregular rate on palpation of pulse, murmur over left upper sternal border ( pulmonic))
Pulmonary Exam
Pulmonary Exam: lungs clear and no respiratory distress
Gastrointestinal Exam
Gastrointestinal Exam: normal bowel sounds, soft, non distended and tender (There is mild periumbilical tenderness on palpation)
Neurological Exam
Neurological Exam: alert and oriented x3
Musculoskeletal Exam
Musculoskeletal Exam: full ROM and no edema
Psychiatric Exam
Psychiatric Exam: normal mood/affect
Course
<Amarjit Lizarraga MD, Resident - Last Filed: 06/27/25 22:24>
Orders/Labs/Results
Orders:
Orders
06/27/25 18:33
CBC/With Diff [Complete Blood Count/With Diff] Urgent
CMP [Comprehensive Metabolic Panel] Urgent
06/27/25 18:36
0.9% Sodium Chloride 1000 ml [Nss] 1,000 ml IV BOLUS
06/27/25 19:00
0.9% Sodium Chloride 500 ml [Nss] 500 ml IV 75 mls/hr
06/27/25 20:01
C DIFF [C difficile Antigen & Toxins] Urgent
LISA Source: Feces/Stool
Specimen Description:
Date Specimen was Collected: 06/27/25
Time Specimen was Collected: 19:59
Stool Culture Urgent
LISA Source: Feces/Stool
Specimen Description:
Date Specimen was Collected: 06/27/25
Time Specimen was Collected: 19:59
Abnormal Lab Results
06/27/25
18:33
RBC 4.66 L 10^6/uL
(4.70-6.10)
MPV 10.8 H fL
(7.4-10.4)
Lymphocytes % 19.6 L %
(20.5-51.1)
Sodium 134 L mmol/L
(135-145)
Creatinine 0.5 L mg/dL
(0.7-1.3)
Glucose 268 H mg/dl
(70-99)
Total Protein 5.7 L g/dl
(6.3-8.2)
Albumin 3.4 L g/dl
(3.5-5.0)
06/27/25 18:33
06/27/25 18:33
Vital Signs
Initial and Last Documented VS:
Initial Vital Signs
Temp Pulse Resp BP Pulse Ox
97.8 F 121 20 111/78 99
06/27/25 16:35 06/27/25 16:35 06/27/25 16:35 06/27/25 16:35 06/27/25 16:35
Last Documented Vital Signs
Temp Pulse Resp BP Pulse Ox
97.8 F 92 20 118/76 100
06/27/25 16:35 06/27/25 20:56 06/27/25 16:35 06/27/25 21:00 06/27/25 21:30
<Mark Hsu MD - Last Filed: 06/27/25 19:13>
Orders/Labs/Results
Orders:
Orders
06/27/25 18:33
CBC/With Diff [Complete Blood Count/With Diff] Urgent
CMP [Comprehensive Metabolic Panel] Urgent
06/27/25 18:36
0.9% Sodium Chloride 1000 ml [Nss] 1,000 ml IV BOLUS
06/27/25 19:00
0.9% Sodium Chloride 500 ml [Nss] 500 ml IV 75 mls/hr
06/27/25 20:01
C DIFF [C difficile Antigen & Toxins] Urgent
LISA Source: Feces/Stool
Specimen Description:
Date Specimen was Collected: 06/27/25
Time Specimen was Collected: 19:59
Stool Culture Urgent
LISA Source: Feces/Stool
Specimen Description:
Date Specimen was Collected: 06/27/25
Time Specimen was Collected: 19:59
Abnormal Lab Results
06/27/25
18:33
RBC 4.66 L 10^6/uL
(4.70-6.10)
MPV 10.8 H fL
(7.4-10.4)
Lymphocytes % 19.6 L %
(20.5-51.1)
Sodium 134 L mmol/L
(135-145)
Creatinine 0.5 L mg/dL
(0.7-1.3)
Glucose 268 H mg/dl
(70-99)
Total Protein 5.7 L g/dl
(6.3-8.2)
Albumin 3.4 L g/dl
(3.5-5.0)
06/27/25 18:33
06/27/25 18:33
Vital Signs
Initial and Last Documented VS:
Initial Vital Signs
Temp Pulse Resp BP Pulse Ox
97.8 F 121 20 111/78 99
06/27/25 16:35 06/27/25 16:35 06/27/25 16:35 06/27/25 16:35 06/27/25 16:35
Last Documented Vital Signs
Temp Pulse Resp BP Pulse Ox
97.8 F 92 20 118/76 100
06/27/25 16:35 06/27/25 20:56 06/27/25 16:35 06/27/25 21:00 06/27/25 21:30
<Amarjit Lizarraga MD, Resident - Last Filed: 06/27/25 22:24>
MDM/Problems Addressed
Differential Diagnosis Includes:
Infectious gastroenteritis, clostridium difficile, microscopic colitis, irritable bowel syndrome, malabsorption
MDM/Problems Addressed:
64 year old male presents with abdominal pain and more than 5 episodes of diarrhea. GI exam shows mild periumbilical tenderness on palpation.
- CBC unremarkable
- CMP shows a glucose of 268
- Stool studies ordered
- C difficile ordered
- Normal saline bolus ordered
- Patients vitals are normal, stable, feels better, will discharge home with instructions on how to manage his diarrhea symptoms. Also refilled patients metformin and insulin and provided information on how to find a PCP with the primary
residency clinic.
<Amarjit Lizarraga MD, Resident - Last Filed: 06/27/25 22:24>
*Pulse Oximetry
SaO2: 99
Oxygen Mode of Delivery: Room air
Patient hypoxic: no
*Critical Care Note
Total Time (30-74mins, 75-104mins- exclusive of procedures): Not Applicable
ED Attending Note
<Amarjit Lizarraga MD, Resident - Last Filed: 06/27/25 22:24>
-
Portions of this chart may have been created with voice recognition software.� Occasional wrong word or��sound alike� substitutions may have occurred due to the inherent limitations of voice recognition software.
<Mark Hsu MD - Last Filed: 06/27/25 19:13>
ED Attending Note
Patient seen and examined by attending physician: Yes
I performed a history and physical exam of patient and discussed management with resident, I reviewed resident's note and agree with documented findings and plan of care.: Yes
ED Attending Note:
I have seen and evaluated the patient with a [id number] encounter. I have spoken to the resident and involved in the medical history, the physical exam, medical decision making.
Evaluation and management service: agree unless noted differently below.
Results interpretation: agree unless noted differently below.
Focused HPI: 64-year-old male with history as noted presents to the ER for evaluation of diarrhea and fatigue. Patient reports that symptoms started overnight�he says that he had profuse watery diarrhea multiple times overnight. He says that this
morning was very fatigued and slept most of the day. Still having loose stools this afternoon and ultimately came to the ER for assessment. Denies any blood in his stools. He has not had any nausea or vomiting�in fact, he says he is mildly hungry
and asking for crackers during my initial assessment. He says he has not had a fever. He denies any abdominal pains. He denies any other acute complaints. He has not had any recent travel. He says he was on antibiotics about a month ago for
infection in his left arm but no more recent antibiotics.
Physical exam: Patient is tachycardic, soft blood pressure 95/76 during my assessment but no fever and no hypoxia. His abdomen is soft, nondistended, nontender to deep palpation. His mucous membranes are slightly dry. Skin warm and dry. Good
pulses throughout.
Medical Decision Makin-year-old male with history as noted presents with diarrheal illness. Vitals and exam as above. Overall he appears to be mildly dehydrated. Suspect likely gastroenteritis. Low suspicion for intra-abdominal emergency
will hold off on emergent abdominal imaging given lack of pain or tenderness. Will provide IV fluid resuscitation. Send off basic labs. Stool studies if able. Reassess at the above.
Labs reviewed: CBC shows no clinically significant abnormalities. CMP shows acceptable electrolytes. Glucose is slightly elevated at 268 in the setting of known diabetes. Continue with fluids.
Discharge Plan
Departure
Patient Disposition: Home (Routine Discharge)
Date of Disposition: 06/27/25
Time of Disposition: 21:09
Patient with high blood pressure during this ER visit?: No
Condition: Fair
Discharge Problem:
Diarrhea in adult patient, Diabetes mellitus
Instructions: Diarrhea in adults - ED (DC), High blood sugar in adults - ED (DC)
Prescriptions:
New
metformin 500 mg tablet
500 mg PO BID Qty: 60 0RF
Novolin 70-30 FlexPen U-100 100 unit/mL (70-30) insulin pen
10 unit SC DAILY Qty: 15 0RF
Novolin 70-30 FlexPen U-100 100 unit/mL (70-30) insulin pen
20 unit SC DAILY Qty: 15 0RF
No Action
Novolin 70-30 FlexPen U-100 100 unit/mL (70-30) Insulin Pen
20 unit SC BID@0800,1700 Qty: 5 1RF
Rx Instructions:
Take with breakfast and dinner
metformin 500 mg tablet
500 mg PO BID@0800,1700
doxycycline hyclate 100 mg Capsule
100 mg PO Q12 Qty: 20 0RF
amiodarone [Pacerone] 200 mg Tablet
200 mg PO DAILY Qty: 30 0RF
dabigatran etexilate [Pradaxa] 150 mg Capsule
150 mg PO BID Qty: 60 0RF
metoprolol succinate 25 mg Tablet Extended Release 24 Hr
25 mg PO DAILY Qty: 30 0RF
Referrals:
Adrian Mensah CRNP [Family Provider, Family Practice]
Activity Restrictions/Additional Instructions:
- Stick to a bland diet. Stick to foods like bananas, rice, oatmeal, applesauce.
- Avoid caffeine, alcohol, spicy foods
- stay hydrated with fluids/ Oral rehydration salts
Thank you for visiting the Emergency Department at [facility].
1. Please schedule a follow up appointment as directed. Call first thing tomorrow morning to make an appointment.
2. If indicated, please take your medications as instructed and indicated on discharge paperwork.
3. If any of your symptoms do not improve, or persist, or become more severe within 6-12 hours, please return to the emergency department for further care.
4. Please return to the emergency department if you develop a headache, neck pain/stiffness, fever greater than 100.4F, chest pain, shortness of breath, persistent nausea, vomiting, slurred speech, difficulty walking, numbness/tingling, weakness,
signs of infection or any other symptoms that are worrisome to you.
Please call [phone] if you have any questions., alcohol, spicy foods
Interventions
Interventions:
*Risk Screen - Suicide Last Done: 06/27/25 21:50
*General Assessment Last Done: 06/27/25 16:35
*Neglect/Abuse Screening Last Done: 06/27/25 21:50
*ED COVID-19 Vaccine History Last Done: 06/27/25 18:41
*ED Influenza Vaccine History Last Done: 06/27/25 18:41
*Nursing Disposition Last Done: 06/27/25 21:50
ZR-[id number]-[id number] Assessment Last Done: 06/27/25 18:41
Discharge Date and Time
Discharge Date/Time: 06/27/25 21:50
Print Language: MACANESE
[2025-06-27 18:53] LABS: Hematocrit 40.9 % (39.0-52.0); Hemoglobin 13.8 g/dL (13.0-18.0); Mean Corp Hgb Conc. 33.7 g/dL (33.0-37.0); Mean Corpuscular Volume 87.8 fL (80.0-94.0); Nucleated Red Blood Cells % 0 % (-); Platelet Count 231 10^3/uL (130-400); Red Cell Dist. Width 13.5 % (11.5-14.5)
[2025-06-27 19:09] LABS: ALT (SGPT) 18 U/L (0-50); AST (SGOT) 17 U/L (17-59); Albumin 3.4 g/dl (3.5-5.0); Alkaline Phosphatase 82 U/L (38-126); Blood Urea Nitrogen 13 mg/dl (9-20); Calcium 9.3 mg/dl (8.4-10.2); Carbon Dioxide 28 mmol/L (22-30); Chloride 103 mmol/L (98-107); Estimated Creatinine Clearance 124 ml/min; Glucose 268 mg/dl (70-99); Potassium 4.4 mmol/L (3.5-5.1); Sodium 134 mmol/L (135-145); Total Protein 5.7 g/dl (6.3-8.2); eGFR > 60.00
[2025-06-27] MEDS: NSS 1000 IV (19:54)
== END 2025-06-27 21:50 | disposition home or self-care (01) ==
LOC: EMR 16:34
PROVIDERS: EMERGENCY PHYSICIAN Emergency Medicine; FAMILY PHYSICIAN Nurse Practitioner Family
DX: R19.7 Diarrhea, unspecified (principal); E11.65 Type 2 diabetes mellitus with hyperglycemia; I25.10 Atherosclerotic heart disease of native coronary artery without angina pectoris; I45.6 Pre-excitation syndrome; I42.1 Obstructive hypertrophic cardiomyopathy; I10 Essential (primary) hypertension; E78.00 Pure hypercholesterolemia, unspecified; I44.7 Left bundle-branch block, unspecified; G47.33 Obstructive sleep apnea (adult) (pediatric); F17.200 Nicotine dependence, unspecified, uncomplicated; Z79.84 Long term (current) use of oral hypoglycemic drugs; Z79.4 Long term (current) use of insulin; Z79.01 Long term (current) use of anticoagulants; Z96.641 Presence of right artificial hip joint
CPT/HCPCS: 99284; 96360; 80053; 85025; 87045; 87046; 87324; 87427; 87449